=== PATIENT | female | born 1950 | race Caucasian/White ===

== ENCOUNTER → 2021-05-02 | Outpatient (CLI) | payer MEDICARE, OTHER, SELFPAY ==
--- NOTE | 2021-05-02 11:30 | PET_ITS ---
EXAMINATION: FDG PET/CT INDICATIONS: A 71-year-old female with history of cholangiocarcinoma presenting for restaging examination. COMPARISON EXAMINATION: CT of the abdomen and pelvis report dated 04/20/21, CT of the chest report dated 04/19/21 INDEX LESION SIZE SUV INTERPRETATION Abdominal retroperitoneum, pericaval, retrocrural soft tissue adenopathy 28.3 x 24.6-mm (largest) (frame 113) 8.9 (max) Fulfills quantitative criteria for viable neoplasm Right hemithorax pleural interface 7.1-mm (frame 185) 2.4 Fulfills quantitative criteria for viable neoplasm Left lobe hepatic parenchyma, segment IVb 27.2-mm (frame 134) 5.3 ratio > 2.0 Fulfills quantitative criteria for viable neoplasm, correlation with magnetic resonance imaging may be of benefit NON-INDEX LESION SIZE SUV INTERPRETATION Bilateral thoracic perihilum 2.1 (max) Quantitative criteria for viable neoplasm are not fulfilled TECHNIQUE: Following the intravenous administration of F-18 deoxyglucose, multiplanar image acquisitions of the neck, chest, abdomen and pelvis to level of mid thigh, obtained at one hour post radiopharmaceutical administration contemporaneously interpreted with the current CT of the neck, chest, abdomen and pelvis to level of mid thigh, dated 05/02/[address] of the abdomen and pelvis report dated 04/20/21, CT of the chest report dated 04/19/21 reveal: FINDINGS: 1. Multifocal increased glucose metabolism is defined in the upper-lower abdominal retroperitoneum, retrocrural and pericaval lymph node distributions generating a calculated maximal standard uptake value of 8.9. The maximal axial diameter of the largest individual metabolic, morphologic abnormality on review of CT of the abdomen and pelvis dated 05/02/21 is 28.3-mm (transverse) x 24.6-mm (AP). 2. Focal increased glucose concentration is observed in the right upper abdomen which appears associated with the left lobe of the hepatic (2.7) parenchyma involving segment IVb. The calculated maximal standard uptake value is 5.3, with a lesion to liver background ratio greater than 2.0. The maximal axial diameter of the metabolic abnormality is 27.2-mm (AP). 3. Enhanced FDG is observed in the right mid anteromedial hemithorax corresponding to peristernal soft tissue density generating a calculated maximal standard uptake value of 2.4. Borderline quantitative criteria for viable neoplasm are not fulfilled. The maximal axial diameter of the corresponding soft t issue density on review of CT of the chest dated 05/02/21 is 7.1-mm (transverse). 4. Normal physiologic distribution of the radiopharmaceutical is apparent in the splenic parenchyma, both renal units, bladder and visualized intestinal tract. The visualized portion of the cerebral cortical-subcortical structures demonstrate symmetric and preserved glucose metabolism. Prominent collecting system activity is noted in the left renal unit extending from the renal pelvis to the ureterovesical junction. Mild increased tracer concentration appears evident in the bilateral thoracic perihilum generating a calculated maximal standard uptake value of 2.1. Quantitative criteria for viable neoplasm are not fulfilled. Pertinent CT findings are as follows: CHEST: There are no parenchymal densities-nodules defined in the right and left hemithorax with discernible increased tracer concentration. There is atherosclerotic calcification defined in the thoracic aorta without evidence of dilatation-aneurysm formation. Bilateral axillary soft tissue with fatty hilus is ametabolic. There are no parenchymal densities-nodules defined in the right and left hemithorax with discernible increased tracer concentration. ABDOMEN AND PELVIS: There is atherosclerotic calcification defined in the abdominal aorta without evidence of dilatation-aneurysm formation. Pelvic arterial calcification is defined. Right and left inguinal subcentimeter soft tissue densities with fatty hilus are ametabolic. There is retained oral contrast material noted within the visualized intestinal tract. Calcifications are manifest in the lower pelvis associated with the uterus in proximity to the adnexal regions, without evidence of increased tracer concentration. SKELETAL: Degenerative changes are noted in the cervical, thoracic and lumbar spine without evidence of increased radiopharmaceutical concentration. PET/PET/CT Tumor Base -Thigh Init IMPRESSION: 1. ABNORMAL EXAMINATION INDICATIVE OF MALIGNANT VIABLE NEOPLASM. 2. Increased glucose concentration multifocal apparent in the abdominal retroperitoneum, pericaval and retrocrural lymph node distributions fulfill quantitative criteria for viable neoplasm. 3. Enhanced tracer uptake noted in the right mid anteromedial hemithorax corresponding to peristernal soft tissue nodule fulfills borderline quantitative criteria for viable neoplasm. 4. The increase in labeled glucose noted in the right upper abdomen which appears associated with the left lobe of the hepatic parenchyma fulfills quantitative criteria for viable hepatic metastatic disease. Correlation with magnetic resonance imaging may be of benefit for further evaluation. (Davion et al, Archives of Surgery, 133:510 1998). 5. Facilitated radiopharmaceutical activity noted in the bilateral thoracic perihilum does not fulfill quantitative criteria for viable neoplasia. Electronic Signature Arnold Sanon D.O. Accurate Quantification of SUVs for this report are calculated using the exclusive [employer], (U.S. Patent No. 10, 674, 983). Standardization and correction of the FDG SUV metric exclusively available with [employer] intellectual property, allow for vendor non-specific objective quantitative sequential FDG PET-CT comparison and otherwise unobtainable optimization of the sensitivity and specificity of the examination. Electronically Signed: Arnold Sanon DO at 19:20 EST ,
== END | disposition home or self-care (01) ==
LOC: ONC 11:20
PROVIDERS: PCP Family Medicine; Referring Provider Surgery; Visit Provider Surgery
DX: C22.1 Intrahepatic bile duct carcinoma (principal)
CPT/HCPCS: 78815; A9552

== ENCOUNTER 2021-05-21 09:00 | Outpatient (CLI) | payer MEDICARE, OTHER, SELFPAY ==
[2021-05-21] VITALS (12 sets, daily range): BP systolic 103–134; BP diastolic 32–96; PULSE 64–725; RESP 8–72; TEMP 36.6; O2SAT 10–100
--- NOTE | 2021-05-21 | ASPIGT_PTH ---
PATIENT: JENNY RAZA LOC: [place] U#:[id number] AGE/SX: 71/F ROOM: RE05/21/[address]: Dr. Braxton Soto MD : 1950 BED: DIS: 05/21/2021 SPEC #: [id number] RECD: 05/21/21 13:25 STATUS: IGNACIO DALIA #: [id number] MYA: 05/21/21 00:[address]: Braxton Soto DEPT: SURGICAL PATHOLOGY RECD BY: Luz Greene ENTERED: 05/21/21 13:26 SP TYPE: ASP RAD OTHR DR: Dr. Inderjit Felder MD Tissues: LYMPH NODE BIOPSY Procedures: FNA Specimen Adequacy Special Stain Group II Surgery Specimen Level IV Imprint (control) HEADER OPERATION: Periaortic lymph node, CT-guided biopsy PRE-OP DIAGNOSIS: Gallbladder carcinoma TISSUE SUBMITTED: Periaortic lymph node 18-gauge core x7 MICROSCOPIC DIAGNOSIS Periaortic lymph node, CT-guided needle core biopsy: Metastatic adenocarcinoma. See comment. AM:amanda 05/22/2021 COMMENT The specimen is evaluated at the time of biopsy by Dr. Hickey. Immediate Evaluation = Malignant cells present derived from non-small cell carcinoma. Immunohistochemistry ([id number]) supports the above diagnosis and favors an upper GI primary including the pnacreato-biliary system. Clinical correlation issuggested. Case has been reviewed in consultation with Dr. Hickey who concurs with the above diagnosis. IDC:SJ MICROSCOPIC DESCRIPTION Slides are reviewed. GROSS DESCRIPTION Received in fixative is one container labeled with the patient's name and designated periaortic lymph node. The specimen consists of multiple irregular fragments of light bateman soft tissue that in aggregate measure 1 x 0.1 x <0.1 cm. The specimen is totally submitted in one cassette. One touch imprint is prepared at the time of core biopsy. / AM:amanda 05/21/2021 TC:0 CPT: 59366, 59626
--- NOTE | 2021-05-21 | IMM_PTH ---
PATIENT: JENNY RAZA LOC: CT U#:[id number] AGE/SX: 71/F ROOM: RE05/21/[address]: Dr. Braxton Soto MD : 1950 BED: DIS: 05/21/2021 SPEC #: [id number] RECD: 05/22/21 14:17 STATUS: IGNACIO RECassia #: [id number] MYA: 05/21/21 00:[address]: Braxton Soto DEPT: IMMUNOHISTOCHEMISTRY RECD BY: Annie Dupree ENTERED: 05/22/21 14:20 SP TYPE: IMMUNO OTHR DR: Dr. Inderjit Felder MD Tissues: Periaortic tissue Procedures: RCC (add) Thyroglobulin (add) NAPSIN A (add) CK20 (add) CK7 (add) CK8 (add) HEP PAR (add) KI-67 (add) MAMM (add) P53 (add) OK (add) TTF1 (add) Pankeratin (add) GATA3 (add) P40 (add) CD44 (add) ER (initial) PHYSICIAN & [address] [address] SPECIMEN INFORMATION: Tissue Source: Periaortic lymph node Clinical Info: Gallbladder carcinoma Specimen Number: [id number] CPT code: 29498, 87425 x16 METHODOLOGY: Deparaffinized sections of prefer/formalin-fixed tissue or PAP/DQ stained slides are incubated with monoclonal/polyclonal antibodies/oligonucleotide probes. Localization is made via biotin free immunoperoxidase method. Appropriate controls are performed and reacted as expected. Results on target cell population are indicated in the following table: RESULTS: ANTIBODY / CLONE RESULT ER (6F11) negative OK (1E2) negative Mammaglobin (31A5) negative GATA3 (L50-823) negative AE1-3 (AE1/AE3/PCK26) positive CK7 (OV-TL12/30) positive, focal CK8 (94tthtC73) positive CK20 (KS20.8) positive, rare TTF-1 (8G7G3/1) negative Napsin A (Rabbit Polyclonal) positive, rare HepPar (OCh1E5) negative RCC (PN-15) negative Thyro (2H11+6E1) negative anti-CD44 (SP37) negative P53 (DO-7) negative Ki-67 (30-9) positive, 25% P40 (BC28) negative These tests were developed and their performance characteristics determined by [facility]. They may not have been cleared or approved by the U.S. Food and Drug Administration. The FDA has determined that such clearance or approval is not necessary. The above immunohistochemical/dualISH markers are ordered and reviewed by the Pathologist. INTERPRETATION: Periaortic lymph node, CT-guided biopsy: Metastatic adenocarcinoma. See comment. AM:amanda 05/23/2021 Comment: An upper GI tract primary including pancreatobiliary tract is favored.
--- NOTE | 2021-05-21 09:23 | CT_ITS ---
PROCEDURE: CT-guided percutaneous needle biopsy of retroperitoneal lymphadenopathy. DATE OF EXAMINATION: 05/21/2021 INDICATION: Female, 71 years old with history of cholangiocarcinoma PHYSICIAN: Dr. Jordy Rodarte RADIATION DOSAGE (If Supplied By Facility): DLP = ( 818.76 ) mGycm CONSENT: The risks, benefits and alternatives to the procedure were explained to the patient, and the patient agreed to the procedure and signed the consent. SEDATION: 1 mg of VERSED and 100 mcg of FENTANYL LIDOCAINE: 15 mL. STERILE BARRIER TECHNIQUE: The following sterile barrier precautions were used during the procedure: hand hygiene; use of 2% chlorhexidine aseptic; use of a mask, sterile gown, sterile gloves, and a large sterile sheet. PROCEDURE/TECHNIQUE: The risks, benefits, and alternatives to the procedure were explained to patient, and the patient agreed to the procedure and signed a consent form for the procedure. A timeout was performed to confirm the patient''s identity, the type of procedure, to be performed and the site of entry. As no previous CT examinations with contrast were available at this facility, a initial CT abdomen with IV contrast was performed to better delineate the anatomy and to identify suitable nodes. That CT abdomen report is dictated separately. A director of scout work image was obtained and a suitable left retroperitoneal para-aortic node was selected for percutaneous biopsy. The left flank skin surface was marked and then prepared with sterile technique for biopsy. The skin surface was anesthetized with local LIDOCAINE using a 25-gauge needle. A 22-gauge spinal needle was then placed with sequential administration of LIDOCAINE deeper into the skin and paraspinal muscles. After proper numbing, a 17-gauge trocar was advanced into the selected left retroperitoneal para-aortic node. Appropriate positioning was confirmed and then approximately 5 samples were obtained utilizing a 18-gauge Corvacet needle. Onsite pathology confirmed that only one sample yielded adequate tissue while the remainder were fragmented. The introducer trocar was then repositioned to a adjacent lymph node. 2 18-gauge core samples were obtained and deemed to be adequate by on-site pathology. The needle was then removed and dressing was applied. COMPLICATIONS: Immediate postoperative CT without contrast was obtained. There was demonstration of trace foci of air along the needle tract. There is also trace left psoas intramuscular hematoma as well as trace hemorrhage in the left retroperitoneal fat. Although these were expected postoperative findings, the patient was laid on her left side during her 2 hour observation period. A follow-up CT without contrast was obtained 2 hours post procedure which demonstrated stable findings with no enlarging hemorrhage. Patient was discharged home in stable condition. CT/Biopsy/Inj or Needle Placement IMPRESSION: CT-guided left retroperitoneal para-aortic lymph node biopsy as detailed above. Electronically Signed: Jordy Rodarte, at 15:40 EDT ,
--- NOTE | 2021-05-21 10:13 | CT_ITS ---
INDICATION: To localize lymph node for CT guided biopsy EXAMINATION: CT ABDOMEN WITH IV CONTRAST CT Abdomen W/ Contrast Injection TECHNIQUE: Helically acquired images were obtained of the abdomen following IV contrast. A radiation dose optimization technique was used for this scan. IV Contrast dosage and agent: 100 ISOVUE-300 Oral contrast: None. COMPARISON: PET/CT from 05/02/2021 FINDINGS: Limited views of the abdomen were obtained prior to the patient scheduled for lymph node biopsy to better delineate the patient''s anatomy and localize suitable lymph nodes utilizing IV contrast study. Visualized lung bases: Unremarkable. Visualized liver: 2.5 cm heterogeneous lesion in segment IVb which appears to correspond to the area concerning for metastatic lesion on the recent PET scan. Gallbladder: Not visualized and may be surgically absent. Common bile duct is dilated measuring up to 1.4 cm in width with abrupt cut off at the level of the pancreatic head and is similar to recent PET scan. Mild intrahepatic duct dilation. No obvious mass or site of obstruction. Visualized spleen: Unremarkable. Pancreas: No focal parenchymal lesions. No duct dilation. Adrenal glands: Unremarkable. Kidneys: No cystic or solid masses. No hydronephrosis. Visualized GI tract: No significant wall thickening or bowel dilation. Anastomotic sutures in the mid abdomen. Visualized peritoneum/mesentery/retroperitoneum: Demonstration of extensive mesenteric and retroperitoneal lymphadenopathy. For example, 2 left para-aortic nodes amenable to percutaneous biopsy measure up to 3.4 cm and 3.3 cm in greatest dimension. Vasculature: Scattered arterial atherosclerotic disease. No acute findings. Bones/soft tissues: No acute fracture or subluxation. No destructive osseous lesions. Soft tissues are unremarkable. CT/Abdomen WITH IV Contrast IMPRESSION: 1. Pre lymph node biopsy of the abdomen was obtained with IV contrast the better delineate patient''s anatomy and localize suitable lymph nodes. Remonstration of extensive lymphadenopathy with a few nodes amenable to percutaneous biopsy. 2. 2.5 cm right hepatic lobe lesion corresponding to the area concerning for metastatic lesion on the recent PET scan. 3. Intra and extra hepatic bile duct dilation with common bile duct measuring up to 1.4 cm in width similar to recent PET scan. Electronically Signed: Jordy Rodarte, at 14:11 EDT ,
[2021-05-21 10:26] LABS: CREATININE FINGERSTICK 0.8 mg/dL (0.55-1.02); EGFR FINGERSTICK > 60.0000 mL/min (>60)
[2021-05-21] MEDS: Midazolam 2 MG/2 ML Syringe IV ×2 (10:32→11:07)
[2021-05-21] MEDS: fentaNYL 100 MCG/2 ML Ampul IV ×2 (10:32→11:07)
[2021-05-21] MEDS: Lidocaine 2% (20 ml mdv) 20 ML Vial INFILT (11:07)
--- NOTE | 2021-05-21 13:58 | CT_ITS ---
INDICATION: post biopsy eval of hematoma EXAMINATION: CT ABDOMEN WITHOUT CONTRAST - CT Abdomen W/O Contrast Injection TECHNIQUE: Multiple axial images were obtained of the abdomen without oral or IV contrast. A radiation dose optimization technique was used for this scan. IV Contrast dosage and agent: None. Oral contrast: None. COMPARISON: Same day CT abdomen with contrast prior to the procedure. Same day Intraoperative noncontrast CT. FINDINGS: CT abdomen without contrast was obtained to assess for retroperitoneal hematoma status post lymph node biopsy. There is redemonstration of slight asymmetrical thickening of the left psoas muscle with some intramuscular foci of air. There is also trace foci of air along the lymph node that was biopsied. There is minimal trace hemorrhagic fluid in the left retroperitoneal fat at the level of the biopsy site. Expected foci of air along the needle tract in the left paraspinal musculature. Overall, these findings are unchanged from immediate post procedure CT from same day and represents unchanged small left psoas and minimal trace left retroperitoneal hematoma. The remainder of the findings are unchanged. CT/Abdomen without IV Contrast IMPRESSION: Expected postoperative changes with small left psoas intramuscular hematoma and minimal trace left retroperitoneal hematoma, both stable from immediate postoperative CT [address] findings and procedure were discussed with patient before, during, after the biopsy, and after this CT scan. Patient is in stable condition and is cleared for discharge home. Electronically Signed: Jordy Rodarte, at 15:14 EDT ,
== END 2021-05-21 23:59 | disposition home or self-care (01) ==
LOC: CT 09:01
PROVIDERS: PCP Family Medicine; Visit Provider Surgery
DX: C77.2 Secondary and unspecified malignant neoplasm of intra-abdominal lymph nodes (principal)
CPT/HCPCS: 74150; 74160; 74183; 77012; 88172; 88305; 88313; 88341; 88342; 99156; 99157; J7040; Q9967; A4216

== ENCOUNTER 2021-08-25 13:56 | Inpatient (IN) | payer MEDICARE, OTHER, SELFPAY ==
[2021-08-25 13:58] VITALS: BP 94/61; PULSE 86; RESP 16; TEMP 36.2; O2SAT 100; BMI 17.6
--- NOTE | 2021-08-25 14:29 | EDS_ITS ---
HPI HPI - GI History of Present Illness Chief Complaint: Diarrhea Narrative Narrative: 71-year-old female presenting with diarrhea. She states she is able to keep down fluids, water, Pedialyte but is having lots of episodes of diarrhea. She states that this morning she had about 3 hours of diarrhea. Yesterday she was sent to the infusion center at [facility] because she could not get a place at [facility] to be rehydrated. Patient has a history of gallbladder cancer and had her last chemotherapy a few weeks ago. She states that she has been having extreme bouts of diarrhea and her potassium and magnesium have been off. States that when she comes into the infusion to have her fluids and electrolytes repleted she feels much better but in between she gets lightheaded, dizzy because she gets so dehydrated. She is not having any abdominal pain. No fever. No black or bloody stools. [facility] Medical History Rupture of small intestine Seasonal allergies Vaginal atrophy Home Medications calcium carbonate 600 mg-vitamin D3 12.5 mcg (500 unit) capsule (Calcium 600 with Vitamin D3) 1 cap PO DAILY 11/10/19 [History Last Taken Unknown] clobetasol 0.05 % topical ointment 1 applic topical QODAY 11/10/19 [History Last Taken Unknown] estradiol 1 g vaginal QODAY 09/19/20 [History Last Taken Unknown] acetaminophen 325 mg tablet 650 mg PO Q6H PRN Pain 05/18/21 [History Last Taken Unknown] magnesium chloride 71.5 mg (magnesium chloride) tablet,delayed release 71.5 mg PO BID 05/18/21 [History Last Taken Unknown] potassium chloride 20 mEq tablet,extended release(part/cryst) 20 meq PO BID 05/18/21 [History Last Taken Unknown] prochlorperazine maleate 10 mg tablet (Compazine) 10 mg PO Q6H PRN Pain 05/18/21 [History Last Taken Unknown] Allergy/AdvReac Type Severity Reaction Status Date / Time erythromycin base Allergy Mild upset Verified 08/25/21 13:58 stomach Sulfa (Sulfonamide Allergy Mild dizziness, Verified 08/25/21 13:58 Antibiotics) nausea, sweaty diphenhydramine AdvReac Other Verified 08/25/21 13:58 [From Benadryl] Family History Brother Prostate cancer Drug abuse Alcohol abuse Surgical History Bartholin cyst S/P ectopic Social History Smoking Status: Former smoker alcohol intake: never substance use type: does not use caffeine: No what type of physical activity do you participate in: walking, yoga and other details: ti kaye for balance frequency: daily seatbelt use: always do you feel safe at home: Yes additional social history: -Lebron Patient works at [employer] ROS ED Constitutional Constitutional ED: Denies chills or fever(s) ENT ENT ED: Denies rhinorrhea or sore throat Cardiovascular Cardiovascular: Denies chest pain or palpitations Respiratory/Chest Respiratory/Chest: Denies cough or dyspnea Gastrointestinal Gastrointestinal: Reports diarrhea; Denies abdominal pain, constipation, nausea or vomiting Genitourinary Genitourinary ED: Denies dysuria or hematuria Musculoskeletal Musculoskeletal: Denies arthralgias Integumentary Denies abscess Neurologic Neurologic: Denies headache(s) or paresthesias Psychiatric Psychiatric: Denies anxiety or depression Endocrine Endocrinology: Denies polydipsia or polyphagia EXAM Physical Exam Const Vital Signs: 08/25/21 13:58 08/25/21 16:00 Temperature 97.2 F L Temperature Source Temporal Pulse Rate 86 65 Respiratory Rate 16 14 Blood Pressure 94/61 101/78 Blood Pressure Mean 72 85 Pulse Ox 100 99 Oxygen Delivery Method Room Air Room Air Positive well nourished General Appearance ED: NAD; Negative for pallor HEENT Reports moist mucous membranes normocephalic and atraumatic Eyes PERRL and EOMs intact bilaterally Resp normal respiratory effort and clear to auscultation bilaterally Cardio regular rate and regular rhythm GI Inspection: Negative for abdominal distention Extremity General Extremety ED: Negative for edema or tenderness General Extremity: Negative for edema Neuro CN's II-XII intact bilaterally, moves all extremities and no sensory deficits noted Sensorium / Orientation: alert, oriented to person, oriented to place and oriented to time Motor Exam: strength 5/5 throughout Psych mental status grossly normal and thought process normal Skin General Skin Exam: Negative for jaundice or pallor MDM MDM MDM Narrative Medical decision making narrative: Patient was given 2 L of IV fluids. I obtained blood work and her white blood cell count is 1.2 which is down from 1.8. Her hemoglobin is 9 which is down from 10 and this is just this week. Her platelets are also low at 145 and previously 176 in comparison to her blood work on 08/24/2021. Her renal function and electrolytes are pretty unremarkable. Her sodium is 132, potassium 3.4, magnesium is normal. Her LFTs are slightly bumped but not significantly and she does have liver metastasis. I spoke with Dr. Stephens and although she does not need any significant admission criteria currently he expressed the concern to me that he has been dealing with this all week and been able to get her hydrated as an outpatient but was running into difficulty because his outpatient infusion center had been full. She had to go to [place] yesterday and he does not have the ability to do anything for her over the weekend and she would be coming to the ER multiple times because of this. He did recommend that I give her some Sandostatin which I did. I expressed this concern to the hospitalist and he was amenable to admission for hydration and to replace her electrolytes. He will continue the simvastatin in the hospital. Stool studies are pending. Impression: 1 diarrhea 2. Pancytopenia 3. Hypokalemia 4. Hyponatremia 5. Transaminitis Lab Data Labs: Laboratory Results - last 24 hr 08/25/21 08/25/21 15:00 15:00 WBC 1.2 L* RBC 2.91 L Hgb 9.0 L Hct 26.4 L MCV 90.7 MCH 30.9 MCHC 34.1 RDW Std Deviation 63.5 H RDW Coeff of Roldan 19.3 H Plt Count 145 L MPV 9.6 Immature Gran % (Auto) 1.600 H Neut % (Auto) 53.7 Lymph % (Auto) 20.3 [place] % (Auto) 22.0 H Eos % (Auto) 1.6 Baso % (Auto) 0.8 Absolute Neuts (auto) 0.7 L Absolute Lymphs (auto) 0.25 L Nucleated RBC % 0 Differential Comment SCANNED Diff Path Review May foll Reactive Lymphocytes 1+ Sodium 132 L Potassium 3.4 L Chloride 98 Carbon Dioxide 28.0 Anion Gap 6 BUN 10 Creatinine 0.60 Estim Creat Clear Calc 40.40 Est GFR (MDRD) Af Amer 128 Est GFR (MDRD) Non-Af 105 BUN/Creatinine Ratio 16.7 Glucose 115 H Calcium 8.3 L Magnesium 1.7 Total Bilirubin 0.30 AST 106 H ALT 163 H Alkaline Phosphatase 346 H Total Protein 5.8 L Albumin 2.5 L Globulin 3.3 Albumin/Globulin Ratio 0.8 L Lipase 13 L Discharge Plan Triage Chief Complaint: Diarrhea ED Provider: Adán Higginbotham Dx/Rx/DC Orders Prescriptions: No Action calcium carbonate-vitamin D3 [Calcium 600 with Vitamin D3] 600 mg(1,500mg) - 500 unit capsule 1 cap PO DAILY clobetasol 0.05 % ointment 1 applic TOPICAL QODAY estradiol 0.01 % (0.1 mg/gram) cream 1 g vaginal QODAY acetaminophen 325 mg Tablet 650 mg PO Q6H PRN (Reason: Pain) prochlorperazine maleate [Compazine] 10 mg Tablet 10 mg PO Q6H PRN (Reason: Pain) potassium chloride [K-Dur] 20 mEq Tablet,Er Particles/Crystals 20 meq PO BID magnesium chloride 71.5 mg Tablet,Delayed Release (Dr/Ec) 71.5 mg PO BID Primary Care Provider: Unique Mijares Referrals: Unique Mijares MD [Primary Care Provider] -
[2021-08-25] MEDS: 0.9% Normal Saline 1,000 ML 999 ML IV ×2 (15:03→16:43)
[2021-08-25 15:13] LABS: Absolute Lymphocyte Count 0.25 X10^3/uL (0.83-4.51); Absolute Neutrophil Count 0.7 X10^3/uL (2.0-7.7); Basophil# 0.01 X10^3/uL; Basophil% 0.8 % (0-1); Eosinophil# 0.02 X10^3/uL; Eosinophils% 1.6 % (0-5); Hematocrit 26.4 % (37-47); Lymphocyte # 0.25 X10^3/ul (0.83-4.51); Lymphocyte % 20.3 % (19-41); Mean Corp Hgb Conc 34.1 g/dL (32-36); Mean Corpuscular Hgb 30.9 pg (27.0-32.0); Mean Corpuscular Volume 90.7 fL (81-99); Mean Platelet Vol. 9.6 fl (6.2-12.0); Monocyte# 0.27 X10^3/uL; NRBC Flagged by Analyzer 0 % (0-5); Neutrophil # 0.66 X10^3/uL (2.7-7.7); Neutrophil % 53.7 % (47-70); POSITIVE COUNT YES; POSITIVE DIFFERENTIAL YES; POSITIVE MORPHOLOGY YES; Platelet Count 145 K/mm3 (150-450); RBC Distribution Width CV 19.3 % (11.6-14.6); RBC Distribution Width SD 63.5 fl (35.1-43.9); Red Blood Count 2.91 M/mm3 (4.2-5.4)
[2021-08-25 15:16] LABS: Differential Indicated SCAN CRITERIA MET; White Blood Count 1.2 K/mm3 (4.4-11.0)
[2021-08-25 15:29] LABS: ALB/GLOB Ratio 0.8 RATIO (0.9-2.4); AST(SGOT) 106 U/L (15-37); Alanine Aminotransfer ALT/SGPT 163 U/L (13-56); Albumin, Serum 2.5 g/dL (3.2-5.0); Alkaline Phosphatase 346 U/L (45-117); Anion Gap 6 (5-15); BUN 10 mg/dL (7-18); BUN/Creat Ratio 16.7 RATIO (10-20); Calcium,Total 8.3 mg/dL (8.5-10.1); Chloride 98 mmol/L (98-107); EST Glomerular Filtration Rate 105 mL/min (>60); Est Glom Filt Rate - Afr Amer 128 mL/min (>60); Globulin 3.3 g/dL (2.2-4.2); Glucose 115 mg/dL (74-106); Lipase 13 U/L (73-393); Magnesium 1.7 mg/dL (1.6-2.6); Potassium 3.4 mmol/L (3.5-5.1); Protein, Total 5.8 g/dL (6.4-8.2); Sodium Level 132 mmol/L (136-145)
[2021-08-25 15:43] LABS: Differential Comment SCANNED
[2021-08-25 15:44] LABS: Reactive Lymphocyte 1+
[2021-08-25 16:00] VITALS: BP 101/78; PULSE 65; RESP 14; O2SAT 99
--- NOTE | 2021-08-25 16:59 | PCM.HP.STD ---
[facility] - General General Date of Admission: 08/25/21 Date of Service: 08/25/21 Chief Complaint: Diarrhea ongoing for about 2 weeks. 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 She is trying to self hydrate, having Pedialyte still having diarrhea. On average she is having 4-5 bouts of diarrhea, 15-20 times. She states sometimes she has large volume sometimes a small, watery in consistency, nonbloody. She denies abdominal pain/discomfort or cramps. Her oncologist Dr. Stephens Center yesterday to [facility] where she had fluids and electrolyte repleted but is still she is dehydrated. She frequently complains of dizziness lightheadedness and she knows that she has to get up and walk slowly. Denies abdominal pain, GI bleed including hematemesis melena or hematochezia. ER physician talked to Dr. Stephens and he advised octreotide 100 mcg IV every 8 hourly. Patient already on loperamide. She did not had infectious GI work-up yet. Stool test for C. difficile, lactoferrin and enteric bacterial panel has ordered. Patient also said she has intermittent dry cough and she attributes to putting the mask. Denies sputum production, tachypnea, labored breathing. She has chronic shortness of breath on exertion due to weakness. ED vitals BP 101/78. Heart rate 65. No hypoxia. Labs reviewed and discussed in assessment and plan. [facility] Medical History Rupture of small intestine Seasonal allergies Vaginal atrophy Home Medications calcium carbonate 600 mg-vitamin D3 12.5 mcg (500 unit) capsule (Calcium 600 with Vitamin D3) 1 cap PO DAILY 11/10/19 [History Last Taken Unknown] clobetasol 0.05 % topical ointment 1 applic topical QODAY 11/10/19 [History Last Taken Unknown] estradiol 1 g vaginal QODAY 09/19/20 [History Last Taken Unknown] acetaminophen 325 mg tablet 650 mg PO Q6H PRN Pain 05/18/21 [History Last Taken Unknown] magnesium chloride 71.5 mg (magnesium chloride) tablet,delayed release 71.5 mg PO BID 05/18/21 [History Last Taken Unknown] potassium chloride 20 mEq tablet,extended release(part/cryst) 20 meq PO BID 05/18/21 [History Last Taken Unknown] prochlorperazine maleate 10 mg tablet (Compazine) 10 mg PO Q6H PRN Pain 05/18/21 [History Last Taken Unknown] Allergy/AdvReac Type Severity Reaction Status Date / Time erythromycin base Allergy Mild upset Verified 08/25/21 13:58 stomach Sulfa (Sulfonamide Allergy Mild dizziness, Verified 08/25/21 13:58 Antibiotics) nausea, sweaty diphenhydramine AdvReac Other Verified 08/25/21 13:58 [From Benadryl] Family History Brother Prostate cancer Drug abuse Alcohol abuse Surgical History Bartholin cyst S/P ectopic Social History Smoking Status: Former smoker alcohol intake: never substance use type: does not use caffeine: No what type of physical activity do you participate in: walking, yoga and other details: ti kaye for balance frequency: daily seatbelt use: always do you feel safe at home: Yes additional social history: -Lebron Patient works at [employer] ROS ROS Narrative Constitutional: Reports fatigue and weakness. Severely dehydrated. HEENT: Reports systems reviewed and no addt'l complaints, except as documented Respiratory/Chest: Denies chest pain, shortness of breath at rest. Chronic shortness of breath on exertion. Mild cough Gastrointestinal: As described in HPI. Denies coffee ground emesis, hematemesis or vomiting Genitourinary: Denies burning urination or new urinary tract symptoms Musculoskeletal: Chronic mild joint pain. Neurologic: Denies seizure-like activity. No focal weakness skin: No ulcer. No rash Endocrinology: Reports systems reviewed and no addt'l complaints, except as documented Hematologic/Lymphatic: Reports systems reviewed and no addt'l complaints, except as documented Oncology: GB cancer. Rest 14 ROS are negative except as mentioned in HPI Vital Signs Vital Signs Vital Signs: 08/25/21 13:58 08/25/21 16:00 Temperature 97.2 F L Temperature Source Temporal Pulse Rate 86 65 Respiratory Rate 16 14 Blood Pressure 94/61 101/78 Blood Pressure Mean 72 85 Pulse Ox 100 99 Oxygen Delivery Method Room Air Room Air Weight Weight: 106 lb 4.205 oz Body Mass Index (BMI) 17.6 Physical Exam Narrative Physical exam General: Alert, Oriented x3, Cooperative. Severe protein calorie malnutrition. BMI 17.7 kg per metered square HEENT: Atraumatic, PERRLA, EOMI, Normocephalic Oral: Oral mucosa dry. No Gingival or Mucosal Lesions/ Ulcerations Neck: Supple, No JVD, Negative Carotid Bruits Lungs: Air entry diminished in bilateral lung bases. No crepitation/rhonchi. No labored breathing. No hypoxia/tachypnea Cardiovascular: Regular rate, Regular Rhythm, Normal S1, Normal S2, No murmurs Abdomen: Bowel Sounds Present, Soft, Non Tender, Non-Distended : No renal angle tenderness. No suprapubic tenderness. Extremities: No edema, Capillary Refill Less than 3 Seconds Skin: No rashes, No breakdown Musculoskeletal: Moderate muscle atrophy of extremities. No Tenderness to Palpation of Joints or Extremities Neurological: Cranial nerves II-XII grossly intact, DTR 2+/4. No focal neurologic signs. Psych/Mental Status: Flat affect. Results Lab / Micro Data Result Diagrams: 08/25/21 15:00 08/25/21 15:00 Labs: Laboratory Results - last 24 hr 08/25/21 15:00: WBC 1.2 L*, RBC 2.91 L, Hgb 9.0 L, Hct 26.4 L, MCV 90.7, MCH 30.9, MCHC 34.1, RDW Std Deviation 63.5 H, RDW Coeff of Roldan 19.3 H, Plt Count 145 L, MPV 9.6, Immature Gran % (Auto) 1.600 H, Neut % (Auto) 53.7, Lymph % (Auto) 20.3, Bibb % (Auto) 22.0 H, Eos % (Auto) 1.6, Baso % (Auto) 0.8, Absolute Neuts (auto) 0.7 L, Absolute Lymphs (auto) 0.25 L, Nucleated RBC % 0, Differential Comment SCANNED, Diff Path Review May foll, Reactive Lymphocytes 1+ 08/25/21 15:00: Sodium 132 L, Potassium 3.4 L, Chloride 98, Carbon Dioxide 28.0, Anion Gap 6, BUN 10, Creatinine 0.60, Estim Creat Clear Calc 40.40, Est GFR (MDRD) Af Amer 128, Est GFR (MDRD) Non-Af 105, BUN/Creatinine Ratio 16.7, Glucose 115 H, Calcium 8.3 L, Magnesium 1.7, Total Bilirubin 0.30, AST 106 H, ALT 163 H, Alkaline Phosphatase 346 H, Total Protein 5.8 L, Albumin 2.5 L, Globulin 3.3, Albumin/Globulin Ratio 0.8 L, Lipase 13 L Assessment & Plan Assessment/Plan (1) Chemotherapy induced diarrhea: PLAN: Plan 71-year-old female with history of stage IV GB cancer chemotherapy about 2 and half weeks ago admitted with severe dehydration due to prolonged diarrhea 1. Subacute diarrhea most likely due to mucositis, chemotherapeutic adverse effect associated with severe dehydration/intravascular volume depletion: Patient is clinically dehydrated. BUN/creatinine 10/0.6 but may be falsely normal because of low muscle mass. IV fluid normal saline 100 mill per hour. Monitor intake and output. Enteric bacterial panel, stool C. difficile, stool lactoferrin and ova parasites ordered. Octreotide 100 mcg IV every 8 hourly first dose now started. If infectious work-up is negative, patient can have Imodium 2 mg every 4 hourly as needed. Serum magnesium and phosphorus normal. 2. Pancytopenia: Patient has leukopenia, neutropenia, ANC 0.7 thousand, H&H 9/26.4 and platelet count 1 45,000. Patient had normocytic normochromic anemia. Pancytopenia most likely due to chemotherapy. Neupogen ordered. Monitor CBC with differential daily. 3. Electrolyte abnormality: Patient has hypotonic hypovolemic hyponatremia. Hypokalemia. Electrolytes are getting replaced. Aggressive rehydration. For stage IV GB cancer primary metastasis to liver: DR. Stephens is consulted. 5. Severe protein calorie malnutrition: Timber Deadener consult ordered. 6. Other chronic comorbidities include vaginal atrophy, lichen sclerosis and seasonal allergies: DVT prophylaxis: High risk due to cancer. Lovenox 40 mg subcu daily. Discontinue if platelet count drops less than 50,000 or hemoglobin less than 8 g% Advanced directive/living will: Living will/advanced directive/end of life care: Patient does have living will or advanced directive. They do not have living will and present. Her daughter will let us know who is the power of deputy attorney general for health. After discussion of benefits/risks procedures involved with full code, DNR CC arrest and DNR CC, the patient said she does not want extreme measures but she is okay with intubation on ventilator. This was confusing and nurse tried to convince her that intubation ventilator/CPR are extreme measures constant cardiopulmonary resuscitation. For now, daughter and patient agreed for full code and will let us know about the details and living will. I also educated she can change the CODE STATUS at any time. Patient does want artificial life support including intubation, tube feed, ventilator and/chest compression, central venous catheter, vasopressor and DC shock if needed Total time spent in [id number] encounter in discussion of advanced directive 16 minutes. Charges/Coding Visit Charges Inpatient E&M: 85704 Init Hosp L3 Procedures Hospitalists Procedures: 78579 Advncd Care Plan 30 Min
[2021-08-25 17:06] LABS: Magnesium 1.8 mg/dL (1.6-2.6)
[2021-08-25 17:29] VITALS: BP 95/68; PULSE 78; RESP 16; TEMP 37.2; O2SAT 98
[2021-08-25 18:45] VITALS: BMI 18.1
--- NOTE | 2021-08-25 19:42 | RAD_ITS ---
STUDY: X-RAY CHEST REASON FOR EXAM: Female, 71 years old. cough, had chemotherapy 2 wks TECHNIQUE: PA and lateral views of the chest. COMPARISON: None. FINDINGS: Left chest port with tip of catheter terminating in the lower SVC. Ill-defined airspace disease in the left lung base correlating to lingular infiltrate on lateral view. There is no demonstrated pleural abnormality. Normal size heart. Normal mediastinum and greg. Normal visualized pulmonary arteries. Normal visualized aortic arch and descending thoracic aorta. There are diffuse degenerative changes of the visualized thoracic spine. Normal visualized ribs, clavicles, and shoulders. There is no demonstrated abnormality of the visualized soft tissue structures of the upper abdomen. RAD/Chest PA and Lateral IMPRESSION: Lingular infiltrate. Electronically Signed: Matty Yung MD ([place]) at 20:26 EDT ,
[2021-08-25] MEDS: Potassium Chloride 10mEq/100mL 10 MEQ/100 ML IV.SOLN. 100 MEQ IV BOLUS ×4 (19:53→22:53)
[2021-08-25] MEDS: 0.9% Saline Lock 10 ML Syringe IV (19:53)
[2021-08-25] MEDS: TBO-FILGRASTIM 300 MCG/0.5 ML ML SC (20:51)
[2021-08-25] MEDS: Enoxaparin 40 MG/0.4 ML Syringe SC (20:52)
[2021-08-25] MEDS: Acetaminophen 325 MG Tablet 650 MG PO (21:36)
[2021-08-25 21:43] LABS: M R Staph aureus DNA By PCR Negative (Negative); Probe Check PASS; Specimen Processing Control PASS
[2021-08-25] MEDS: 0.9% Normal Saline 1,000 ML 100 ML IV (23:01)
[2021-08-25 23:07] VITALS: BP 103/57; PULSE 67; RESP 16; TEMP 37.3; O2SAT 95
[2021-08-26 04:50] VITALS: BP 126/59; PULSE 75; RESP 16; TEMP 37; O2SAT 95
[2021-08-26 06:31] LABS: ALB/GLOB Ratio 0.7 RATIO (0.9-2.4); AST(SGOT) 56 U/L (15-37); Alanine Aminotransfer ALT/SGPT 121 U/L (13-56); Albumin, Serum 2.4 g/dL (3.2-5.0); Alkaline Phosphatase 292 U/L (45-117); Anion Gap 6 (5-15); BUN 6 mg/dL (7-18); BUN/Creat Ratio 12.6 RATIO (10-20); Calcium,Total 8.5 mg/dL (8.5-10.1); Chloride 103 mmol/L (98-107); Creatinine, Serum 0.48 mg/dL (0.55-1.02); EST Glomerular Filtration Rate 138 mL/min (>60); Est Glom Filt Rate - Afr Amer 167 mL/min (>60); Estimated Creatinine Clearance 37.22 ml/min; Globulin 3.3 g/dL (2.2-4.2); Glucose 125 mg/dL (74-106); Potassium 3.4 mmol/L (3.5-5.1); Protein, Total 5.7 g/dL (6.4-8.2); Sodium Level 135 mmol/L (136-145)
--- NOTE | 2021-08-26 07:30 | CON.PCM_ITS ---
Assessment & Plan Assessment/Plan (1) Neutropenia associated with mucositis due to antineoplastic therapy: PLAN: -Granix was given yesterday for neutropenia -Call notify me if she has a temperature > 100.4 at home -Continue to monitor at home (2) Gallbladder cancer: PLAN: -Progression of disease and intolerance to chemotherapy: Liposomal irinotecan and 5-FU infusion -Change chemotherapy regimen once she is recovered. -Follow-up in the office in 2 weeks for FOLFOX (3) Chemotherapy induced diarrhea: PLAN: -Improved, C. difficile toxin is pending -Continue BRAT diet at home for next 24 hours -Resume Lomotil 4 times daily possible before meals & as needed -Kaopectate twice daily as needed for diarrhea -Possibly starting Levaquin if she is continue to have neutropenia associated with mucositis and diarrhea. PLAN: Plan - She may go home this afternoon if her C. difficile toxin and stool culture are negative. - Follow-up in my office in 2 weeks or sooner if she continues to have diarrhea or fever. 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 She is trying to self hydrate, having Ped ialyte still having diarrhea especially after eating.? On average she is having 4-5 bouts of diarrhea daily.? She states sometimes she has large volume of watery in consistency, nonbloody.? She denies abdominal pain/discomfort or cramps.? She has been on a BRAT diet for the last week. She has received IV fluid, and electrolyte replacement in the office for the last 3 days. She is currently on Lomotil and Kaopectate as needed for diarrhea. She woke up Friday morning with large volume of watery stool. She took Lomotil 2 tablets at 9AM and had diarrhea again after eating breakfast. She then took Lomotil and Kaopectate at noon. In the emergency room, she was neutropenic with moderate anemia. Although her electrolytes were not severely abnormal except for the hyponatremia & hypokalemia. She was admitted yesterday for observation and IV hydration. She started octreotide, and stool culture and C. difficile toxin pending. She had 1 bowel movement since admission. She has no abdominal cramping, bloody stool, nausea or vomiting. She has no jaundice, no fever, or chills. Her blood pressure and heart rate are normal this morning. [facility] Medical History (Updated 08/26/21 @ 07:[address] Flakita Stephens MD) Anemia Gallbladder cancer Migraines Rupture of small intestine Seasonal allergies Vaginal atrophy Home Medications calcium carbonate 600 mg-vitamin D3 12.5 mcg (500 unit) capsule (Calcium 600 with Vitamin D3) 1 cap PO DAILY supplement 11/10/19 [History Last Taken Unknown] clobetasol 0.05 % topical ointment 1 applic topical QODAY 11/10/19 [History Last Taken Unknown] estradiol 1 g vaginal QODAY supplement 09/19/20 [History Last Taken Unknown] acetaminophen 325 mg tablet 650 mg PO Q6H PRN Pain 05/18/21 [History Last Taken Unknown] magnesium chloride 71.5 mg (magnesium chloride) tablet,delayed release 71.5 mg PO BID supplement 05/18/21 [History Last Taken Unknown] potassium chloride 20 mEq tablet,extended release(part/cryst) 20 meq PO BID supplement 05/18/21 [History Last Taken Unknown] prochlorperazine maleate 10 mg tablet (Compazine) 10 mg PO Q6H PRN Pain 05/18/21 [History Last Taken Unknown] diphenoxylate-atropine 2.5 mg-0.025 mg tablet (Lomotil) 1 tab PO Q4H PRN Diarrhea 08/25/21 [History Last Taken Unknown] Allergy/AdvReac Type Severity Reaction Status Date / Time erythromycin base Allergy Mild upset Verified 08/25/21 13:58 stomach Sulfa (Sulfonamide Allergy Mild dizziness, Verified 08/25/21 13:58 Antibiotics) nausea, sweaty diphenhydramine AdvReac Other Verified 08/25/21 13:58 [From Bentroyryl] Family History Brother Prostate cancer Drug abuse Alcohol abuse Surgical History Bartholin cyst S/P ectopic Social History Smoking Status: Former smoker alcohol intake: never substance use type: does not use caffeine: No what type of physical activity do you participate in: walking, yoga and other details: ti kaye for balance frequency: daily seatbelt use: always do you feel safe at home: Yes additional social history: -[place] Patient works at [employer] Physical Exam Const alert, oriented x3 and no apparent distress General Appearance: comfortable Cardio regular rate, regular rhythm, S1 normal heart sound, S2 normal heart sound, no murmurs, no rub and no gallops GI normal to inspection, nondistended, normoactive bowel sounds, non-tender, non- distended and no masses Extremity normal capillary refill, no clubbing, cyanosis or edema and no pedal edema Lab / Micro Data Result Diagrams: 08/25/21 15:00 08/26/21 04:47 Labs: Laboratory Results - last 24 hr 08/25/21 15:00: WBC 1.2 L*, RBC 2.91 L, Hgb 9.0 L, Hct 26.4 L, MCV 90.7, MCH 30.9, MCHC 34.1, RDW Std Deviation 63.5 H, RDW Coeff of [place]old[place] 19.3 H, Plt Count 145 L, MPV 9.6, Immature Gran % (Auto) 1.600 H, Neut % (Auto) 53.7, Lymph % (Auto) 20.3, [place] % (Auto) 22.0 H, Eos % (Auto) 1.6, Baso % (Auto) 0.8, Absolute Neuts (auto) 0.7 L, Absolute Lymphs (auto) 0.25 L, Nucleated RBC % 0, Differential Comment SCANNED, Diff Path Review May foll, Reactive Lymphocytes 1+ 08/25/21 15:00: Sodium 132 L, Potassium 3.4 L, Chloride 98, Carbon Dioxide 28.0, Anion Gap 6, BUN 10, Creatinine 0.60, Estim Creat Clear Calc 40.40, Est GFR (MDRD) Af Amer 128, Est GFR (MDRD) Non-Af 105, BUN/Creatinine Ratio 16.7, Glucose 115 H, Calcium 8.3 L, Magnesium 1.7, Total Bilirubin 0.30, AST 106 H, ALT 163 H, Alkaline Phosphatase 346 H, Total Protein 5.8 L, Albumin 2.5 L, Globulin 3.3, Albumin/Globulin Ratio 0.8 L, Lipase 13 L 08/25/21 15:00: Phosphorus 3.0, Magnesium 1.8 08/25/21 20:04: MRSA (PCR) Negative 08/26/21 04:47: Sodium 135 L, Potassium 3.4 L, Chloride 103, Carbon Dioxide 26.0, Anion Gap 6, BUN 6 L, Creatinine 0.48 L, Estim Creat Clear Calc 37.22, Est GFR (MDRD) Af Amer 167, Est GFR (MDRD) Non-Af 138, BUN/Creatinine Ratio 12.6, Glucose 125 H, Calcium 8.5, Total Bilirubin 0.40, AST 56 H, ALT 121 H, Alkaline Phosphatase 292 H, Total Protein 5.7 L, Albumin 2.4 L, Globulin 3.3, Albumin/Globulin Ratio 0.7 L Micro: Microbiology 08/25/21 04:28 Stool Stool Lactoferrin - Final 08/25/21 20:04 Nasal Secretion SARS-CoV-2 & FLU Antigen (Rapid) - Final 08/25/21 19:50 Urine, Clean Catch Streptococcus pneumoniae Antigen (M - Final 08/25/21 19:50 Urine, Clean Catch Legionella Antigen - Final Radiology Impression Chest X-Ray 08/25/21 19:42 IMPRESSION: Lingular infiltrate. Electronically Signed: Matty Yung MD ([place]) at 20:26 EDT Reading Location ID and State: [facility] / [place] , Service support ,
[2021-08-26 08:15] LABS: Magnesium 1.9 mg/dL (1.6-2.6)
[2021-08-26] MEDS: Calcium Carb/Vitamin D 1 TABLET Tablet PO (08:37)
[2021-08-26] MEDS: Potassium Chloride Oral Tablet 20 MEQ 40 MEQ PO (08:38)
[2021-08-26] MEDS: Enoxaparin 40 MG/0.4 ML Syringe SC (08:38)
[2021-08-26] MEDS: TBO-FILGRASTIM 300 MCG/0.5 ML ML SC (08:39)
[2021-08-26 08:44] VITALS: BP 106/69; PULSE 73; RESP 18; TEMP 37; O2SAT 97
--- NOTE | 2021-08-26 09:43 | PN.HOSP_ITS ---
Subjective Subjective Follow-up on chemotherapy-induced diarrhea/neutropenia: Patient was seen and examined. She stated that she still having frequent bowel movements but a little firmer. It is no more watery. He denies any fever or c hills. Her appetite is slowly coming up. She denied any abdominal discomfort. Stool studies are pending. Objective Data Objective Data Vital Signs: Vital Signs Temp Pulse Resp BP Pulse Ox 98.6 F 73 18 106/69 97 08/26/21 08:44 08/26/21 08:44 08/26/21 08:44 08/26/21 08:44 08/26/21 08:44 Oxygen Delivery Method Room Air Weight: 44.4 kg Body Mass Index (BMI) 18.1 Intake & Output: Intake and Output for Last 24 Hours 08/24/21 08/25/21 08/26/21 23:59 23:59 23:59 Intake Total 2498.66 / 2498.66 51 / 51 Balance 2498.66 / 2498.66 51 / 51 Lab / Micro Data Result Diagrams: 08/25/21 15:00 08/26/21 04:47 Labs: Laboratory Results - last 24 hr 08/25/21 15:00: WBC 1.2 L*, RBC 2.91 L, Hgb 9.0 L, Hct 26.4 L, MCV 90.7, MCH 30.9, MCHC 34.1, RDW Std Deviation 63.5 H, RDW Coeff of Roldan 19.3 H, Plt Count 145 L, MPV 9.6, Immature Gran % (Auto) 1.600 H, Neut % (Auto) 53.7, Lymph % (Auto) 20.3, [place] % (Auto) 22.0 H, Eos % (Auto) 1.6, Baso % (Auto) 0.8, Absolute Neuts (auto) 0.7 L, Absolute Lymphs (auto) 0.25 L, Nucleated RBC % 0, Differential Comment SCANNED, Diff Path Review July, Reactive Lymphocytes 1+ 08/25/21 15:00: Sodium 132 L, Potassium 3.4 L, Chloride 98, Carbon Dioxide 28.0, Anion Gap 6, BUN 10, Creatinine 0.60, Estim Creat Clear Calc 40.40, Est GFR (MDRD) Af Amer 128, Est GFR (MDRD) Non-Af 105, BUN/Creatinine Ratio 16.7, Glucose 115 H, Calcium 8.3 L, Magnesium 1.7, Total Bilirubin 0.30, AST 106 H, ALT 163 H, Alkaline Phosphatase 346 H, Total Protein 5.8 L, Albumin 2.5 L, Globulin 3.3, Albumin/Globulin Ratio 0.8 L, Lipase 13 L 08/25/21 15:00: Phosphorus 3.0, Magnesium 1.8 08/25/21 20:04: MRSA (PCR) Negative 08/26/21 04:47: Sodium 135 L, Potassium 3.4 L, Chloride 103, Carbon Dioxide 26.0, Anion Gap 6, BUN 6 L, Creatinine 0.48 L, Estim Creat Clear Calc 37.22, Est GFR (MDRD) Af Amer 167, Est GFR (MDRD) Non-Af 138, BUN/Creatinine Ratio 12.6, Glucose 125 H, Calcium 8.5, Total Bilirubin 0.40, AST 56 H, ALT 121 H, Alkaline Phosphatase 292 H, Total Protein 5.7 L, Albumin 2.4 L, Globulin 3.3, Albumin/Globulin Ratio 0.7 L 08/26/21 04:47: Magnesium 1.9 Micro: Microbiology 08/25/21 04:28 Stool Stool Lactoferrin - Final 08/25/21 20:04 Nasal Secretion SARS-CoV-2 & FLU Antigen (Rapid) - Final 08/25/21 19:50 Urine, Clean Catch Streptococcus pneumoniae Antigen (M - Final 08/25/21 19:50 Urine, Clean Catch Legionella Antigen - Final Radiography Diagnostic Testing: Radiology Impression Chest X-Ray 08/25/21 19:42 IMPRESSION: Lingular infiltrate. Electronically Signed: Matty Yung MD ([place]) at 20:26 EDT , Physical Exam Narrative Physical exam: General: Alert, Oriented x3, Cooperative, No apparent distress, cachetic HEENT: Atraumatic Oral: Dry oral mucosa Neck: Supple Lungs: Diminished to auscultation Cardiovascular: HS I+II, regular, no murmurs Abdomen: Bowel Sounds Present, Soft, Non Tender Extremities: No edema Assessment & Plan Assessment/Plan (1) Chemotherapy induced diarrhea: (2) Gallbladder cancer: (3) Neutropenia associated with mucositis due to antineoplastic therapy: (4) Hypokalemia: (5) Hypomagnesemia: PLAN: Plan 1. Diarrhea, acute, likely secondary to chemotherapy-induced mucositis Patient still has frequent stools although not as watery Continue on octreotide Stool studies are pending 2. Hypokalemia/hypomagnesemia secondary to #1, replace, recheck in a.m. 3. Pancytopenia, chemotherapy-induced, improving, Continue on Granix, repeat blood work in a.m. 4. 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 Severe protein calorie malnutrition, BMI 16.3, supervisor carbon electrodes consulted, continue on supplements 6. DVT prophylaxis with Lovenox subcu
[2021-08-26 13:00] VITALS: O2SAT 93
[2021-08-26 14:55] VITALS: BP 103/59; PULSE 85; RESP 16; TEMP 36.8; O2SAT 98
[2021-08-26] MEDS: Diphenoxylate/Atrop 1 Tablet PO (16:40)
[2021-08-26] MEDS: 0.9% Normal Saline 1,000 ML 100 ML IV (16:40)
[2021-08-26] MEDS: Acetaminophen 325 MG Tablet 650 MG PO (18:32)
[2021-08-26 21:54] VITALS: BP 114/61; PULSE 65; RESP 16; TEMP 36.7; O2SAT 96
[2021-08-27] MEDS: 0.9% Saline Lock 10 ML Syringe IV (02:41)
[2021-08-27 04:35] LABS: Hematocrit 29.2 % (37-47); Hemoglobin 9.7 g/dL (12.0-15.0); Mean Corp Hgb Conc 33.2 g/dL (32-36); Mean Corpuscular Hgb 30.5 pg (27.0-32.0); Mean Corpuscular Volume 91.8 fL (81-99); Mean Platelet Vol. 9.4 fl (6.2-12.0); POSITIVE COUNT YES; POSITIVE DIFFERENTIAL YES; POSITIVE MORPHOLOGY YES; Platelet Count 145 K/mm3 (150-450); RBC Distribution Width CV 19.4 % (11.6-14.6); RBC Distribution Width SD 64.9 fl (35.1-43.9); Red Blood Count 3.18 M/mm3 (4.2-5.4)
[2021-08-27 04:45] VITALS: BP 115/71; PULSE 81; RESP 16; TEMP 36.8; O2SAT 95
[2021-08-27 04:49] LABS: Differential Indicated MANUAL DIFF
[2021-08-27 05:02] LABS: ALB/GLOB Ratio 0.8 RATIO (0.9-2.4); AST(SGOT) 29 U/L (15-37); Alanine Aminotransfer ALT/SGPT 84 U/L (13-56); Albumin, Serum 2.4 g/dL (3.2-5.0); Alkaline Phosphatase 247 U/L (45-117); Anion Gap 8 (5-15); BUN 5 mg/dL (7-18); BUN/Creat Ratio 10.4 RATIO (10-20); Calcium,Total 8.4 mg/dL (8.5-10.1); Chloride 103 mmol/L (98-107); Creatinine, Serum 0.48 mg/dL (0.55-1.02); EST Glomerular Filtration Rate 136 mL/min (>60); Est Glom Filt Rate - Afr Amer 165 mL/min (>60); Estimated Creatinine Clearance 41.49 ml/min; Globulin 3.2 g/dL (2.2-4.2); Glucose 84 mg/dL (74-106); Magnesium 1.8 mg/dL (1.6-2.6); Potassium 2.8 mmol/L (3.5-5.1); Protein, Total 5.6 g/dL (6.4-8.2); Sodium Level 137 mmol/L (136-145)
[2021-08-27 05:16] LABS: Eosinophil 2 % (0-5); Lymphocyte 14 % (19-41); Metamyelocyte 2 % (0-1); Monocyte 12 % (0-10); Neutrophil-Band 18 % (0-5); Neutrophil-Segmented 52 % (47-70); Total Cells Counted 100 (MANUAL DIFF)
[2021-08-27 05:17] LABS: Absolute Neutrophil Count 2.9 X10^3/uL (2.0-7.7); Neutrophil # 2.85 X10^3/uL (2.7-7.7)
[2021-08-27 05:18] LABS: Absolute Lymphocyte Count 0.55 X10^3/uL (0.83-4.51); Lymphocyte # 0.55 X10^3/ul (0.83-4.51)
[2021-08-27 05:19] LABS: Platelet Estimate ADEQUATE (ADEQ)
[2021-08-27 05:20] LABS: Ovalocyte 1+
[2021-08-27 05:21] LABS: Anisocytosis 2+; Macrocytosis 1+; Microcytosis 1+
[2021-08-27] MEDS: Diphenoxylate/Atrop 1 Tablet PO ×2 (06:24→16:37)
[2021-08-27 07:05] VITALS: O2SAT 95
--- NOTE | 2021-08-27 07:38 | PCM.CONS.B ---
Consult Date of Consult: 08/27/21 Reason for Consult She is doing much better today. Last bowel movement was 3 AM soft but not watery. She has no fever, chills, nausea, vomiting. No abdominal pain, distention, or jaundice. Lomotil seems to be working before meals. Neutropenia resolved, but hypokalemia this morning Assessment & Plan Assessment/Plan (1) Chemotherapy induced diarrhea: PLAN: - Overall improved - Also check for DPD polymorphism. (2) Gallbladder cancer: PLAN: - Follow-up in 2 weeks to start FOLFOX (3) Neutropenia associated with mucositis due to antineoplastic therapy: PLAN: - Resolved (4) Hypokalemia: PLAN: - Replace potassium IV this morning and continue oral potassium & magnesium replacement. (5) Hypomagnesemia: PLAN: Plan - Come to my office on Friday to repeat BMP & check for DPD polymorphism.
[2021-08-27] MEDS: Enoxaparin 40 MG/0.4 ML Syringe SC (09:30)
[2021-08-27] MEDS: Calcium Carb/Vitamin D 1 TABLET Tablet PO (09:30)
[2021-08-27] MEDS: TBO-FILGRASTIM 300 MCG/0.5 ML ML SC (09:33)
--- NOTE | 2021-08-27 09:50 | CASEMGMT ---
CARLOS ALBERTO CABEZAS Assessment: Face to Face with pt for initial transition planning/care coordination assessment. RN RAULITO introduced self and role at [facility], pt voices understanding and consents to assessment. Pt is A/O x4 and answers all questions appropriately at this time. Pt sitting up in bed with daughter Karissa at bedside. Care providers, pharmacy, and demographics verified/updated. Admitting Dx: neutropenia, chemo induced toxicity PCP:Maryana Specialists: maulik Stephens Pharmacy: [facility] [facility] [place]: yes LW/HPOA: Pt states she has a LW/DPOA. She is aware it is not on file at [facility] and she may bring in to be scanned into her chart. She states her DPOA is her Rick Ramon. LNOK: Rick Ramon, ; Thom and Velma, dtrs Living Arrangements: Pt lives in a two story house with 1 step to enter. Pt reports she is I in ADL's and denies concerns at home. Transportation: Pt drives self and denies concerns with transportation. DME/HHC/SNF: Pt has a cane and walker at home but does not use. Pt denies hx of HHC or SNF stays. Pt states no concerns with going home at time of dc. Pt dtr is requesting information on [employer]. Karissa is staying with patient for the next 3 weeks. She is home from [place] currently. Discussed the requirements for eligibility for HHC with patient and dtr. Pt states she does not qualify as she is not homebound but would like information on it. Provided pt and dtr with a list of HHC providers including quality and resource use data and consistent with the patient?s preferred geographic region, medical needs, and insurance network. Pt states no further concerns/needs. CM to follow. Advised pt to ask CM if any further question/concerns/needs arise, voices understanding. Pt Goal: Home Plan: Home
--- NOTE | 2021-08-27 10:10 | DCINST_ITS ---
Discharge Instructions Diet Discharge Diet: No restrictions Activity Discharge Activity: Return to Normal Activity Follow Up Care Test Results: Test results from this visit will be discussed in further detail at your follow- up appointment, if applicable. Discharge Plan Admission Admit Date/Time: 08/25/21 16:27 Primary Reason for Your Visit: Neutropenia/diarrhea Attending Provider: Jossy Tolbert Primary Care Provider: Unique Mijares Consulting Providers: Yuri Waite ; Geeta Wills ; Flakita Stephens ; Rashid Looney ; Tejinder Mckenzie ; John Maxwell Instructions Additional Instructions / Restrictions: Continue to keep yourself hydrated. Continue to take your magnesium and potassium. Follow-up with Dr. Stephens in the outpatient within 2 weeks. Follow-up with primary care doctor for repeat blood work to check on your potassium and magnesium within 1 week. Discharge Orders/Prescriptions Prescriptions: Continued calcium carbonate-vitamin D3 [Calcium 600 with Vitamin D3] 600 mg(1,500mg) - 500 unit capsule 1 cap PO DAILY clobetasol 0.05 % ointment 1 applic TOPICAL QODAY estradiol 0.01 % (0.1 mg/gram) cream 1 g vaginal QODAY acetaminophen 325 mg Tablet 650 mg PO Q6H PRN (Reason: Pain) prochlorperazine maleate [Compazine] 10 mg Tablet 10 mg PO Q6H PRN (Reason: Pain) potassium chloride 20 mEq Tablet,Er Particles/Crystals 20 meq PO BID magnesium chloride 71.5 mg Tablet,Delayed Release (Dr/Ec) 71.5 mg PO BID diphenoxylate-atropine [Lomotil] 2.5-0.025 mg Tablet 1 tab PO Q4H PRN (Reason: Diarrhea) Referrals / Follow Up: Unique Mijares MD [Primary Care Provider] - In 1 Week Flakita Stephens MD [STAFF PHYSICIAN] - Within 2 Weeks Disposition Disposition (needs filled in before D/C Order can be placed): Home, Self Care
[2021-08-27] MEDS: Potassium Chloride Oral Tablet 20 MEQ 40 MEQ PO (10:22)
[2021-08-27 10:45] VITALS: BP 98/70; PULSE 76; RESP 14; TEMP 36.3; O2SAT 96
[2021-08-27] MEDS: Alteplase 2 MG/2 ML Vial IV (11:59)
--- NOTE | 2021-08-27 12:08 | NURSING ---
Chest port with resistance while flushing. No blood return noted. MD made aware and cath flow ordered. food and nutrition supervisor here now to attempt to use cath flow.
[2021-08-27 13:32] LABS: Pathologist Review Reviewed
[2021-08-27 13:35] LABS: Pathologist Review Reviewed
--- NOTE | 2021-08-27 13:54 | DS.PCM_ITS ---
Providers Date of Admission: 08/25/21 Date of Discharge: 08/28/21 Primary Care Physician: Dr. Unique Mijares MD Consultations 08/25/21 17:16 Consult: Oncology/Hematology Routine Consulting Provider: [facility] Hem/Onc Jennifer Reason for Consult: Chemo induced toxicity, mucositis EMERGENT Consult: No MD Notified: Yes Date Notified: 08/25/21 Time Notified: 16:30 Method of Notification: ED Physician Initiated Reason For Visit: NEUTROPENIA, CHEMO INDUCED TOXICITY Diagnosis Discharge Diagnosis (1) Chemotherapy induced diarrhea: Status: Acute Code(s): K52.1 - Toxic gastroenteritis and colitis; T45.1X5A - Adverse effect of antineoplastic and immunosuppressive drugs, initial encounter (2) Gallbladder cancer: Status: Acute Code(s): C23 - Malignant neoplasm of gallbladder (3) Neutropenia associated with mucositis due to antineoplastic therapy: Status: Acute Code(s): D70.1 - Agranulocytosis secondary to cancer chemotherapy; K12.31 - Oral mucositis (ulcerative) due to antineoplastic therapy; T45.1X5S - Adverse effect of antineoplastic and immunosuppressive drugs, sequela (4) Hypokalemia: Status: Acute Code(s): E87.6 - Hypokalemia (5) Hypomagnesemia: Status: Acute Code(s): E83.42 - Hypomagnesemia Medications at Discharge Home Medications calcium carbonate 600 mg-vitamin D3 12.5 mcg (500 unit) capsule (Calcium 600 with Vitamin D3) 1 cap PO DAILY supplement 11/10/19 clobetasol 0.05 % topical ointment 1 applic topical QODAY 11/10/19 estradiol 1 g vaginal QODAY supplement 09/19/20 acetaminophen 325 mg tablet 650 mg PO Q6H PRN Pain 05/18/21 magnesium chloride 71.5 mg (magnesium chloride) tablet,delayed release 71.5 mg PO BID supplement 05/18/21 potassium chloride 20 mEq tablet,extended release(part/cryst) 20 meq PO BID supplement 05/18/21 prochlorperazine maleate 10 mg tablet (Compazine) 10 mg PO Q6H PRN Pain 05/18/21 diphenoxylate-atropine 2.5 mg-0.025 mg tablet (Lomotil) 1 tab PO Q4H PRN Diarrhea 08/25/21 Hospital Course Operations None Procedures None Summary of Care Provided Minutes Spent on Discharge: 35 Hospital Course: 71-year-old female with past medical history of stage IV gallbladder CA with mets to the liver, on chemotherapy who comes in with severe diarrhea ongoing for 2 weeks. Patient started having diarrhea after her chemotherapy. She has been hydrating herself and taking Pedialyte. She admits to multiple watery large- volume diarrhea. This is nonbloody. Denied any abdominal discomfort or cramps. She received IV fluids a day prior to admission. She however was symptomatic and felt dizzy whenever she had to walk. She was admitted to the hospital, started on IV octreotide and loperamide. Stool for C. difficile and enteric panel was negative. Patient had electrolyte imbalances that were replaced. Patient continued to feel improved. Diarrhea was resolved at discharge. She will follow-up with oncology in the outpatient as well as with her primary care doctor. She knows that she needs repeat blood work within a week to check on her electrolytes. Physical Exam Narrative Physical exam: General: Alert, oriented x3, cooperative, no apparent distress, cachetic HEENT: Atraumatic Oral: Dry oral mucosa Neck: Supple Lungs: Diminished to auscultation Cardiovascular: HS I+II, regular, no murmurs Abdomen: Bowel Sounds Present, Soft, Non Tender Extremities: No edema Medical Records Data Medical Nutrition Assessment Dietitian: Malnutrition Criteria Met Start: 08/26/21 16:07 Freq: Status: Active Protocol: Document 08/26/21 16:43 RMA (Rec: 08/26/21 16:43 RMA [id number]) Nutrition Malnutrition Evidence of Malnutrition Exists Yes Malnutrition (severe): Chronic Evidenced By Suboptimal Energy Intake ( Severe),Weight Loss (Severe), Physical Changes (Severe) Clinical Problem Chronic Disease or Condition Related Malnutrition Etiology Severe protein-calorie malnutrition in the context of chronic disease related to altered GI function, catabolic disease, increased energy expenditure and inadequate oral/energy intake Signs/Symptoms as evidenced by 9% wt loss x 2 -3 months, BMI 18.1, PO meeting less than 50% estimated nutrition needs x past 2-3 months, severe muscle /fat wasting evident throughout including face, clavicle, neck, arms and legs, N/V/D Status Active Problem Recommendation Dietitian Recommendations/Changes Regular diet as tolerated. Will d/c ensure enlive with medpass--pt dislikes and refusing. Pt will take home ONS as tolerated. Encouraged to contact RD as needed regarding diet/ nutrition. May need to consider nutrition support if weight and oral intake continue to decline. Weight / BMI Weight Weight: 45.4 kg Body Mass Index (BMI) 18.1 ABG / Lab / Microbiology Data Result Diagrams: 08/28/21 04:42 08/28/21 04:42 Laboratory: Laboratory Results - last 24 hr 08/25/21 15:00: Diff Path Review Reviewed 08/27/21 03:14: WBC 4.0 L, RBC 3.18 L, Hgb 9.7 L, Hct 29.2 L, MCV 91.8, MCH 30.5, MCHC 33.2, RDW Std Deviation 64.9 H, RDW Coeff of [place]old[place] 19.4 H, Plt Count 145 L, MPV 9.4, Neut % (Auto) Not Reportable, Absolute Neuts (auto) 2.9, Absolute Lymphs (auto) 0.55 L, Total Counted 100, Neutrophils % (Manual) 52, Band Neutrophils % 18 H, Lymphocytes % (Manual) 14 L, Monocytes % (Manual) 12 H, Eosinophils % (Manual) 2, Metamyelocytes % 2 H, Diff Path Review Reviewed, Platelet Estimate ADEQUATE, Anisocytosis 2+, Microcytosis 1+, Macrocytosis 1+, Ovalocytes 1+ 08/27/21 03:14: Sodium 137, Potassium 2.8 L, Chloride 103, Carbon Dioxide 26.0, Anion Gap 8, BUN 5 L, Creatinine 0.48 L, Estim Creat Clear Calc 41.49, Est GFR (MDRD) Af Amer 165, Est GFR (MDRD) Non-Af 136, BUN/Creatinine Ratio 10.4, Glucose 84, Calcium 8.4 L, Magnesium 1.8, Total Bilirubin 0.50, AST 29, ALT 84 H , Alkaline Phosphatase 247 H, Total Protein 5.6 L, Albumin 2.4 L, Globulin 3.2, Albumin/Globulin Ratio 0.8 L Microbiology: Microbiology 08/25/21 04:28 Stool Stool Lactoferrin - Final 08/25/21 04:28 Stool Enteric Bacteriology - Final 08/25/21 04:28 Stool C. difficile DNA Amplification - Final 08/25/21 20:04 Nasal Secretion SARS-CoV-2 & FLU Antigen (Rapid) - Final 08/25/21 19:50 Urine, Clean Catch Streptococcus pneumoniae Antigen (M - Final 08/25/21 19:50 Urine, Clean Catch Legionella Antigen - Final D/C Instructions Discharge Diet: No restrictions Meaningful Use Info Meaningful Use Diagnoses (Choose all that apply): None applicable Discharge Plan Admission Admit Date/Time: 08/25/21 16:27 Primary Reason for Your Visit: Neutropenia/diarrhea Attending Provider: Jossy Tolbert Primary Care Provider: Unique Mijares Consulting Providers: Yuri Waite ; Geeta Wills ; Flakita Stephens ; Rashid Looney ; Tejinder Mckenzie ; John Maxwell Instructions Additional Instructions / Restrictions: Continue to keep yourself hydrated. Continue to take your magnesium and po tassium. Follow-up with Dr. Stephens in the outpatient within 2 weeks. Follow-up with primary care doctor for repeat blood work to check on your potassium and magnesium within 1 week. Discharge Orders/Prescriptions Prescriptions: Continued calcium carbonate-vitamin D3 [Calcium 600 with Vitamin D3] 600 mg(1,500mg) - 500 unit capsule 1 cap PO DAILY clobetasol 0.05 % ointment 1 applic TOPICAL QODAY estradiol 0.01 % (0.1 mg/gram) cream 1 g vaginal QODAY acetaminophen 325 mg Tablet 650 mg PO Q6H PRN (Reason: Pain) prochlorperazine maleate [Compazine] 10 mg Tablet 10 mg PO Q6H PRN (Reason: Pain) potassium chloride 20 mEq Tablet,Er Particles/Crystals 20 meq PO BID magnesium chloride 71.5 mg Tablet,Delayed Release (Dr/Ec) 71.5 mg PO BID diphenoxylate-atropine [Lomotil] 2.5-0.025 mg Tablet 1 tab PO Q4H PRN (Reason: Diarrhea) Referrals / Follow Up: Unique Mijares MD [Primary Care Provider] - 09/14/21 1:20 pm Flakita Stephens MD [STAFF PHYSICIAN] - 09/07/21 11:00 am (10:30 labs) Disposition Disposition (needs filled in before D/C Order can be placed): Home, Self Care Charges/Coding Visit Charges Inpatient E&M: 24572 Disch Hosp
[2021-08-27] MEDS: Potassium Chloride 10mEq/100mL 10 MEQ/100 ML IV.SOLN. 100 MEQ IV BOLUS ×4 (14:08→18:22)
[2021-08-27 16:39] VITALS: BP 109/56; PULSE 72; RESP 16; TEMP 36.6; O2SAT 97
[2021-08-27 21:28] VITALS: BP 108/63; PULSE 70; RESP 16; TEMP 37.4; O2SAT 96
[2021-08-27 22:40] LABS: ALB/GLOB Ratio 0.8 RATIO (0.9-2.4); AST(SGOT) 16 U/L (15-37); Alanine Aminotransfer ALT/SGPT 64 U/L (13-56); Albumin, Serum 2.4 g/dL (3.2-5.0); Alkaline Phosphatase 223 U/L (45-117); Anion Gap 5 (5-15); BUN 7 mg/dL (7-18); BUN/Creat Ratio 9.8 RATIO (10-20); Calcium,Total 8.5 mg/dL (8.5-10.1); Chloride 100 mmol/L (98-107); Creatinine, Serum 0.72 mg/dL (0.55-1.02); EST Glomerular Filtration Rate 86 mL/min (>60); Est Glom Filt Rate - Afr Amer 104 mL/min (>60); Estimated Creatinine Clearance 38.05 ml/min; Globulin 3.2 g/dL (2.2-4.2); Glucose 106 mg/dL (74-106); Potassium 3.7 mmol/L (3.5-5.1); Protein, Total 5.6 g/dL (6.4-8.2); Sodium Level 135 mmol/L (136-145)
[2021-08-28 06:12] LABS: Absolute Lymphocyte Count 0.41 X10^3/uL (0.83-4.51); Basophil# 0.02 X10^3/uL; Basophil% 0.2 % (0-1); Eosinophils% 1.2 % (0-5); Hematocrit 28.3 % (37-47); Hemoglobin 9.5 g/dL (12.0-15.0); Lymphocyte # 0.41 X10^3/ul (0.83-4.51); Mean Corp Hgb Conc 33.6 g/dL (32-36); Mean Corpuscular Volume 92.5 fL (81-99); Mean Platelet Vol. 9.7 fl (6.2-12.0); Monocyte# 1.28 X10^3/uL; Monocyte% 15.5 % (0-10); NRBC Flagged by Analyzer 0.2 % (0-5); Neutrophil # 6.04 X10^3/uL (2.7-7.7); Neutrophil % 73.3 % (47-70); POSITIVE DIFFERENTIAL YES; POSITIVE MORPHOLOGY YES; Platelet Count 154 K/mm3 (150-450); RBC Distribution Width CV 20.1 % (11.6-14.6); RBC Distribution Width SD 67.6 fl (35.1-43.9); Red Blood Count 3.06 M/mm3 (4.2-5.4); White Blood Count 8.3 K/mm3 (4.4-11.0)
[2021-08-28 06:21] LABS: Differential Indicated SCAN CRITERIA MET
[2021-08-28 06:30] LABS: Anisocytosis 1+; Hypochromasia RARE
[2021-08-28 06:39] LABS: ALB/GLOB Ratio 0.8 RATIO (0.9-2.4); AST(SGOT) 17 U/L (15-37); Alanine Aminotransfer ALT/SGPT 58 U/L (13-56); Albumin, Serum 2.4 g/dL (3.2-5.0); Alkaline Phosphatase 225 U/L (45-117); Anion Gap 6 (5-15); BUN 5 mg/dL (7-18); BUN/Creat Ratio 10.1 RATIO (10-20); Calcium,Total 8.7 mg/dL (8.5-10.1); Chloride 101 mmol/L (98-107); EST Glomerular Filtration Rate 131 mL/min (>60); Est Glom Filt Rate - Afr Amer 158 mL/min (>60); Estimated Creatinine Clearance 38.05 ml/min; Glucose 88 mg/dL (74-106); Magnesium 1.8 mg/dL (1.6-2.6); Potassium 3.5 mmol/L (3.5-5.1); Protein, Total 5.4 g/dL (6.4-8.2); Sodium Level 135 mmol/L (136-145)
[2021-08-28 06:40] LABS: Differential Comment SCANNED
[2021-08-28] MEDS: Diphenoxylate/Atrop 1 Tablet PO (06:58)
--- NOTE | 2021-08-28 07:40 | PCM.PN.HOSP ---
Subjective Subjective Late entry note: Patient was actually seen on 08/27/21 at 9am and was supposed to be discharged on 08/27/21 but was yet to finish her IV electrolytes. Patient was seen and examined. She complained of feeling slightly weak. Her diarrhea was resolving, stools appear taken. Her potassium was 2.8, magnesium was 1.8. Objective Data Objective Data Vital Signs: Vital Signs Temp Pulse Resp BP Pulse Ox 99.3 F H 70 16 108/63 96 08/27/21 21:28 08/27/21 21:28 08/27/21 21:28 08/27/21 21:28 08/27/21 21:28 Oxygen Delivery Method Room Air Weight: 45.4 kg Body Mass Index (BMI) 18.1 Intake & Output: Intake and Output for Last 24 Hours 08/26/21 08/27/21 08/28/21 23:59 23:59 23:59 Intake Total 1875 / 1875 2964 / 2964 Balance 1875 / 1875 2964 / 2964 Medical Nutrition Assessment Dietitian: Malnutrition Criteria Met Start: 08/26/21 16:07 Freq: Status: Active Protocol: Document 08/26/21 16:43 RMA (Rec: 08/26/21 16:43 RMA [id number]) Nutrition Malnutrition Evidence of Malnutrition Exists Yes Malnutrition (severe): Chronic Evidenced By Suboptimal Energy Intake ( Severe),Weight Loss (Severe), Physical Changes (Severe) Clinical Problem Chronic Disease or Condition Related Malnutrition Etiology Severe protein-calorie malnutrition in the context of chronic disease related to altered GI function, catabolic disease, increased energy expenditure and inadequate oral/energy intake Signs/Symptoms as evidenced by 9% wt loss x 2 -3 months, BMI 18.1, PO meeting less than 50% estimated nutrition needs x past 2-3 months, severe muscle /fat wasting evident throughout including face, clavicle, neck, arms and legs, N/V/D Status Active Problem Recommendation Dietitian Recommendations/Changes Regular diet as tolerated. Will d/c ensure enlive with medpass--pt dislikes and refusing. Pt will take home ONS as tolerated. Encouraged to contact RD as needed regarding diet/ nutrition. May need to consider nutrition support if weight and oral intake continue to decline. Lab / Micro Data Result Diagrams: 08/28/21 04:42 08/28/21 04:42 Labs: Laboratory Results - last 24 hr 08/25/21 15:00: Diff Path Review Reviewed 08/27/21 03:14: Diff Path Review Reviewed 08/27/21 22:05: Sodium 135 L, Potassium 3.7, Chloride 100, Carbon Dioxide 30.0, Anion Gap 5, BUN 7, Creatinine 0.72, Estim Creat Clear Calc 38.05, Est GFR (MDRD) Af Amer 104, Est GFR (MDRD) Non-Af 86, BUN/Creatinine Ratio 9.8 L, Glucose 106, Calcium 8.5, Total Bilirubin 0.30, AST 16, ALT 64 H, Alkaline Phosphatase 223 H, Total Protein 5.6 L, Albumin 2.4 L, Globulin 3.2, Albumin/Globulin Ratio 0.8 L 08/28/21 04:42: WBC 8.3, RBC 3.06 L, Hgb 9.5 L, Hct 28.3 L, MCV 92.5, MCH 31.0, MCHC 33.6, RDW Std Deviation 67.6 H, RDW Coeff of [place] 20.1 H, Plt Count 154, MPV 9.7, Immature Gran % (Auto) 4.800 H, Neut % (Auto) 73.3 H, Lymph % (Auto) 5.0 L, [place] % (Auto) 15.5 H, Eos % (Auto) 1.2, Baso % (Auto) 0.2, Absolute Neuts (auto) 6.0, Absolute Lymphs (auto) 0.41 L, Nucleated RBC % 0.2, Differential Comment SCANNED, Hypochromasia RARE, Anisocytosis 1+ 08/28/21 04:42: Sodium 135 L, Potassium 3.5, Chloride 101, Carbon Dioxide 28.0, Anion Gap 6, BUN 5 L, Creatinine 0.50 L, Estim Creat Clear Calc 38.05, Est GFR (MDRD) Af Amer 158, Est GFR (MDRD) Non-Af 131, BUN/Creatinine Ratio 10.1, Glucose 88, Calcium 8.7, Magnesium 1.8, Total Bilirubin 0.40, AST 17, ALT 58 H, Alkaline Phosphatase 225 H, Total Protein 5.4 L, Albumin 2.4 L, Globulin 3.0, Albumin/Globulin Ratio 0.8 L Micro: Microbiology 08/25/21 17:20 Blood Culture (Wb) - Right Wrist Blood Culture - Preliminary No growth in 48 hours. 08/25/21 17:10 Blood Culture (Wb) - Other Blood Culture - Preliminary No growth in 48 hours. 08/25/21 04:28 Stool Stool Lactoferrin - Final 08/25/21 04:28 Stool Enteric Bacteriology - Final 08/25/21 04:28 Stool C. difficile DNA Amplification - Final 08/25/21 20:04 Nasal Secretion SARS-CoV-2 & FLU Antigen (Rapid) - Final 08/25/21 19:50 Urine, Clean Catch Streptococcus pneumoniae Antigen (M - Final 08/25/21 19:50 Urine, Clean Catch Legionella Antigen - Final Physical Exam Narrative Physical exam: General: Alert, Oriented x3, Cooperative, No apparent distress, cachetic HEENT: Atraumatic Oral: Dry oral mucosa Neck: Supple Lungs: Diminished to auscultation Cardiovascular: HS I+II, regular, no murmurs Abdomen: Bowel Sounds Present, Soft, Non Tender Extremities: No edema Assessment & Plan Assessment/Plan (1) Chemotherapy induced diarrhea: (2) Gallbladder cancer: (3) Neutropenia associated with mucositis due to antineoplastic therapy: (4) Hypokalemia: (5) Hypomagnesemia: PLAN: Plan 1. Diarrhea, acute, likely secondary to chemotherapy-induced mucositis, improving Off octreotide, stool studies are negative. Continue with conservative, supportive treatment 2. Hypokalemia/hypomagnesemia secondary to #1, replaced, recheck in a.m. 3. Pancytopenia, chemotherapy-induced, improving, Off Granix, WBC 4.0 4. 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 Severe protein calorie malnutrition, BMI 16.3, biscuit factory worker consulted, continue on supplements 6. DVT prophylaxis with Lovenox subcu Charges/Coding Visit Charges Inpatient E&M: 14910 Subs Hosp L2
[2021-08-28 08:24] VITALS: BP 104/61; PULSE 75; RESP 18; TEMP 37.1; O2SAT 95
[2021-08-28] MEDS: Enoxaparin 40 MG/0.4 ML Syringe SC (08:34)
[2021-08-28] MEDS: Calcium Carb/Vitamin D 1 TABLET Tablet PO (08:34)
[2021-08-28] MEDS: Magnesium Chloride 64 MG Delay Rel.Tablet 128 MG PO (09:50)
[2021-08-28] MEDS: Potassium Chloride Oral Tablet 20 MEQ 40 MEQ PO (09:50)
[2021-08-28] MEDS: 0.9% Saline Lock 10 ML Syringe IV (10:34)
== END 2021-08-28 10:46 | disposition home or self-care (01) | DRG 393 ==
LOC: ED 16:36 → MS3 17:34
PROVIDERS: Internal Medicine Hematology & Oncology; Admitting Provider Internal Medicine; Emergency Provider Student in an Organized Health Care Education/Training Program; PCP Internal Medicine; Visit Provider Internal Medicine
DX: K52.1 Toxic gastroenteritis and colitis (principal); E43 Unspecified severe protein-calorie malnutrition; D61.810 Antineoplastic chemotherapy induced pancytopenia; E87.1 Hypo-osmolality and hyponatremia; C23 Malignant neoplasm of gallbladder; C78.7 Secondary malignant neoplasm of liver and intrahepatic bile duct; Z68.1 Body mass index [BMI] 19.9 or less, adult; D70.1 Agranulocytosis secondary to cancer chemotherapy; E86.0 Dehydration; E83.42 Hypomagnesemia; E87.6 Hypokalemia; K12.31 Oral mucositis (ulcerative) due to antineoplastic therapy; E86.1 Hypovolemia; L90.0 Lichen sclerosus et atrophicus; J30.2 Other seasonal allergic rhinitis; N95.2 Postmenopausal atrophic vaginitis; T45.1X5A Adverse effect of antineoplastic and immunosuppressive drugs, initial encounter; Z79.899 Other long term (current) drug therapy; Z87.891 Personal history of nicotine dependence
CPT/HCPCS: 36415; 36591; 71046; 80053; 83630; 83690; 83735; 84100; 85025; 87040; 87177; 87209; 87428; 87449; 87493; 87506; 87641; 97802; 99251; 99285; J2997; J7030; J7040; A4216; G0463; J1447; J2354; J3490

== ENCOUNTER → 2021-10-29 | Outpatient (CLI) | payer MEDICARE, OTHER, SELFPAY | END | disposition home or self-care (01) | LOC: LABSPEC 12:31 | PROVIDERS: PCP Internal Medicine; Referring Provider Internal Medicine Hematology & Oncology; Visit Provider Internal Medicine Hematology & Oncology | DX: C23 Malignant neoplasm of gallbladder (principal); D64.81 Anemia due to antineoplastic chemotherapy; Z92.21 Personal history of antineoplastic chemotherapy | CPT/HCPCS: 86850; 86900; 86901; 86920; 86922 ==

== ENCOUNTER → 2021-10-31 | Outpatient (CLI) | payer MEDICARE, OTHER, SELFPAY ==
[2021-10-31] MEDS: 0.9 % NaCl (Sterile) Posiflush 10 mL IV (11:01)
[2021-10-31 11:09] VITALS: BP 142/59; PULSE 77; RESP 16; TEMP 36.7; O2SAT 97; BMI 18.6
[2021-10-31 11:49] VITALS: BP 131/70; PULSE 107; RESP 16; TEMP 36.9; O2SAT 98
[2021-10-31 12:49] VITALS: BP 128/59; PULSE 78; RESP 16; TEMP 36.7
[2021-10-31 13:51] VITALS: BP 145/71; PULSE 75; TEMP 36.3; O2SAT 97
[2021-10-31] MEDS: 0.9% NaCl VAD Flush IV (13:52)
== END | disposition home or self-care (01) ==
LOC: MEDOUTP 10:44
PROVIDERS: PCP Internal Medicine; Referring Provider Internal Medicine Hematology & Oncology; Visit Provider Internal Medicine Hematology & Oncology
DX: C23 Malignant neoplasm of gallbladder (principal); D64.81 Anemia due to antineoplastic chemotherapy
CPT/HCPCS: 36430; 86850; 86900; 86901; 86920; 86922; J7040; P9040; A4216

== ENCOUNTER → 2021-11-20 | Outpatient (CLI) | payer MEDICARE, OTHER, SELFPAY ==
[2021-11-20 11:51] VITALS: BP 134/73; PULSE 83; RESP 16; TEMP 35.7; O2SAT 99; BMI 18.4
[2021-11-20 12:18] VITALS: BP 134/74; PULSE 87; RESP 16; TEMP 36.2; O2SAT 99
[2021-11-20 13:18] VITALS: BP 124/83; PULSE 83; RESP 16; TEMP 35.8; O2SAT 99
[2021-11-20 14:05] VITALS: BP 127/82; PULSE 81; RESP 14; O2SAT 97
== END | disposition home or self-care (01) ==
LOC: MEDOUTP 11:22
PROVIDERS: PCP Internal Medicine; Referring Provider Internal Medicine Hematology & Oncology; Visit Provider Internal Medicine Hematology & Oncology
DX: D64.81 Anemia due to antineoplastic chemotherapy (principal)
CPT/HCPCS: 36430; 86850; 86900; 86901; 86920; 86922; J7040; P9016; A4216

== ENCOUNTER 2021-11-30 10:19 | Emergency (ER) | payer MEDICARE, OTHER, SELFPAY ==
[2021-11-30 10:20] VITALS: BP 149/91; PULSE 90; RESP 16; TEMP 36.2; O2SAT 99; BMI 18.1
[2021-11-30] MEDS: Potassium Chloride Oral Soln 20 MEQ/15 ML UDC 40 MEQ PO (11:40)
--- NOTE | 2021-11-30 12:05 | EX.ED.DYSGE1 ---
HPI History of Present Illness Chief Complaint: Weakness Detail of Chief Complaint: Symptomatic anemia Informant: patient and other (Oncologist) Onset/Context/Timing Onset: Today Context: Sudden Onset Timing: Intermittent and Waxes and wanes Quality: Dyspnea on exertion and fatigue Location: Generalized Current Severity: Gone Maximum Severity: Moderate Worsened by: Activity Relieved by: Rest Associated Symptoms Associated Symptoms: Not feeling well Narrative Narrative: Patient is a 71-year-old woman who had intra-abdominal surgery beginning of 2020 due to ruptured viscus. She subsequently was diagnosed with carcinoma of the gallbladder and has undergone chemotherapy directed by Dr. Tejinder Mckenzie. She was sent in because of a hemoglobin 7.1 and patient is symptomatic. Patient's had problems with hypokalemia. Labs from the clinic that were obtained today were faxed to our facility. Glucose is elevated 300. Sodium is 129 which is baseline for patient. Potassium is 3.3 was 3.6. Chloride is 94. Hemoglobin is 7.1. Patient denies fever, chills night sweats. Denies headache, visual, ocular auditory symptoms her. She denies trouble with speech or swallowing. She denies chest pressure or tightness. She does report dyspnea on exertion. Denies orthopnea or PND. She denies bleeding of her gums. She denies hematuria. She denies black or maroon-colored stool. She denies bruising easily. Prior similar symptoms: Yes (Patient has required transfusing to prior times.) Recent Illness/Hospitalization: No [facility] Medical History Anemia Gallbladder cancer Migraines Rupture of small intestine Seasonal allergies Vaginal atrophy Home Medications calcium carbonate 600 mg-vitamin D3 12.5 mcg (500 unit) capsule (Calcium 600 with Vitamin D3) 1 cap PO DAILY supplement 11/10/19 [History Last Taken Unknown] clobetasol 0.05 % topical ointment 1 applic topical QODAY 11/10/19 [History Last Taken Unknown] estradiol 0.01% (0.1 mg/gram) vaginal cream 1 g vaginal QODAY supplement 09/19/20 [History Last Taken Unknown] acetaminophen 325 mg tablet 650 mg PO Q6H PRN Pain 05/18/21 [History Last Taken Unknown] magnesium chloride 71.5 mg (magnesium chloride) tablet,delayed release 71.5 mg PO BID supplement 05/18/21 [History Last Taken Unknown] potassium chloride 20 mEq tablet,extended release(part/cryst) 20 meq PO BID supplement 05/18/21 [History Last Taken Unknown] prochlorperazine maleate 10 mg tablet (Compazine) 10 mg PO Q6H PRN Nausea 05/18/21 [History Last Taken Unknown] diphenoxylate-atropine 2.5 mg-0.025 mg tablet (Lomotil) 1 tab PO Q4H PRN Diarrhea 08/25/21 [History Last Taken Unknown] metformin 500 mg tablet,extended release 24 hr 500 mg PO DAILY #30 tabs 11/30/21 [Rx Last Taken Unknown] potassium chloride 20 mEq/15 mL oral liquid 20 meq (15 mL) PO TID #450 mL 11/30/21 [Rx Last Taken Unknown] Allergy/AdvReac Type Severity Reaction Status Date / Time erythromycin base Allergy Mild upset Verified 11/30/21 10:23 stomach Sulfa (Sulfonamide Allergy Mild dizziness, Verified 11/30/21 10:23 Antibiotics) nausea, sweaty diphenhydramine AdvReac Other Verified 11/30/21 10:23 [From Benadryl] Family History Brother Prostate cancer Drug abuse Alcohol abuse Surgical History Bartholin cyst S/P ectopic Social History (Updated 11/30/21 @ 12:[address] Michi Torres MD) household members: spouse Smoking Status: Former smoker alcohol intake: never substance use type: does not use caffeine: No what type of physical activity do you participate in: walking, yoga and other details: ti kaye for balance frequency: daily seatbelt use: always do you feel safe at home: Yes additional social history: -[place] Patient works at [employer] ROS ED Constitutional Constitutional ED: Reports weight loss; Denies chills, fever(s), subjective or sweats Eyes Eyes: Denies blurry vision, change in vision or diplopia ENT ENT ED: Denies ear pain, rhinorrhea or sore throat Cardiovascular Cardiovascular: Denies chest pain, orthopnea, palpitations or paroxysmal nocturnal dyspnea Respiratory/Chest Respiratory/Chest: Reports dyspnea on exertion; Denies cough, dyspnea, orthopnea or paroxysmal nocturnal dyspnea Gastrointestinal Gastrointestinal: Denies abdominal pain, constipation, melena or vomiting Genitourinary Genitourinary ED: Denies dysuria, hematuria or urinary frequency Musculoskeletal Musculoskeletal: Denies arthralgias, back pain, myalgias or neck pain Neurologic Neurologic: Reports weakness; Denies headache(s) or paresthesias Endocrine Endocrinology: Denies cold intolerance or heat intolerance Hematologic/Lymphatic Hematologic/Lymphatic: Reports systems reviewed and no addt'l complaints, except as documented and anemia; Denies easy bleeding or easy bruising EXAM Physical Exam Const Vital Signs: 11/30/21 10:20 11/30/21 10:32 11/30/21 12:51 Temperature 97.1 F L 98.5 F Temperature Source Temporal Temporal Pulse Rate 90 94 Respiratory Rate 16 18 Respiratory Effort Normal Non-Labored Respiratory Pattern Normal Blood Pressure 149/91 H 141/77 H Blood Pressure Mean 110 98 Blood Pressure Source Monitor Blood Pressure Position Semi-Fowlers Blood Pressure Location Right Arm Pulse Ox 99 99 Oxygen Delivery Method Room Air Room Air 11/30/21 12:54 11/30/21 13:06 Temperature 98.4 F Temperature Source Temporal Pulse Rate 94 94 Respiratory Rate 16 Respiratory Effort Respiratory Pattern Blood Pressure 141/77 H 141/85 H Blood Pressure Mean 98 103 Blood Pressure Source Monitor Blood Pressure Position Semi-Fowlers Blood Pressure Location Right Arm Pulse Ox 99 Oxygen Delivery Method Room Air Positive well nourished and well developed General Appearance ED: well developed, NAD and pallor; Negative for cyanotic or diaphoretic HEENT Reports moist mucous membranes HEENT Narrative: Atraumatic normocephalic. Ears normal. Nares patent. Uvula midline. No deviation tongue or protrusion. Eyes PERRL and EOMs intact bilaterally General Eye ED: Yes pale conjunctiva; Negative for scleral icterus Neck no lymphadenopathy, supple and no JVD Chest Wall inspection of chest normal and palpation of chest normal Chest Narrative: Patient has med port noted left subclavian region. Resp normal respiratory effort and clear to auscultation bilaterally Auscultation: Negative for rales, rhonchi, wheezes or diminished lung sounds Cardio regular rate, regular rhythm, S1 normal heart sound, S2 normal heart sound and no murmurs GI normal to inspection, nondistended, normoactive bowel sounds, non-tender, non-distended and no masses; Negative for hepatosplenomegaly Back/Spine no CVA tenderness Neuro oriented x3, CN's II-XII intact bilaterally and no sensory deficits noted Sensorium / Orientation: alert Psych mental status grossly normal Skin no rashes or lesions noted, no wounds and No skin turgor normal General Skin Exam: pallor; Negative for jaundice MDM MDM MDM Narrative Medical decision making narrative: Patient with symptomatic anemia. She will receive 1 unit of blood. She did receive p.o. potassium for hypokalemia. Will review her present dose and administer liquid since she probably is not getting good absorption since the tablet she was prescribed is as a wax matrix tablet. Patient is taking 60 mEq of potassium a day. Will convert to liquid and decrease since it is my opinion that patient not absorbing because the potassium is in wax matrix tablet Patient's oncologist Dr. Mckenzie did call him. He was informed of change in potassium formulation. Dr. Mckenzie did call in. He informed that her blood sugar was high. She is had blood sugars greater than 200s today's is 300. We will start on metformin. Furthermore, will refer to primary regarding diabetic education and treatment. Lab Data Labs: Laboratory Results - last 24 hr 11/30/21 11:05 Blood Type O POSITIVE Antibody Screen NEGATIVE Crossmatch See Detail Discharge Plan Triage Chief Complaint: Weakness ED Provider: Michi Torres Dx/Rx/DC Orders Clinical Impression: Symptomatic anemia, Signs and symptoms of anemia, Transfusion of blood during current hospitalization, Acute hypokalemia, New onset type 2 diabetes mellitus Instructions: When You Need a Blood ..., ED Hypokalemia, ED Hyperglycemia New Susp Diabetes Prescriptions: New potassium chloride 20 mEq/15 mL liquid 20 meq PO TID Qty: 450 0RF metformin 500 mg tablet extended release 24 hr 500 mg PO DAILY Qty: 30 0RF No Action calcium carbonate-vitamin D3 [Calcium 600 with Vitamin D3] 600 mg(1,500mg) -500 unit capsule 1 cap PO DAILY clobetasol 0.05 % ointment 1 applic TOPICAL QODAY estradiol 0.01 % (0.1 mg/gram) cream 1 g vaginal QODAY acetaminophen 325 mg Tablet 650 mg PO Q6H PRN (Reason: Pain) prochlorperazine maleate [Compazine] 10 mg Tablet 10 mg PO Q6H PRN (Reason: Nausea) potassium chloride 20 mEq Tablet,Er Particles/Crystals 20 meq PO BID magnesium chloride 71.5 mg Tablet,Delayed Release (Dr/Ec) 71.5 mg PO BID diphenoxylate-atropine [Lomotil] 2.5-0.025 mg Tablet 1 tab PO Q4H PRN (Reason: Diarrhea) Primary Care Provider: Unique Mijares Referrals: Unique Mijares MD [Primary Care Provider] - 5-7 Days Tejinder Mckenzie DO [Med Staff - Active Staff] - Keep Kerri appointment Activity Restrictions/Additional Instructions: Discontinue taking the potassium chloride tablets. Your blood sugar is high and you have new onset diabetes. He was started on metformin. You will need to follow-up with Dr. Mijares to regarding diabetic education and follow-up care. Disposition Disposition: Home, Self Care
[2021-11-30 12:51] VITALS: BP 141/77; PULSE 94; RESP 18; TEMP 36.9; O2SAT 99
[2021-11-30 12:54] VITALS: BP 141/77; PULSE 94
[2021-11-30 13:06] VITALS: BP 141/85; PULSE 94; RESP 16; TEMP 36.9; O2SAT 99
[2021-11-30 14:06] VITALS: BP 153/74; PULSE 87; RESP 16; TEMP 37.3; O2SAT 100
== END 2021-11-30 14:39 | disposition home or self-care (01) ==
PROVIDERS: Emergency Provider Emergency Medicine; PCP Internal Medicine; Visit Provider Emergency Medicine
DX: E11.65 Type 2 diabetes mellitus with hyperglycemia (principal); C23 Malignant neoplasm of gallbladder; D64.9 Anemia, unspecified; R53.1 Weakness; E87.6 Hypokalemia; R06.09 Other forms of dyspnea; Z87.891 Personal history of nicotine dependence; Z92.21 Personal history of antineoplastic chemotherapy
CPT/HCPCS: 36430; 36591; 86850; 86900; 86901; 86920; 86922; 99284; J7040; P9016; A4216

== ENCOUNTER 2021-12-06 04:19 | Emergency (ER) | payer MEDICARE, OTHER, SELFPAY ==
[2021-12-06 04:20] VITALS: BP 178/72; PULSE 92; RESP 16; TEMP 36.2; O2SAT 99; BMI 18.1
--- NOTE | 2021-12-06 04:37 | CT_ITS ---
EXAM: CT HEAD WITHOUT INTRAVENOUS CONTRAST CLINICAL INDICATION: headache headache TECHNIQUE: Multiple axial images were obtained of the head without intravenous contrast. This CT exam was performed using one or more of the following dose reduction techniques: automated exposure control, adjustment of the mA and/or kV according to patient size, and/or use of iterative reconstruction technique. This report was created using [employer] report generation technology. RADIATION DOSE: CTDIvol = 44.99 mGy, DLP = 779.24 mGy-cm COMPARISON: None. FINDINGS: BRAIN AND EXTRA-AXIAL SPACES: There is cerebral atrophy, greatest in the frontal regions. There is mild cerebellar atrophy. No intra- or extra-axial hemorrhage. No evidence of acute infarct. No intracranial mass or mass effect. There is preservation of the mullins/white matter interface. No hydrocephalus. Basal cisterns are patent. BONES/JOINTS: Unremarkable. No discrete lytic or blastic abnormalities. VASCULATURE: There is atherosclerotic calcification of the cavernous carotid arteries. SINUSES: Unremarkable as visualized. Clear. MASTOID AIR CELLS: Unremarkable. Clear. ORBITS: Visualized globes, extraocular muscles, optic nerves and retrobulbar fat appear unremarkable. CT/Brain/Head without Contrast IMPRESSION: 1. Chronic involutional changes of the brain. 2. No demonstrated acute intracranial process. Electronically Signed: Leroy Page MD at 5:06 EDT Reading Location ID and State: [facility] / [place] , Service support ,
--- NOTE | 2021-12-06 04:38 | EX.ED.VIS.HA ---
HPI History of Present Illness Chief Complaint: Headache Informant: patient and spouse/S.O. Onset/Context/Timing Onset: Hours (2) Context: Sudden, Onset and Activity (Sleeping. Headache woke her up.) Timing: Continuous Quality -Headache: Positive for Similar Prior Headaches (But much worse severity and no aura), Sharp and Throbbing Location: Upper mid occiput, radiating to bilateral retro-orbital Current Severity: Severe Maximum Severity: Severe Worsened by: Light Relieved by: Nothing, took ibuprofen and Compazine prior to arrival Associated Symptoms/Injury Associated Symptoms: Positive for Nausea and Photophobia; Negative for Vomiting, Numbness, Tingling, Preceding Aura, Visual Changes, Blurred Vision or Visual Loss Injury - MALCOLM: Negative for Direct Trauma or Fall Narrative Narrative: Patient woke up with a severe headache at 2 AM. This is not happened before. She does have a history of migraines, states that the quality of the headache and the location is similar to prior migraines however much more severe, which is why she started by taking ibuprofen and later Compazine for her nausea while at home. They did not help so she came to the emergency department. Her blood pressure is elevated here, usually is in the 120-130 range systolic. She has been compliant with her medications. She is currently being treated with chemotherapy at the [facility] infusion center for gallbladder cancer. states she has been having increased frequency of migraines since she has been on the chemotherapy. She usually gets an aura before the migraines, even when she is sleeping she states she typically gets an aura that will wake her up but that did not occur this time. She denies any focal neurologic symptoms. She states her neck feels a little stiff, but that is typically the case after sitting for IV chemotherapy infusions which she did yesterday, and her neck was bothering her prior to going to bed last night as a result. [facility] Medical History Anemia Gallbladder cancer Migraines Rupture of small intestine Seasonal allergies Vaginal atrophy Home Medications calcium carbonate 600 mg-vitamin D3 12.5 mcg (500 unit) capsule (Calcium 600 with Vitamin D3) 1 cap PO DAILY supplement 11/10/19 [History Last Taken Unknown] clobetasol 0.05 % topical ointment 1 applic topical QODAY 11/10/19 [History Last Taken Unknown] estradiol 0.01% (0.1 mg/gram) vaginal cream 1 g vaginal QODAY supplement 09/19/20 [History Last Taken Unknown] magnesium chloride 71.5 mg (magnesium chloride) tablet,delayed release 71.5 mg PO BID supplement 05/18/21 [History Last Taken Unknown] potassium chloride 20 mEq tablet,extended release(part/cryst) 40 meq PO TID supplement 05/18/21 [History Last Taken Unknown] prochlorperazine maleate 10 mg tablet (Compazine) 10 mg PO Q6H PRN Nausea 05/18/21 [History Last Taken Unknown] diphenoxylate-atropine 2.5 mg-0.025 mg tablet (Lomotil) 1 tab PO Q4H PRN Diarrhea 08/25/21 [History Last Taken Unknown] Allergy/AdvReac Type Severity Reaction Status Date / Time erythromycin base Allergy Mild upset Verified 12/06/21 04:27 stomach Sulfa (Sulfonamide Allergy Mild dizziness, Verified 12/06/21 04:27 Antibiotics) nausea, sweaty diphenhydramine AdvReac Other Verified 12/06/21 04:27 [From Benadryl] Family History Brother Prostate cancer Drug abuse Alcohol abuse Surgical History Bartholin cyst S/P ectopic Social History household members: spouse Smoking Status: Former smoker alcohol intake: never substance use type: does not use caffeine: No what type of physical activity do you participate in: walking, yoga and other details: ti kaye for balance frequency: daily seatbelt use: always do you feel safe at home: Yes additional social history: -Lebron Patient works at [employer] ROS ED Constitutional Constitutional ED: Denies chills or fever(s) Eyes Eyes: Reports photophobia; Denies blurry vision, change in vision or diplopia ENT ENT ED: Denies ear pain or sore throat Cardiovascular Cardiovascular: Denies chest pain or palpitations Respiratory/Chest Respiratory/Chest: Denies cough or dyspnea Gastrointestinal Gastrointestinal: Reports nausea; Denies abdominal pain, diarrhea or vomiting Genitourinary Genitourinary ED: Denies dysuria or urinary frequency Musculoskeletal Musculoskeletal: Reports neck pain; Denies back pain or myalgias Integumentary Denies abscess or rash Neurologic Neurologic: Reports headache(s); Denies paresthesias or weakness EXAM Physical Exam Const Vital Signs: 12/06/21 04:20 Temperature 97.1 F L Temperature Source Temporal Pulse Rate 92 Respiratory Rate 16 Blood Pressure 178/72 H Blood Pressure Mean 107 Pulse Ox 99 Oxygen Delivery Method Room Air HEENT Reports normocephalic and moist mucous membranes atraumatic Eyes PERRL, EOMs intact bilaterally and conjunctivae normal Eyes Narrative: mild photophobia Neck no lymphadenopathy, supple and no meningeal signs Resp normal respiratory effort and clear to auscultation bilaterally GI non-tender and non-distended Palpation: soft Extremity normal to inspection and full ROM Neuro oriented x3, CN's II-XII intact bilaterally, deep tendon reflexes 2+ bilaterally and gait normal Sensorium / Orientation: awake and alert Speech: speech normal Gait (Neuro): normal gait Motor Exam: strength 5/5 throughout and clonus absent Psych mental status grossly normal Mood & Affect: anxious Skin Lesions: no lesions Rashes: no rashes MDM MDM MDM Narrative Medical decision making narrative: Patient not anticoagulated blood pressure is elevated, certainly this could be causing her headache, or could be a result of the pain and stress of being here in the emergency department, or combination of the 2. Differential also includes intracerebral hemorrhage. We obtained a CT it is negative for any acute bleeding. I do not think she needs CT angiography or an LP in order to verify she does not have an acute subarachnoid hemorrhage. Furthermore, we gave her clonidine 0.1 mg just to try to help bring her pressure down while she was being observed and while electrolytes were resulting as well, soon after taking this pill she started feeling much better and prior to that felt the aura that she had missed this morning, and on reevaluation she states she feels a lot better and all of her symptoms are almost completely gone without any other treatment; since she had taken NSAID and Compazine prior to arrival, as I discussed with her, I did not want to give her repeat doses of any of those. My suspicion is that the medicine she took prior to coming here are what made her better, as a migraine is more likely the cause given the fact she ended up having similar aura that she has had in the past. Her potassium is low at 3.1 and given that she is on chemotherapy and right now has healthy kidneys, I thought it would be reasonable to replace with some IV potassium while we have her port accessed. I explained this to her, so as to try to optimize her electrolytes the best possible to avoid her getting too weak because of the chemotherapy, however she refuses the potassium and prefers to follow-up with her oncologist which she is scheduled to do today. Her repeat blood pressure is 130/85. Lab Data Attestation: I reviewed the patient's lab results. Labs: Laboratory Results - last 24 hr 12/06/21 04:45 Sodium 134 L Potassium 3.1 L Chloride 98 Carbon Dioxide 29.0 Anion Gap 7 BUN 15 Creatinine 0.59 Estim Creat Clear Calc 41.49 Est GFR (MDRD) Af Amer 129 Est GFR (MDRD) Non-Af 107 BUN/Creatinine Ratio 25.3 H Glucose 116 H Calcium 8.7 Radiography Diagnostic Testing: Clinical Impression(s) from Imaging Studies Brain CT 12/06/21 04:37 IMPRESSION: 1. Chronic involutional changes of the brain. 2. No demonstrated acute intracranial process. Electronically Signed: Leroy Page MD at 5:06 EDT Reading Location ID and State: [facility] / [place] , Service support , Discharge Plan Triage Chief Complaint: Headache ED Provider: Kal Carr Dx/Rx/DC Orders Clinical Impression: Headache, migraine, Accelerated hypertension, Hypokalemia Instructions: ED, Migraine (Classical) Prescriptions: No Action calcium carbonate-vitamin D3 [Calcium 600 with Vitamin D3] 600 mg(1,500mg) -500 unit capsule 1 cap PO DAILY clobetasol 0.05 % ointment 1 applic TOPICAL QODAY estradiol 0.01 % (0.1 mg/gram) cream 1 g vaginal QODAY prochlorperazine maleate [Compazine] 10 mg Tablet 10 mg PO Q6H PRN (Reason: Nausea) potassium chloride 20 mEq Tablet,Er Particles/Crystals 40 meq PO TID magnesium chloride 71.5 mg Tablet,Delayed Release (Dr/Ec) 71.5 mg PO BID diphenoxylate-atropine [Lomotil] 2.5-0.025 mg Tablet 1 tab PO Q4H PRN (Reason: Diarrhea) Primary Care Provider: Unique Mijares Referrals: Unique Mijares MD [Primary Care Provider] - [facility] appointment Disposition Disposition: Home, Self Care
[2021-12-06] MEDS: cloNIDine HCl 0.1 MG Tablet PO (04:40)
[2021-12-06 05:06] LABS: Anion Gap 7 (5-15); BUN 15 mg/dL (7-18); BUN/Creat Ratio 25.3 RATIO (10-20); Calcium,Total 8.7 mg/dL (8.5-10.1); Chloride 98 mmol/L (98-107); Creatinine, Serum 0.59 mg/dL (0.55-1.02); EST Glomerular Filtration Rate 107 mL/min (>60); Est Glom Filt Rate - Afr Amer 129 mL/min (>60); Estimated Creatinine Clearance 41.49 ml/min; Glucose 116 mg/dL (74-106); Potassium 3.1 mmol/L (3.5-5.1); Sodium Level 134 mmol/L (136-145)
[2021-12-06 05:19] VITALS: BP 130/85
[2021-12-06 05:28] VITALS: BP 130/85; PULSE 82; RESP 16; O2SAT 96
== END 2021-12-06 05:29 | disposition home or self-care (01) ==
PROVIDERS: Emergency Provider Emergency Medicine; PCP Internal Medicine; Visit Provider Emergency Medicine
DX: I10 Essential (primary) hypertension (principal); C23 Malignant neoplasm of gallbladder; D64.81 Anemia due to antineoplastic chemotherapy; E87.6 Hypokalemia; Z87.891 Personal history of nicotine dependence; G43.909 Migraine, unspecified, not intractable, without status migrainosus; Z92.21 Personal history of antineoplastic chemotherapy
CPT/HCPCS: 36591; 70450; 80048; 86850; 86900; 86901; 86920; 86922; 99283; A4216

== ENCOUNTER → 2021-12-07 | Outpatient (CLI) | payer MEDICARE, OTHER, SELFPAY ==
[2021-12-07 09:13] VITALS: BP 112/58; PULSE 78; RESP 16; TEMP 36.3; O2SAT 100; BMI 18.1
[2021-12-07] MEDS: 0.9% NaCl VAD Flush IV ×2 (09:13→13:03)
[2021-12-07 09:18] VITALS: BP 117/50; PULSE 79; RESP 16; TEMP 36.6; O2SAT 100
[2021-12-07 10:33] VITALS: BP 111/51; PULSE 78; RESP 16; TEMP 37.2; O2SAT 100
[2021-12-07 11:22] VITALS: BP 120/64; PULSE 76; RESP 16; TEMP 36.7; O2SAT 99
[2021-12-07 12:19] VITALS: BP 133/67; PULSE 75; RESP 16; TEMP 36.9; O2SAT 99
[2021-12-07 12:33] VITALS: BP 142/80; PULSE 84; RESP 16; TEMP 37.2; O2SAT 99
== END | disposition home or self-care (01) ==
LOC: MEDOUTP 09:00
PROVIDERS: PCP Internal Medicine; Referring Provider Internal Medicine Hematology & Oncology; Visit Provider Internal Medicine Hematology & Oncology
DX: D64.81 Anemia due to antineoplastic chemotherapy (principal)
CPT/HCPCS: 36430; 86850; 86900; 86901; 86920; 86922; J7040; P9016; A4216

== ENCOUNTER 2021-12-13 13:13 | Inpatient (IN) | payer MEDICARE, OTHER, SELFPAY ==
[2021-12-13] VITALS (17 sets, daily range): BP systolic 114–137; BP diastolic 60–86; PULSE 85–105; RESP 13–21; TEMP 36.6–37.3; O2SAT 95–100; BMI 18.1; BMI 18.8
--- NOTE | 2021-12-13 15:16 | EX.ED.DYSGE1 ---
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 She has had transfusions in the past. They state that on Friday, approximately 4 days ago, her hemoglobin was 9.2. She had received a blood transfusion on Friday as she has had multiple blood transfusion in the past. Previously before her transfusion on Friday it was just above 7. She saw her oncologist, Dr. Stephens, today who did laboratory work and her hemoglobin is low at 6.5. She denies any black tarry stool. No hematemesis. She does not take blood thinners and denies any bleeding diathesis. She states that she was sent here for blood transfusion, and basically to be admitted and have endoscopy performed because she could have a bleeding ulcer versus the tumor itself in the gallbladder bleeding. She denies any exacerbating or alleviating factors. [facility] Medical History (Updated 12/13/21 @ 17:29 by Elmer Pham MD) Anemia Chemotherapy induced diarrhea Former tobacco use Gallbladder cancer HTN (hypertension) Migraines Rupture of small intestine Seasonal allergies Vaginal atrophy Home Medications calcium carbonate 600 mg-vitamin D3 12.5 mcg (500 unit) capsule (Calcium 600 with Vitamin D3) 1 cap PO DAILY supplement 11/10/19 [History Last Taken Unknown] magnesium chloride 71.5 mg (magnesium chloride) tablet,delayed release 71.5 mg PO BID supplement 05/18/21 [History Last Taken Unknown] potassium chloride 20 mEq tablet,extended release(part/cryst) 40 meq PO TID supplement 05/18/21 [History Last Taken Unknown] losartan 25 mg tablet 25 mg PO BID 12/13/21 [History Last Taken Unknown] ondansetron HCl 8 mg tablet 8 mg PO PRN PRN Nausea 12/13/21 [History Last Taken Unknown] Allergy/AdvReac Type Severity Reaction Status Date / Time erythromycin base Allergy Mild upset Verified 12/13/21 13:16 stomach Sulfa (Sulfonamide Allergy Mild dizziness, Verified 12/13/21 13:16 Antibiotics) nausea, sweaty diphenhydramine AdvReac Other Verified 12/13/21 13:16 [From Kathleen] Family History Brother Prostate cancer Drug abuse Alcohol abuse Surgical History Bartholin cyst S/P ectopic Social History household members: spouse Smoking Status: Former smoker alcohol intake: never substance use type: does not use caffeine: No what type of physical activity do you participate in: walking, yoga and other details: ti kaye for balance frequency: daily seatbelt use: always do you feel safe at home: Yes additional social history: -Lebron Patient works at [employer] ED ROS Narrative Constitutional: No fever, no chills. Generalized weakness. HEENT: No sore throat. No neck pain. No loss of vision. No rhinorrhea. Cardiovascular: No chest pain. No palpitations. No pedal edema. Respiratory: No cough, positive shortness of breath. Abdominal: No abdominal pain. No nausea. No vomiting. Genitourinary: No dysuria. No hematuria. Musculoskeletal: No myalgias. No arthralgias. Neurologic: No headaches. No dizziness. No lightheadedness. Skin: No rash. No change in color. Psychiatric: No depression. No anxiety. EXAM Physical Exam Narrative Exam Narrative: Afebrile. Vital signs noted. HEENT: Normocephalic. Atraumatic. PERRL, EOMI. Neck soft and supple. No point tenderness or step off. Cardiovascular: Regular rate and rhythm. No murmurs, rubs, or gallops appreciated. Respiratory: No tachypnea. Lungs clear to auscultation bilaterally. Gastrointestinal: Abdomen soft, nontender, with normoactive bowel sounds. No rebound or guarding. Neurological: Awake. Alert. Nonfocal, nonlateralizing. Skin: No rash. Normal color. Positive pallor. Musculoskeletal: No pedal edema. Full range of motion extremities. Const Vital Signs: 12/13/21 13:14 12/13/21 14:24 12/13/21 14:26 Temperature 98 F Temperature Source Temporal Pulse Rate 92 90 Respiratory Rate 16 14 Respiratory Effort Normal Non-Labored Respiratory Pattern Normal Blood Pressure 125/80 H Blood Pressure Mean 95 Blood Pressure Source Blood Pressure Position Blood Pressure Location Pulse Ox 100 99 Oxygen Delivery Method Room Air Room Air 12/13/21 17:08 12/13/21 17:13 12/13/21 17:20 Temperature 98.9 F 98.2 F Temperature Source Oral Oral Pulse Rate 103 H 105 H 97 Respiratory Rate 21 H 21 H 13 Respiratory Effort Respiratory Pattern Blood Pressure 126/62 H 126/62 H 121/63 H Blood Pressure Mean 83 83 82 Blood Pressure Source Monitor Monitor Blood Pressure Position Semi-Fowlers Semi-Fowlers Blood Pressure Location Right Arm Right Arm Pulse Ox 98 98 98 Oxygen Delivery Method Room Air Room Air Room Air MDM MDM MDM Narrative Medical decision making narrative: I reviewed her laboratory work from today. Her hemoglobin is low at 6.5. I will perform rectal examination, obtain another CBC to ensure that this is not lab error, and type and crossmatch her for 2 units. Patient and family state that the oncologist has already spoken with gastroenterology, Dr. Walsh, and they recommend inpatient admission. Repeat CBC shows hemoglobin 6.1. Hemoccult is pending from chaperoned rectal examination. She was typed and crossed for the 2 units and transfusion will be started. I discussed patient with Dr. Ene Willingham for admission to the medical surgical floor. Patient is in stable condition. Lab Data Attestation: I reviewed the patient's lab results. Labs: Laboratory Results - last 24 hr 12/13/21 12/13/21 12/13/21 15:20 15:20 15:20 WBC 6.4 Cancelled Corrected WBC Cancelled RBC 1.97 L Cancelled Hgb 6.1 L Cancelled Hct 19.1 L Cancelled MCV 97.0 Cancelled MCH 31.0 Cancelled MCHC 31.9 L Cancelled RDW Std Deviation 73.8 H Cancelled RDW Coeff of [place] 20.9 H Cancelled Plt Count 114 L Cancelled MPV 9.7 Cancelled Immature Gran % (Auto) 0.500 Cancelled Neut % (Auto) 89.1 H Cancelled Lymph % (Auto) 7.6 L Cancelled [place] % (Auto) 1.9 Cancelled Eos % (Auto) 0.6 Cancelled Baso % (Auto) 0.3 Cancelled Absolute Neuts (auto) 5.7 Cancelled Absolute Lymphs (auto) 0.49 L Cancelled Total Counted Cancelled Neutrophils % (Manual) Cancelled Band Neutrophils % Cancelled Lymphocytes % (Manual) Cancelled Monocytes % (Manual) Cancelled Eosinophils % (Manual) Cancelled Basophils % (Manual) Cancelled Metamyelocytes % Cancelled Myelocytes % Cancelled Promyelocytes % Cancelled Blast Cells % Cancelled Plasma Cell % (Manual) Cancelled Other Cells % Cancelled Nucleated RBC % 0 Cancelled Nucleated RBCs/100 WBC Cancelled Differential Comment SCANNED Cancelled Diff Path Review Cancelled Hypersegmented Neuts Cancelled Atypical Lymphocytes Cancelled Reactive Lymphocytes Cancelled Smudge Cells Cancelled Toxic Granulation Cancelled Toxic Vacuolation Cancelled Dohle Bodies Cancelled Mj Rods Cancelled Platelet Estimate Cancelled Plt Morphology Comment Cancelled RBC Morphology Cancelled Polychromasia Cancelled Hypochromasia 1+ Cancelled Poikilocytosis Cancelled Basophilic Stippling Cancelled Anisocytosis 2+ Cancelled Microcytosis Cancelled Macrocytosis Cancelled Spherocytes Cancelled Sickle Cells Cancelled Target Cells Cancelled Tear Drop Cells Cancelled Ovalocytes Cancelled Stomatocytes Cancelled [place] Bodies Cancelled Curtice Cells Cancelled Bite Cells Cancelled Crenated Cell Cancelled Acanthocytes (Spur) Cancelled Rouleaux Cancelled Schistocytes RARE Cancelled Sodium 135 L Potassium 4.3 Chloride 103 Carbon Dioxide 25.0 Anion Gap 7 BUN 21 H Creatinine 0.49 L Estim Creat Clear Calc 41.44 Est GFR (MDRD) Af Amer 161 Est GFR (MDRD) Non-Af 133 BUN/Creatinine Ratio 43.0 H Glucose 94 Calcium 8.8 Blood Type Antibody Screen Crossmatch 12/13/21 15:20 WBC Corrected WBC RBC Hgb Hct MCV MCH MCHC RDW Std Deviation RDW Coeff of [place] Plt Count MPV Immature Gran % (Auto) Neut % (Auto) Lymph % (Auto) [place] % (Auto) Eos % (Auto) Baso % (Auto) Absolute Neuts (auto) Absolute Lymphs (auto) Total Counted Neutrophils % (Manual) Band Neutrophils % Lymphocytes % (Manual) Monocytes % (Manual) Eosinophils % (Manual) Basophils % (Manual) Metamyelocytes % Myelocytes % Promyelocytes % Blast Cells % Plasma Cell % (Manual) Other Cells % Nucleated RBC % Nucleated RBCs/100 WBC Differential Comment Diff Path Review Hypersegmented Neuts Atypical Lymphocytes Reactive Lymphocytes Smudge Cells Toxic Granulation Toxic Vacuolation Dohle Bodies Mj Rods Platelet Estimate Plt Morphology Comment RBC Morphology Polychromasia Hypochromasia Poikilocytosis Basophilic Stippling Anisocytosis Microcytosis Macrocytosis Spherocytes Sickle Cells Target Cells Tear Drop Cells Ovalocytes Stomatocytes [place] Bodies Curtice Cells Bite Cells Crenated Cell Acanthocytes (Spur) Rouleaux Schistocytes Sodium Potassium Chloride Carbon Dioxide Anion Gap BUN Creatinine Estim Creat Clear Calc Est GFR (MDRD) Af Amer Est GFR (MDRD) Non-Af BUN/Creatinine Ratio Glucose Calcium Blood Type O POSITIVE Antibody Screen NEGATIVE Crossmatch See Detail Discharge Plan Dx/Rx/DC Orders Clinical Impression: Anemia requiring transfusions, Gallbladder cancer, Hyponatremia Disposition Disposition: Acute Care Hospital [facility]
[2021-12-13 15:46] LABS: Absolute Lymphocyte Count 0.49 X10^3/uL (0.83-4.51); Absolute Neutrophil Count 5.7 X10^3/uL (2.0-7.7); Basophil# 0.02 X10^3/uL; Basophil% 0.3 % (0-1); Eosinophil# 0.04 X10^3/uL; Eosinophils% 0.6 % (0-5); Hematocrit 19.1 % (37-47); Hemoglobin 6.1 g/dL (12.0-15.0); Lymphocyte # 0.49 X10^3/ul (0.83-4.51); Lymphocyte % 7.6 % (19-41); Mean Corp Hgb Conc 31.9 g/dL (32-36); Mean Platelet Vol. 9.7 fl (6.2-12.0); Monocyte# 0.12 X10^3/uL; Monocyte% 1.9 % (0-10); NRBC Flagged by Analyzer 0 % (0-5); Neutrophil # 5.74 X10^3/uL (2.7-7.7); Neutrophil % 89.1 % (47-70); POSITIVE DIFFERENTIAL YES; POSITIVE MORPHOLOGY YES; Platelet Count 114 K/mm3 (150-450); RBC Distribution Width CV 20.9 % (11.6-14.6); RBC Distribution Width SD 73.8 fl (35.1-43.9); Red Blood Count 1.97 M/mm3 (4.2-5.4); White Blood Count 6.4 K/mm3 (4.4-11.0)
[2021-12-13 16:13] LABS: Anion Gap 7 (5-15); BUN 21 mg/dL (7-18); Calcium,Total 8.8 mg/dL (8.5-10.1); Chloride 103 mmol/L (98-107); Creatinine, Serum 0.49 mg/dL (0.55-1.02); EST Glomerular Filtration Rate 133 mL/min (>60); Est Glom Filt Rate - Afr Amer 161 mL/min (>60); Estimated Creatinine Clearance 41.44 ml/min; Glucose 94 mg/dL (74-106); Potassium 4.3 mmol/L (3.5-5.1); Sodium Level 135 mmol/L (136-145)
[2021-12-13 16:23] LABS: Differential Indicated SCAN CRITERIA MET
[2021-12-13 16:25] LABS: Anisocytosis 2+; Differential Comment SCANNED; Hypochromasia 1+; Schistocytes RARE
--- NOTE | 2021-12-13 17:20 | HP.PCM.HOS_ITS ---
HPI - General General Date of Admission: 12/13/21 Date of Service: 12/13/21 Chief Complaint: Weakness, malaise, lightheadedness, dyspnea. 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 Stephens with ongoing chemotherapy, previously admitted 08/2021 secondary to chemotherapy induced severe diarrhea who now re-presents to the [facility] ED on 12/13/21 with history of worsening debility, fatigue, dyspnea, worse with exertion as well as lightheadedness/dizziness especially with positional changes with recent [facility] Hgb the Friday of the current week reportedly 9.2 with transfusion the prior Friday with evaluation per Dr. Stephens on day of presentation with outpatient Hgb recheck given symptoms, noted to be 6.5 prompting referral to the ED for PRBC administration. Patient denies any dark black tarry stools or hematemesis and is not on any blood thinners. Oncology recommended patient be admitted for transfusion but also for endoscopy given concerns for possible bleeding ulcer versus bleeding from the tumor itself. Work-up in the ED included T98.2, heart rate 97, BP 121/63, respiratory rate 13, 98% on room air, CBC with WBC 6.4, hemoglobin 6.1, MCV 97, platelet 114 with lymphopenia, BMP with sodium 135, BUN/creatinine 21/0.49, type and cross 2 u PRBC performed per ED physician. Hemoccult testing pending upon requested evaluation of patient. [facility] Medical History Anemia Chemotherapy induced diarrhea Former tobacco use Gallbladder cancer HTN (hypertension) Migraines Rupture of small intestine Seasonal allergies Vaginal atrophy Home Medications calcium carbonate 600 mg-vitamin D3 12.5 mcg (500 unit) capsule (Calcium 600 with Vitamin D3) 1 cap PO DAILY supplement 11/10/19 [History Last Taken 12/12/21] potassium chloride 20 mEq tablet,extended release(part/cryst) 40 meq PO TID supplement 05/18/21 [History Last Taken 12/13/21] acetaminophen 325 mg tablet 650 mg PO BID PRN Pain 12/13/21 [History Last Taken 12/12/21] losartan 25 mg tablet 25 mg PO BID@0800,2000 BP 12/13/21 [History Last Taken 12/13/21] magnesium chloride 71.5 mg (magnesium chloride) tablet,delayed release (Slow- Mag) 71.5 mg PO TID SUPPLEMENT 12/13/21 [History Last Taken 12/13/21] prochlorperazine maleate 10 mg tablet 10 mg PO Q6H PRN PRN Nausea 12/13/21 [His tory Last Taken 12/12/21] promethazine 25 mg tablet 25 mg PO Q4H PRN Nausea 12/13/21 [History Last Taken Unknown] Allergy/AdvReac Type Severity Reaction Status Date / Time erythromycin base Allergy Mild upset Verified 12/13/21 13:16 stomach Sulfa (Sulfonamide Allergy Mild dizziness, Verified 12/13/21 13:16 Antibiotics) nausea, sweaty diphenhydramine AdvReac Other Verified 12/13/21 13:16 [From Benadryl] Family History (Updated 12/13/21 @ 18:[address] Ene Willingham MD) Brother Prostate cancer Drug abuse Alcohol abuse Mother Hypertension HLD (hyperlipidemia) Pulmonary embolism Father Glaucoma Surgical History (Updated 12/13/21 @ 18:[address] Ene Willingham MD) Bartholin cyst History of unilateral salpingectomy S/P ectopic S/P small bowel resection Social History household members: spouse Smoking Status: Former smoker alcohol intake: never substance use type: does not use caffeine: No what type of physical activity do you participate in: walking, yoga and other details: ti kaye for balance frequency: daily seatbelt use: always do you feel safe at home: Yes additional social history: -[place] Patient works at [employer] Narrative Admission Review of Systems: CONSTITUTIONAL: No weight loss, fever, chills, + weakness or fatigue. HEENT: Eyes: No visual loss, blurred vision, double vision or yellow sclerae. Ears, Nose, Throat: No hearing loss, sneezing, congestion, runny nose or sore throat. SKIN: No rash or itching, lesions, wounds. CARDIOVASCULAR: No chest pain, chest pressure or chest discomfort, palpitations, edema, orthopnea, syncopal events. RESPIRATORY: + shortness of breath, No cough or sputum, wheezing, hemoptysis. GASTROINTESTINAL: No anorexia, nausea, vomiting or diarrhea, abdominal pain, melena, BRBPR. GENITOURINARY: No dysuria, frequency, urgency or retention. NEUROLOGICAL: No headache, dizziness, syncope, paralysis, ataxia, numbness or tingling in the extremities, focal weakness, change in bowel or bladder control, seizure. MUSCULOSKELETAL: + muscle, back pain, joint pain or stiffness. HEMATOLOGIC: + anemia, bleeding or bruising. LYMPHATICS: + enlarged nodes. No history of splenectomy. PSYCHIATRIC: No history of depression or anxiety. ENDOCRINOLOGIC: No reports of sweating, cold or heat intolerance. No polyuria or polydipsia. ALLERGIES: No history of asthma, hives, eczema or rhinitis. Vital Signs Vital Signs Vital Signs: 12/13/21 13:14 12/13/21 14:24 12/13/21 14:26 Temperature 98 F Temperature Source Temporal Pulse Rate 92 90 Respiratory Rate 16 14 Respiratory Effort Normal Non-Labored Respiratory Pattern Normal Blood Pressure 125/80 H Blood Pressure Mean 95 Blood Pressure Source Blood Pressure Position Blood Pressure Location Pulse Ox 100 99 Oxygen Delivery Method Room Air Room Air 12/13/21 17:08 12/13/21 17:13 Temperature 98.9 F Temperature Source Oral Pulse Rate 103 H 105 H Respiratory Rate 21 H 21 H Respiratory Effort Respiratory Pattern Blood Pressure 126/62 H 126/62 H Blood Pressure Mean 83 83 Blood Pressure Source Monitor Blood Pressure Position Semi-Fowlers Blood Pressure Location Right Arm Pulse Ox 98 98 Oxygen Delivery Method Room Air Room Air Weight Weight: 109 lb Body Mass Index (BMI) 18.1 Physical Exam Narrative Physical Examination: General: Awake, alert, oriented x 3 and cooperative, seated upright in bed in no apparent distress. Skin: Pale color, normal turgor, no icterus, no cyanosis. HEENT: AT/NC, EOMI, PERRLA, mildly dry MM, no carotid bruits or JVD noted. Lungs: Mildly diminished, greater bases, appropriate effort, no rales, ronchi or wheezing. Heart: Tachycardic with regular rhythm; no gallop, rub audible. Abdomen: Soft, thin habitus, NTTP, ND, mildly hyperactive BS, no obvious evidence of HSM. Extremities: No cyanosis, clubbing, or edema. Neurological: Patient awake, alert, oriented as noted cognitive function intact; pupils equally reactive to light and accommodation, cranial nerves II-XII grossly normal, moving all 4 extremities, no focal deficits, strength mildly to moderately global decrease secondary to acute presentation Psychiatric: Affect appears fatigued otherwise normal, no acute evidence of depressive or anxiety feelings. Results Lab / Micro Data Result Diagrams: 12/13/21 15:20 12/13/21 15:20 Labs: Laboratory Results - last 24 hr 12/13/21 15:20: WBC 6.4, RBC 1.97 L, Hgb 6.1 L, Hct 19.1 L, MCV 97.0, MCH 31.0, MCHC 31.9 L, RDW Std Deviation 73.8 H, RDW Coeff of Roldan 20.9 H, Plt Count 114 L, MPV 9.7, Immature Gran % (Auto) 0.500, Neut % (Auto) 89.1 H, Lymph % (Auto) 7.6 L, Brown % (Auto) 1.9, Eos % (Auto) 0.6, Baso % (Auto) 0.3, Absolute Neuts (auto) 5.7, Absolute Lymphs (auto) 0.49 L, Nucleated RBC % 0, Differential Comment SCANNED, Hypochromasia 1+, Anisocytosis 2+, Schistocytes RARE 12/13/21 15:20: Sodium 135 L, Potassium 4.3, Chloride 103, Carbon Dioxide 25.0, Anion Gap 7, BUN 21 H, Creatinine 0.49 L, Estim Creat Clear Calc 41.44, Est GFR (MDRD) Af Amer 161, Est GFR (MDRD) Non-Af 133, BUN/Creatinine Ratio 43.0 H, Glucose 94, Calcium 8.8 12/13/21 15:20: WBC Cancelled, Corrected WBC Cancelled, RBC Cancelled, Hgb Cancelled, Hct Cancelled, MCV Cancelled, MCH Cancelled, MCHC Cancelled, RDW Std Deviation Cancelled, RDW Coeff of Roldan Cancelled, Plt Count Cancelled, MPV Cancelled, Immature Gran % (Auto) Cancelled, Neut % (Auto) Cancelled, Lymph % (Auto) Cancelled, Brown % (Auto) Cancelled, Eos % (Auto) Cancelled, Baso % (Auto) Cancelled, Absolute Neuts (auto) Cancelled, Absolute Lymphs (auto) Cancelled, Total Counted Cancelled, Neutrophils % (Manual) Cancelled, Band Neutrophils % Cancelled, Lymphocytes % (Manual) Cancelled, Monocytes % (Manual) Cancelled, Eosinophils % (Manual) Cancelled, Basophils % (Manual) Cancelled, Metamyelocytes % Cancelled, Myelocytes % Cancelled, Promyelocytes % Cancelled, Blast Cells % Cancelled, Plasma Cell % (Manual) Cancelled, Other Cells % Cancelled, Nucleated RBC % Cancelled, Nucleated RBCs/100 WBC Cancelled, Differential Comment Cancelled, Diff Path Review Cancelled, Hypersegmented Neuts Cancelled, Atypical Lymphocytes Cancelled, Reactive Lymphocytes Cancelled, Smudge Cells Cancelled, Toxic Granulation Cancelled, Toxic Vacuolation Cancelled, Dohle Bodies Cancelled, Mj Rods Cancelled, Platelet Estimate Cancelled, Plt Morphology Comment Cancelled, RBC Morphology Cancelled, Polychromasia Cancelled, Hypochromasia Cancelled, Poikilocytosis Cancelled, Basophilic Stippling Cancelled, Anisocytosis Cancelled, Microcytosis Cancelled, Macrocytosis Cancelled, Spherocytes Cancelled, Sickle Cells Cancelled, Target Cells Cancelled, Tear Drop Cells Cancelled, Ovalocytes Cancelled, Stomatocytes Cance lled, [place] Bodies Cancelled, [place] Cells Cancelled, Bite Cells Cancelled, Crenated Cell Cancelled, Acanthocytes (Spur) Cancelled, Rouleaux Cancelled, Schistocytes Cancelled 12/13/21 15:20: Blood Type O POSITIVE, Antibody Screen NEGATIVE, Crossmatch See Detail Assessment & Plan Assessment/Plan (1) Anemia requiring transfusions: PLAN: Plan The patient is a 71 y/o F w/ PMHx: Allergic Rhinitis, HTN, Hx Migraines, Hx Lichen sclerosus, 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 Stephens with ongoing chemotherapy, previously admitted 08/2021 secondary to chemotherapy induced severe diarrhea who now re-presents to the [facility] ED on 12/13/21 with history of worsening debility, fatigue, dyspnea, worse with exertion as well as lightheadedness/dizziness especially with positional changes with recent [facility] Hgb the Friday of the current week reportedly 9.2 with transfusion the prior Friday with evaluation per Dr. Stephens on day of presentation with outpatient Hgb recheck given symptoms, noted to be 6.5. #1. Acute on Chronic Blood Loss Anemia, Possibly GI bleed component versus unfortunately bleeding from the Gallbladder CA: Admission Hgb 6.1, will admit to [facility] telemetry, maintain on IVFs, obtain serial H+H, pending PRBC 2 u administration initiated per ED with further as needed pending trending, in case GI bleed will maintain on IV PPI, maintain on clears with NPO at midnight with continued GI consultation initiated per Dr. Stephens outpatient. #2. Stage IV Gallbladder adenocarcinoma, metastatic: Patient with metastatic to the liver following w/ Dr. Stephens with ongoing chemotherapy, previously admitted 08/2021 secondary to chemotherapy induced severe diarrhea. Mag and phos levels requested. Hepatic profile requested given history. Dr. Stephens consulted to follow. #3. Thrombocytopenia, chronic: Patient with admission platelet 114, prior 140s, likely secondary to underlying cancer with chemotherapy ongoing as noted, trend CBC. #4. Hypertension: Continue home regimen including losartan with hold parameters as needed, PRN hydralazine. #5. DVT prophylaxis: SCDs, defer chemoprophylaxis given acute presentation #1. #6. CODE status: Patient SARAH is her and her eldest daughter and living will is currently in place. Discussed CODE status at length including difference between FULL code, DNR-CCA and DNR-CC status. Following discussions about the differences in these status, requested Full Code status. Advanced Care Planning Face to Face Time: 16 minutes. Charges/Coding Visit Charges Inpatient E&M: 79066 Init Hosp L3 Procedures Hospitalists Procedures: 13391 Advncd Care Plan 30 Min
[2021-12-13 17:59] LABS: AST(SGOT) 103 U/L (15-37); Alanine Aminotransfer ALT/SGPT 70 U/L (13-56); Albumin, Serum 2.3 g/dL (3.2-5.0); Alkaline Phosphatase 207 U/L (45-117); Bilirubin, Direct 0.21 mg/dL (0.00-0.30); Magnesium 1.9 mg/dL (1.6-2.6); Protein, Total 6.3 g/dL (6.4-8.2)
[2021-12-13] MEDS: Potassium Chloride Oral Tablet 20 MEQ 40 MEQ PO (20:15)
[2021-12-13] MEDS: Losartan Potassium 25 MG Tablet PO (20:15)
[2021-12-13] MEDS: 0.9% Normal Saline 1,000 ML 100 ML IV (22:12)
--- NOTE | 2021-12-13 23:00 | CON.PCM_ITS ---
Assessment & Plan Assessment/Plan (1) Anemia requiring transfusions: PLAN: She did have black tarry stools which makes me highly suspicious for an upper GI bleed above the ligament of Treitz. The differential diagnosis for that would be local metastasis more likely in the duodenum because of the location of the tumor more than the stomach. Also different diagnosis would be peptic ulcer disease involving the stomach or duodenum. I do not think this is medication induced. She should undergo an upper endoscopy for evaluation of her GI tract and if negative she will need a colonoscopy and possibly capsule endoscopy. She was explained alternatives, risk, benefits including outstanding bleeding, infection, sepsis, perforation, need for emergency or . She will have an ASA of 3. HPI Consult Data Date of Consult: 12/13/21 HPI Narrative Reason for Consultation: GI bleeding HPI Narrative: JENNY RAZA, is a 71 F who presents to the ED with worsening anemia. She has a past medical history of adenocarcinoma of the gallbladder with metastasis to the liver, stage IV, presents with feelings of shortness of breath and generalized weakness.? She has had transfusions in the past.? They state that on Friday, approximately 4 days ago, her hemoglobin was 9.2.? She had received a blood transfusion on Friday as she has had multiple blood transfusion in the past.? Previously before her transfusion on Friday it was just above 7.? She saw her oncologist, Dr. Stephens, today who did laboratory work and her hemoglobin is low at 6.5.? She denies any black tarry stool.? No hematemesis.? She does not take blood thinners and denies any bleeding diathesis.? She states that she was sent here for blood transfusion, and basically to be admitted and have endoscopy performed because she could have a bleeding ulcer versus the tumor itself in the gallbladder bleeding.? She denies any exacerbating or alleviating factors. [facility] Medical History (Updated 12/14/21 @ 07:[address] Flakita Stephens MD) Anemia Chemotherapy induced diarrhea Former tobacco use Gallbladder cancer HTN (hypertension) Migraines Rupture of small intestine Seasonal allergies Vaginal atrophy Home Medications calcium carbonate 600 mg-vitamin D3 12.5 mcg (500 unit) capsule (Calcium 600 wit h Vitamin D3) 1 cap PO DAILY supplement 11/10/19 [History Last Taken 12/12/21] potassium chloride 20 mEq tablet,extended release(part/cryst) 40 meq PO TID supplement 05/18/21 [History Last Taken 12/13/21] acetaminophen 325 mg tablet 650 mg PO BID PRN Pain 12/13/21 [History Last Taken 12/12/21] losartan 25 mg tablet 25 mg PO BID@0800,2000 BP 12/13/21 [History Last Taken 12/13/21] magnesium chloride 71.5 mg (magnesium chloride) tablet,delayed release (Slow- Mag) 71.5 mg PO TID SUPPLEMENT 12/13/21 [History Last Taken 12/13/21] prochlorperazine maleate 10 mg tablet 10 mg PO Q6H PRN PRN Nausea 12/13/21 [History Last Taken 12/12/21] promethazine 25 mg tablet 25 mg PO Q4H PRN Nausea 12/13/21 [History Last Taken Unknown] Allergy/AdvReac Type Severity Reaction Status Date / Time erythromycin base Allergy Mild upset Verified 12/13/21 13:16 stomach Sulfa (Sulfonamide Allergy Mild dizziness, Verified 12/13/21 13:16 Antibiotics) nausea, sweaty diphenhydramine AdvReac Other Verified 12/13/21 13:16 [From Benadryl] Family History (Updated 12/13/21 @ 18:[address] Ene Willingham MD) Brother Prostate cancer Drug abuse Alcohol abuse Mother Hypertension HLD (hyperlipidemia) Pulmonary embolism Father Glaucoma Surgical History (Updated 12/13/21 @ 18:[address] Ene Willingham MD) Bartholin cyst History of unilateral salpingectomy S/P ectopic S/P small bowel resection Social History household members: spouse Smoking Status: Former smoker alcohol intake: never substance use type: does not use caffeine: No what type of physical activity do you participate in: walking, yoga and other details: ti kaye for balance frequency: daily seatbelt use: always do you feel safe at home: Yes additional social history: -Le[place] Patient works at [employer] Narrative Admission Review of Systems: CONSTITUTIONAL: No weight loss, fever, chills, + weakness or fatigue. HEENT: Eyes: No visual loss, blurred vision, double vision or yellow sclerae. Ears, Nose, Throat: No hearing loss, sneezing, congestion, runny nose or sore throat. SKIN: No rash or itching, lesions, wounds. CARDIOVASCULAR: No chest pain, chest pressure or chest discomfort, palpitations, edema, orthopnea, syncopal events. RESPIRATORY: + shortness of breath, No cough or sputum, wheezing, hemoptysis. GASTROINTESTINAL: No anorexia, nausea, vomiting or diarrhea, abdominal pain, melena, BRBPR. GENITOURINARY: No dysuria, frequency, urgency or retention. NEUROLOGICAL: No headache, dizziness, syncope, paralysis, ataxia, numbness or tingling in the extremities, focal weakness, change in bowel or bladder control, seizure. MUSCULOSKELETAL: + muscle, back pain, joint pain or stiffness. HEMATOLOGIC: + anemia, bleeding or bruising. LYMPHATICS: + enlarged nodes. No history of splenectomy. PSYCHIATRIC: No history of depression or anxiety. ENDOCRINOLOGIC: No reports of sweating, cold or heat intolerance. No polyuria or polydipsia. ALLERGIES: No history of asthma, hives, eczema or rhinitis. Physical Exam Const alert, oriented x3 and no apparent distress HEENT head/scalp atraumatic, moist oral mucous membranes and oropharynx normal Head and Scalp: normocephalic Mouth: oral and palatal mucosa normal Eyes PERRL, EOMs intact bilaterally and conjunctivae normal Neck no lymphadenopathy, supple and no JVD Resp normal respiratory effort, no retractions, no use of accessory muscles and clear to auscultation bilaterally Cardio regular rate, regular rhythm, S1 normal heart sound, S2 normal heart sound and no murmurs GI normal to inspection, nondistended, normoactive bowel sounds, soft to palpation, non-tender and non-distended Extremity normal to inspection, full ROM and no clubbing, cyanosis or edema General Extremity: edema Neuro oriented x3, CN's II-XII intact bilaterally, moves all extremities and no focal motor deficits Sensorium / Orientation: awake and alert Motor Exam: strength 5/5 throughout Psych Mood & Affect: anxious Lab / Micro Data Result Diagrams: 12/14/21 04:31 12/14/21 04:31 Labs: Laboratory Results - last 24 hr 12/13/21 15:20: Blood Type O POSITIVE, Antibody Screen NEGATIVE, Crossmatch See Detail 12/13/21 15:20: Phosphorus 3.0, Magnesium 1.9, Total Bilirubin 0.70, Direct Bilirubin 0.21, AST 103 H, ALT 70 H, Alkaline Phosphatase 207 H, Total Protein 6 .3 L, Albumin 2.3 L, Globulin 4.0 12/13/21 23:20: Hgb 9.1 L, Hct 27.5 L 12/14/21 04:31: WBC 6.2, RBC 2.93 L, Hgb 8.8 L, Hct 26.3 L, MCV 89.8 D, MCH 30.0, MCHC 33.5 D, RDW Std Deviation 63.9 H, RDW Coeff of Roldan 20.0 H, Plt Count 99 L, MPV 10.0, Immature Gran % (Auto) 0.500, Neut % (Auto) 87.7 H, Lymph % (Auto) 8.1 L, [place]olls % (Auto) 1.8, Eos % (Auto) 1.6, Baso % (Auto) 0.3, Absolute Neuts (auto) 5.4, Absolute Lymphs (auto) 0.50 L, Nucleated RBC % 0, Differential Comment , Platelet Estimate MOD DEC, RBC Morphology N CYTIC, Anisocytosis 1+ 12/14/21 04:31: Sodium 137, Potassium 3.9, Chloride 105, Carbon Dioxide 24.0, Anion Gap 8, BUN 14, Creatinine 0.47 L, Estim Creat Clear Calc 42.08, Est GFR (MDRD) Af Amer 169, Est GFR (MDRD) Non-Af 139, BUN/Creatinine Ratio 29.8 H, Glucose 93, Calcium 8.6, Total Bilirubin 2.10 H, AST 88 H, ALT 63 H, Alkaline Phosphatase 225 H, Total Protein 6.1 L, Albumin 2.2 L, Globulin 3.9, Albumin/Globulin Ratio 0.6 L Micro: Microbiology 12/13/21 17:30 Stool Stool Occult Blood (LUIS) - Final Charges/Coding Visit Charges Inpatient E&M: 81060 Init Hosp L2
[2021-12-13 23:43] LABS: Hematocrit 27.5 % (37-47); Hemoglobin 9.1 g/dL (12.0-15.0); POSITIVE COUNT YES
[2021-12-14] VITALS (21 sets, daily range): BP systolic 96–152; BP diastolic 44–86; PULSE 67–92; RESP 12–18; TEMP 36.6–37.1; O2SAT 94–100; BMI 18.1
--- NOTE | 2021-12-14 | IMM_PTH ---
PATIENT: JENNY RAZA LOC: MS3 U#:[id number] AGE/SX: 71/F ROOM: MS305 RE12/13/[address]: Dr. Jossy Tolbert MD : 1950 BED: 1 DIS: 12/18/2021 SPEC #: [id number] RECD: 12/18/21 13:50 STATUS: SOULb REQ #: [id number] MYA: 12/14/21 00:[address]: Michael Walsh DEPT: IMMUNOHISTOCHEMISTRY RECD BY: Annie Dupree ENTERED: 12/18/21 13:52 SP TYPE: IMMUNO OTHR DR: Deborah Walsh, SENIOR MEDIA PLANNER-C MD Dr. Ene Brunson MD Dr. Chitra Ganta, MD Dr. Drew Abramovich, MD Dr. David R Lance, DO Dr. Elnora Spradling, MD Dr. Jodi Hannan, MD Dr. Lapman Lun, MD Dr. Mir Ali, MD Dr. Nana Yaa Koram, MD Dr. Paul Masci, DO Melinda Salyers, SENIOR MEDIA PLANNER-C Yanelis Rodriguez NP-C Tissues: Duodenum, NOS Procedures: MSH2 (add) MLH-1 (add) MSH6 (add) Anti-PMS2 (add) CK20 (add) BUTTS-2 (add) KI-67 (add) P53 (add) CDX2 (add) CK7 (initial) PHYSICIAN & INSTITUTION [facility] [address] [place] [id number] SPECIMEN INFORMATION: Tissue Source: Duodenal ulcer Clinical Info: Anemia, GI bleed Specimen Number: [id number] CPT code: 14094, 13823 x9 METHODOLOGY: Deparaffinized sections of prefer/formalin-fixed tissue or PAP/DQ stained slides are incubated with monoclonal/polyclonal antibodies/oligonucleotide probes. Localization is made via biotin free immunoperoxidase method. Appropriate controls are performed and reacted as expected. Results on target cell population are indicated in the following table: RESULTS: ANTIBODY / CLONE RESULT CK7 (OV-TL12/30) positive CK20 (KS20.8) negative BUTTS-2 (SP21) positive CDX2 ([id number]) positive MLH-1 (M1) positive MSH2 (25D12) positive MSH6 (44) positive PMS2 ([id number]) positive Ki-67 (30-9) positive, 70% P53 (DO-7) negative These tests were developed and their performance characteristics determined by [facility]. They may not have been cleared or approved by the U.S. Food and Drug Administration. The FDA has determined that such clearance or approval is not necessary. The above immunohistochemical/dualISH markers are ordered and reviewed by the Pathologist. INTERPRETATION: Duodenal ulcer, biopsy: Invasive adenocarcinoma. Result of Microsatellite Instability Study: Negative (no loss of mismatch protein; no microsatellite instability detected). AM:amanda 12/19/2021 Case has been reviewed in consultation with Dr. Hickey who concurs with the above diagnosis. IDC:SJ
[2021-12-14 05:45] LABS: Absolute Neutrophil Count 5.4 X10^3/uL (2.0-7.7); Basophil# 0.02 X10^3/uL; Basophil% 0.3 % (0-1); Eosinophils% 1.6 % (0-5); Hematocrit 26.3 % (37-47); Hemoglobin 8.8 g/dL (12.0-15.0); Lymphocyte % 8.1 % (19-41); Mean Corp Hgb Conc 33.5 g/dL (32-36); Mean Corpuscular Volume 89.8 fL (81-99); Monocyte# 0.11 X10^3/uL; Monocyte% 1.8 % (0-10); NRBC Flagged by Analyzer 0 % (0-5); Neutrophil # 5.41 X10^3/uL (2.7-7.7); Neutrophil % 87.7 % (47-70); POSITIVE COUNT YES; POSITIVE DIFFERENTIAL YES; Platelet Count 99 K/mm3 (150-450); RBC Distribution Width SD 63.9 fl (35.1-43.9); Red Blood Count 2.93 M/mm3 (4.2-5.4); White Blood Count 6.2 K/mm3 (4.4-11.0)
[2021-12-14 06:44] LABS: ALB/GLOB Ratio 0.6 RATIO (0.9-2.4); AST(SGOT) 88 U/L (15-37); Alanine Aminotransfer ALT/SGPT 63 U/L (13-56); Albumin, Serum 2.2 g/dL (3.2-5.0); Alkaline Phosphatase 225 U/L (45-117); Anion Gap 8 (5-15); BUN 14 mg/dL (7-18); BUN/Creat Ratio 29.8 RATIO (10-20); Calcium,Total 8.6 mg/dL (8.5-10.1); Chloride 105 mmol/L (98-107); Creatinine, Serum 0.47 mg/dL (0.55-1.02); EST Glomerular Filtration Rate 139 mL/min (>60); Est Glom Filt Rate - Afr Amer 169 mL/min (>60); Estimated Creatinine Clearance 42.08 ml/min; Globulin 3.9 g/dL (2.2-4.2); Glucose 93 mg/dL (74-106); Potassium 3.9 mmol/L (3.5-5.1); Protein, Total 6.1 g/dL (6.4-8.2); Sodium Level 137 mmol/L (136-145)
[2021-12-14 07:16] LABS: Differential Indicated SCAN CRITERIA MET
--- NOTE | 2021-12-14 07:35 | PCM.CONS.B ---
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 Her previous treatment including: Cisplatin gemcitabine and achieved partial response. She also had palliative radiation therapy to retroperitoneal lymph node metastasis for management of pain. She had additional courses of chemotherapy including FOLFIRI and FOLFOX with progression of disease. She was admitted in August after chemotherapy with intractable diarrhea and anorexia. She was seen at the [facility] for clinical trial however she was not eligible. She was referred back to us for additional palliative chemotherapy with gemcitabine and Abraxane which was started on Friday. She presented to [facility] ED on 12/13/21 with history of worsening debility, fatigue, dyspnea, worse with exertion as well as? lightheadedness/dizziness especially with positional changes with recent [facility] Hgb on Friday was 9.2 with transfusion the prior Friday. Repeat Hgb yesterday given symptoms, noted to be 6.5 prompting referral to the ED for PRBC administration. Patient denies any dark black tarry stools or hematemesis and is not on any blood thinners.? Oncology recommended patient be admitted for transfusion but also for endoscopy given concerns for possible bleeding ulcer versus bleeding from the tumor itself.? Work-up in the ED included T98.2, heart rate 97, BP 121/63, respiratory rate 13, 98% on room air, CBC with WBC 6.4, hemoglobin 6.1, MCV 97, platelet 114 with lymphopenia, BMP with sodium 135, BUN/creatinine 21/0.49, type and cross 2 u PRBC performed per ED physician.? Hemoccult testing pending upon requested evaluation of patient. [facility] Medical History? Anemia Chemotherapy induced diarrhea Former tobacco use Gallbladder cancer HTN (hypertension) Migraines Rupture of small intestine Seasonal allergies Vaginal atrophy Home Medications calcium carbonate 600 mg-vitamin D3 12.5 mcg (500 unit) capsule (Calcium 600 with Vitamin D3) 1 cap PO DAILY supplement 11/10/19 [History Last Taken 12/12/21] potassium chloride 20 mEq tablet,extended release(part/cryst) 40 meq PO TID supplement 05/18/21 [History Last Taken 12/13/21] acetaminophen 325 mg tablet 650 mg PO BID PRN Pain 12/13/21 [History Last Taken 12/12/21] losartan 25 mg tablet 25 mg PO BID@0800,2000 BP 12/13/21 [History Last Taken 12/13/21] magnesium chloride 71.5 mg (magnesium chloride) tablet,delayed release (Slow-Mag) 71.5 mg PO TID SUPPLEMENT 12/13/21 [History Last Taken 12/13/21] prochlorperazine maleate 10 mg tablet 10 mg PO Q6H PRN PRN Nausea 12/13/21 [History Last Taken 12/12/21] promethazine 25 mg tablet 25 mg PO Q4H PRN Nausea 12/13/21 [History Last Taken Unknown] Allergy/AdvReac Type Severity Reaction Status Date / Time erythromycin base Allergy Mild upset Verified 12/13/21 13:16 ? ? ? stomach ? ? Sulfa (Sulfonamide Allergy Mild dizziness, Verified 12/13/21 13:16 Antibiotics) ? ? nausea, ? sweaty ? ? diphenhydramine AdvReac ? Other Verified 12/13/21 13:16 [From Benadryl] ? Family History?(Updated 12/13/21 @ 18:[address] Ene Willingham MD) Brother Prostate cancer Drug abuse Alcohol abuseMother Hypertension HLD (hyperlipidemia) Pulmonary embolismFather Glaucoma Surgical History?(Updated 12/13/21 @ 18:[address] Ene Willingham MD) Bartholin cyst History of unilateral salpingectomy S/P ectopic S/P small bowel resection Social History? household members:? spouse Smoking Status:? Former smoker alcohol intake:? never substance use type:? does not use caffeine:? No what type of physical activity do you participate in:? walking, yoga and other details: ti kaye for balance frequency:? daily seatbelt use:? always do you feel safe at home:? Yes additional social history:? -[place] Patient works at [employer] ROS Narrative Admission Review of Systems: CONSTITUTIONAL: No weight loss, fever, chills, + weakness or fatigue. HEENT: Eyes: No visual loss, blurred vision, double vision or yellow sclerae. Ears, Nose, Throat: No hearing loss, sneezing, congestion, runny nose or sore throat. SKIN: No rash or itching, lesions, wounds. CARDIOVASCULAR: No chest pain, chest pressure or chest discomfort, palpitations, edema, orthopnea, syncopal events. RESPIRATORY: + shortness of breath, No cough or sputum, wheezing, hemoptysis. GASTROINTESTINAL: No anorexia, nausea, vomiting or diarrhea, abdominal pain, melena, BRBPR. GENITOURINARY: No dysuria, frequency, urgency or retention. NEUROLOGICAL: No headache, dizziness, syncope, paralysis, ataxia, numbness or tingling in the extremities, focal weakness, change in bowel or bladder control, seizure. MUSCULOSKELETAL: + muscle, back pain, joint pain or stiffness. HEMATOLOGIC: + anemia, bleeding or bruising. LYMPHATICS: + enlarged nodes. No history of splenectomy. PSYCHIATRIC: No history of depression or anxiety. ENDOCRINOLOGIC: No reports of sweating, cold or heat intolerance. No polyuria or polydipsia. ALLERGIES: No history of asthma, hives, eczema or rhinitis. Vital Signs Vital Signs Vital Signs: ? 12/13/21 13:14 12/13/21 14:24 12/13/21 14:26 Temperature 98 F ? ? Temperature Source Temporal ? ? Pulse Rate 92 90 ? Respiratory Rate 16 14 ? Respiratory Effort ? ? Normal Non-Labored Respiratory Pattern ? ? Normal Blood Pressure 125/80 H ? ? Blood Pressure Mean 95 ? ? Blood Pressure Source ? ? ? Blood Pressure Position ? ? ? Blood Pressure Location ? ? ? Pulse Ox 100 99 ? Oxygen Delivery Method Room Air Room Air ? ? 12/13/21 17:08 12/13/21 17:13 Temperature ? 98.9 F Temperature Source ? Oral Pulse Rate 103 H 105 H Respiratory Rate 21 H 21 H Respiratory Effort ? ? Respiratory Pattern ? ? Blood Pressure 126/62 H 126/62 H Blood Pressure Mean 83 83 Blood Pressure Source ? Monitor Blood Pressure Position ? Semi-Fowlers Blood Pressure Location ? Right Arm Pulse Ox 98 98 Oxygen Delivery Method Room Air Room Air Weight Weight: ? 109 lb? Body Mass Index (BMI) ? 18.1? Physical Exam Narrative Physical Examination: General: Awake, alert, oriented x 3 and cooperative, seated upright in bed in no apparent distress. Skin: + Pallor, normal turgor, no icterus, no cyanosis. HEENT: AT/NC, EOMI, PERRLA, mildly dry MM, no carotid bruits or JVD noted. Lungs: Mildly diminished, greater bases, appropriate effort, no rales, ronchi or wheezing. Heart: Tachycardic with regular rhythm; no gallop, rub audible. Abdomen: Soft, thin habitus, NTTP, ND,? mildly hyperactive BS, no obvious evidence of HSM. Extremities: No cyanosis, clubbing, or edema. Neurological: Patient awake, alert, oriented as noted cognitive function intact; pupils equally reactive to light and accommodation, cranial nerves II-XII grossly normal, moving all 4 extremities, no focal deficits, strength mildly to moderately global decrease secondary to acute presentation Psychiatric: Affect appears fatigued otherwise normal, no acute evidence of depressive or anxiety feelings. Assessment & Plan Assessment/Plan (1) Thrombocytopenia: PLAN: -Probably secondary to chemotherapy and liver disease -Repeat coagulation study: PT/PTT fibrinogen -Transfuse platelet < 50,000 -SCD for DVT prophylaxis for now -Continue monitor CBC (2) Anemia requiring transfusions: PLAN: -Check stool for Hemoccult -Continue PPI IV every 12 hours -Awaiting consult from GI, EGD to rule out gastric ulcer versus tumor invasion of small bowel. (3) Gallbladder cancer: PLAN: -Status-post chemotherapy for metastatic carcinoma of the gallbladder; day 4 Abraxane gemcitabine -Proceed with chemotherapy on day 15 if no complications and her counts recover PLAN: Plan - We will follow as outpatient. -CODE STATUS was addressed. Charges/Coding Visit Charges Office Visits / Consults: 53134 IP Consult L4
[2021-12-14] MEDS: 0.9% Normal Saline 1,000 ML 100 ML IV ×2 (08:26→19:00)
[2021-12-14 08:34] LABS: Anisocytosis 1+; Platelet Estimate MOD DEC (ADEQ); Red Cell Morphology N CYTIC NORMAL (NORM C&C)
--- NOTE | 2021-12-14 10:40 | CASEMGMT ---
CARLOS ALBERTO CABEZAS Assessment: Face to Face with pt for initial transition planning/care coordination assessment. RN RAULITO introduced self and role at [facility], pt voices understanding and consents to assessment. Pt is A/O x4 and answers all questions appropriately at this time. Pt sitting up in bed with and dtr at bedside. Pt in no distress. Care providers, pharmacy, and demographics verified/updated. Admitting Dx: acute anemia PCP:Maryana Specialists:maulik Stephens Pharmacy: [facility] Insurance: [facility], [facility] [place] Prescription Benefit: yes LW/HPOA: Pt has a LW/DPOA and her DPOA is her dtr Velma Ramon. She is aware that this is not on file at [facility] and she may bring in to be scanned into her chart. LNOK: Rick Ramon, Living Arrangements: Pt lives with in a two story house with 1 step to enter. Pt reports she is I in ADL's and denies concerns at home. Transportation: Pt drives self and denies concerns with transportation. DME/HHC/SNF: Pt has a cane at home but does not use, pt denies hx of HHC or SNF stays. Pt states no concerns with going home at time of dc. Pt states no further concerns/needs. CM to follow. Advised pt to ask CM if any further question/concerns/needs arise, voices understanding. Pt Goal: Home Plan: Home
--- NOTE | 2021-12-14 11:37 | PN.HOSP_ITS ---
Subjective Subjective Patient seen and examined. SHe was admitted o/a of acute anemia due to GI bleed. She was transfused with 2 units of PRBCs. She complains of dark stools today. She denies any abdominal pain, nausea, vomiting, coffee ground emesis, fever or chills. Review of systems is otherwise negative.. She has remained hemodynami yola stable. Objective Data Objective Data Vital Signs: Vital Signs Temp Pulse Resp BP Pulse Ox O2 Del Method 98 F 92 18 149/64 H 99 Room Air 12/14/21 10:00 12/14/21 10:00 12/14/21 10:00 12/14/21 10:00 12/14/21 10:00 12/14/21 10:00 Oxygen Delivery Method Room Air Weight: 110 lb 10.753 oz Body Mass Index (BMI) 18.8 Intake & Output: Intake and Output for Last 24 Hours 12/12/21 12/13/21 12/14/21 23:59 23:59 23:59 Intake Total 910 / 910 1330 / 1330 Output Total 200 / 200 Balance 910 / 710 1130 / 1130 Lab / Micro Data Result Diagrams: 12/14/21 04:31 12/14/21 04:31 Labs: Laboratory Results - last 24 hr 12/13/21 15:20: WBC 6.4, RBC 1.97 L, Hgb 6.1 L, Hct 19.1 L, MCV 97.0, MCH 31.0, MCHC 31.9 L, RDW Std Deviation 73.8 H, RDW Coeff of Roldan 20.9 H, Plt Count 114 L, MPV 9.7, Immature Gran % (Auto) 0.500, Neut % (Auto) 89.1 H, Lymph % (Auto) 7.6 L, [place] % (Auto) 1.9, Eos % (Auto) 0.6, Baso % (Auto) 0.3, Absolute Neuts (auto) 5.7, Absolute Lymphs (auto) 0.49 L, Nucleated RBC % 0, Differential Comment SCANNED, Hypochromasia 1+, Anisocytosis 2+, Schistocytes RARE 12/13/21 15:20: Sodium 135 L, Potassium 4.3, Chloride 103, Carbon Dioxide 25.0, Anion Gap 7, BUN 21 H, Creatinine 0.49 L, Estim Creat Clear Calc 41.44, Est GFR (MDRD) Af Amer 161, Est GFR (MDRD) Non-Af 133, BUN/Creatinine Ratio 43.0 H, Glucose 94, Calcium 8.8 12/13/21 15:20: WBC Cancelled, Corrected WBC Cancelled, RBC Cancelled, Hgb Cancelled, Hct Cancelled, MCV Cancelled, MCH Cancelled, MCHC Cancelled, RDW Std Deviation Cancelled, RDW Coeff of Roldan Cancelled, Plt Count Cancelled, MPV Cancelled, Immature Gran % (Auto) Cancelled, Neut % (Auto) Cancelled, Lymph % (Auto) Cancelled, [place] % (Auto) Cancelled, Eos % (Auto) Cancelled, Baso % (Auto) Cancelled, Absolute Neuts (auto) Cancelled, Absolute Lymphs (auto) Cancelled, Total Counted Cancelled, Neutrophils % (Manual) Cancelled, Band Neutrophils % Cancelled, Lymphocytes % (Manual) Cancelled, Monocytes % (Manual) Cancelled, Eosinophils % (Manual) Cancelled, Basophils % (Manual) Cancelled, Metamyelocytes % Cancelled, Myelocytes % Cancelled, Promyelocytes % Cancelled, Blast Cells % Cancelled, Plasma Cell % (Manual) Cancelled, Other Cells % Cancelled, Nucleated RBC % Cancelled, Nucleated RBCs/100 WBC Cancelled, Differential Comment Cancelled, Diff Path Review Cancelled, Hypersegmented Neuts Cancelled, Atypical Lymphocytes Cancelled, Reactive Lymphocytes Cancelled, Smudge Cells Cancelled, Toxic Granulation Cancelled, Toxic Vacuolation Cancelled, Dohle Bodies Cancelled, Mj Rods Cancelled, Platelet Estimate Cancelled, Plt Morphology Comment Cancelled, RBC Morphology Cancelled, Polychromasia Cancelled, Hypochromasia Cancelled, Poikilocytosis Cancelled, Basophilic Stippling Cancelled, Anisocytosis Cancelled, Microcytosis Cancelled, Macrocytosis Cancelled, Spherocytes Cancelled, Sickle Cells Cancelled, Target Cells Cancelled, Tear Drop Cells Cancelled, Ovalocytes Cancelled, Stomatocytes Cancelled, Renteria-Conroy Bodies Cancelled, [place] Cells Cancelled, Bite Cells Cancelled, Crenated Cell Cancelled, Acanthocytes (Spur) Cancelled, Rouleaux Cancelled, Schistocytes Cancelled 12/13/21 15:20: Blood Type O POSITIVE, Antibody Screen NEGATIVE, Crossmatch See Detail 12/13/21 15:20: Phosphorus 3.0, Magnesium 1.9, Total Bilirubin 0.70, Direct Bilirubin 0.21, AST 103 H, ALT 70 H, Alkaline Phosphatase 207 H, Total Protein 6.3 L, Albumin 2.3 L, Globulin 4.0 12/13/21 23:20: Hgb 9.1 L, Hct 27.5 L 12/14/21 04:31: WBC 6.2, RBC 2.93 L, Hgb 8.8 L, Hct 26.3 L, MCV 89.8 D, MCH 30.0, MCHC 33.5 D, RDW Std Deviation 63.9 H, RDW Coeff of Rold[place] 20.0 H, Plt Count 99 L, MPV 10.0, Immature Gran % (Auto) 0.500, Neut % (Auto) 87.7 H, Lymph % (Aut o) 8.1 L, [place] % (Auto) 1.8, Eos % (Auto) 1.6, Baso % (Auto) 0.3, Absolute Neuts (auto) 5.4, Absolute Lymphs (auto) 0.50 L, Nucleated RBC % 0, Differential Comment , Platelet Estimate MOD DEC, RBC Morphology N CYTIC, Anisocytosis 1+ 12/14/21 04:31: Sodium 137, Potassium 3.9, Chloride 105, Carbon Dioxide 24.0, Anion Gap 8, BUN 14, Creatinine 0.47 L, Estim Creat Clear Calc 42.08, Est GFR (MDRD) Af Amer 169, Est GFR (MDRD) Non-Af 139, BUN/Creatinine Ratio 29.8 H, Glucose 93, Calcium 8.6, Total Bilirubin 2.10 H, AST 88 H, ALT 63 H, Alkaline Phosphatase 225 H, Total Protein 6.1 L, Albumin 2.2 L, Globulin 3.9, Albumin/Globulin Ratio 0.6 L Micro: Microbiology 12/13/21 17:30 Stool Stool Occult Blood (LUIS) - Final Physical Exam Const alert, oriented x3 and no apparent distress HEENT head/scalp atraumatic, moist oral mucous membranes and oropharynx normal Head and Scalp: normocephalic Mouth: oral and palatal mucosa normal Eyes PERRL, EOMs intact bilaterally and conjunctivae normal Neck no lymphadenopathy, supple and no JVD Resp normal respiratory effort, no retractions, no use of accessory muscles and clear to auscultation bilaterally Cardio regular rate, regular rhythm, S1 normal heart sound, S2 normal heart sound and no murmurs GI normal to inspection, nondistended, normoactive bowel sounds, soft to palpation, non-tender and non-distended Extremity normal to inspection, full ROM and no clubbing, cyanosis or edema General Extremity: edema Neuro oriented x3, CN's II-XII intact bilaterally, moves all extremities and no focal motor deficits Sensorium / Orientation: awake and alert Motor Exam: strength 5/5 throughout Psych Mood & Affect: anxious Assessment & Plan Assessment/Plan (1) Thrombocytopenia: (2) Anemia requiring transfusions: PLAN: Plan #Acute on chronic anemia * due to probable acute GI bleed. * still having dark stools * hb was 6.1 on admission, and was transfused with 2 units of PRBCs * GI consulted. Awaiting evaluation * on IV pantoprazole drip * currently NPO * #Stage IV metastatic gallbladder carcinoma * has mets to the liver * oncology on board. Undergoing chemotherapy * #THrombocytopenia * likely chronic due to chemotherapy and cancer * trend platelets. Platelets are 99 today * #Hypertension; on losartan. Hydralazine prn DVT prophylaxis: SCDs. no anticoagulation o/a of acute on chronic anemia Code status: full code Charges/Coding Visit Charges Inpatient E&M: 61293 Subs Hosp L3
[2021-12-14] MEDS: Lactated Ringers 1,000 ML 15 ML IV (15:05)
--- NOTE | 2021-12-14 16:15 | EGD_PTH ---
PATIENT: JENNY RAZA LOC: MS3 U#:[id number] AGE/SX: 71/F ROOM: MS305 RE12/13/[address]: Dr. Jossy Tolbert MD : 1950 BED: 1 DIS: 12/18/2021 SPEC #: [id number] RECD: 12/14/21 17:53 STATUS: IGNACIO RECassia #: [id number] MYA: 12/14/21 16:[address]: Michael Walsh DEPT: SURGICAL PATHOLOGY RECD BY: Arlen Moon ENTERED: 12/17/21 08:03 SP TYPE: EGD BIOPSY OTHR DR: Deborah Walsh, PIE CHEF-C MD Dr. Ene Brunson MD Dr. Chitra Ganta, MD Dr. Drew Abramovich, MD Dr. David R Lance, DO Dr. Elnora Spradling, MD Dr. Jodi Hannan, MD Dr. Lapman Lun, MD Dr. Mir Ali, MD Dr. Nana Yaa Koram, MD Dr. Paul Masci, DO Melinda Salyers, NP-KASEY Helm Tissues: Duodenum, NOS Procedures: Surgery Specimen Level IV HEADER OPERATION: EGD with epinephrine injection and cautery (MAC) PRE-OP DIAGNOSIS: Anemia, GI bleed TISSUE SUBMITTED: Duodenal ulcer MICROSCOPIC DIAGNOSIS Duodenal ulcer, biopsy: Invasive well differentiated adenocarcinoma. See comment. AM:amanda 12/18/2021 COMMENT Immunohistochemistry ([id number]) supports the above diagnosis. Case has been reviewed in consultation with Dr. Hickey who concurs with the above diagnosis. DAVIAN:VAIBHAV MICROSCOPIC DESCRIPTION Slides are reviewed. GROSS DESCRIPTION Received in fixative is one container labeled with the patient's name and designated duodenal ulcer. The specimen consists of multiple irregular fragments of light bateman soft tissue that in aggregate measure 2 x 0.5 x 0.1 cm. The specimen is totally submitted in one cassette. / VAIBHAV:amanda 12/17/2021 TC:0 CPT: 48839, 01073
[2021-12-14] MEDS: 0.9% Normal Saline (Pres. free 10 ML Vial (17:27)
[2021-12-14] MEDS: Epinephrine (1 mg/ml) 1 MG/ML VIAL (17:27)
--- NOTE | 2021-12-14 17:54 | OP.EGD_ITS ---
Patient Name: Courtney Ramon Procedure Date: 12/14/2021 4:37 PM Date of : 1950 Age: 71 Procedure: Upper GI endoscopy Indications: Melena Providers: Michael Walsh DO Medicines: Monitored Anesthesia Care Patient Profile: This is a 71 year old female. Refer to note in patient chart for documentation of history and physical. Patient has symptoms of acute epigastric abdominal pain and acute nausea. Complications: No immediate complications. Procedure: Pre-Anesthesia Assessment: - Prior to the procedure, a History and Physical was performed, and patient medications and allergies were reviewed. The risks and benefits of the procedure and the sedation options and risks were discussed with the patient. All questions were answered and informed consent was obtained. Patient identification and proposed procedure were verified by the physician. Mental Status Examination: normal. Airway Examination: normal oropharyngeal airway and neck mobility. Respiratory Examination: clear to auscultation. CV Examination: normal. Prophylactic Antibiotics: The patient does not require prophylactic antibiotics. Prior Anticoagulants: The patient has taken no previous anticoagulant or antiplatelet agents. ASA Grade Assessment: II - A patient with mild systemic disease. After reviewing the risks and benefits, the patient was deemed in satisfactory condition to undergo the procedure. The anesthesia plan was to use monitored anesthesia care (MAC). Immediately prior to administration of medications, the patient was re-assessed for adequacy to receive sedatives. The heart rate, respiratory rate, oxygen saturations, blood pressure, adequacy of pulmonary ventilation, and response to care were monitored throughout the procedure. The physical status of the patient was re-assessed after the procedure. After obtaining informed consent, the endoscope was passed under direct vision. Throughout the procedure, the patient's blood pressure, pulse, and oxygen saturations were monitored continuously. The gastroscope was introduced through the mouth, and advanced to the second part of duodenum. The upper GI endoscopy was accomplished without difficulty. The patient tolerated the procedure well. Scope In: 4:47:09 PM Scope Out: 5:40:02 PM Total Procedure Duration Time 0 hours 52 minutes 53 seconds Findings: The examined esophagus was normal. A small hiatal hernia was present. No other significant abnormalities were identified in a careful examination of the stomach. One spurting cratered duodenal ulcer with a visible vessel was found in the duodenal bulb. The lesion was 21 mm in largest dimension. Area was successfully injected with 9 mL of a 1:10,000 solution of epinephrine for hemostasis. Coagulation for hemostasis using heater probe was successful. Estimated blood loss was minimal. Biopsies were taken with a cold forceps for histology. Verification of patient identification for the specimen was done. Estimated blood loss was minimal. Impression: - Normal esophagus. - Small hiatal hernia. - One spurting duodenal ulcer with a visible vessel. Injected. Treated with a heater probe. Biopsied. Recommendation: - Return patient to hospital [facility] for ongoing care. - Administer an IV bolus of 50 micrograms of octreotide followed by an infusion of 50 micrograms per hour for 1 day. - Give Protonix (pantoprazole): initiate therapy with 80 mg IV bolus, then 8 mg/hr IV by continuous infusion for 1 day. - Continue present medications. - The patient has taken no previous anticoagulant or antiplatelet agents. - No aspirin, ibuprofen, naproxen, or other non-steroidal anti-inflammatory drugs. Procedure Code(s): --- Professional --- 87216, 59, Esophagogastroduodenoscopy, flexible, transoral; with control of bleeding, any method 95860, 51, Esophagogastroduodenoscopy, flexible, transoral; with biopsy, single or multiple CPT copyright 2017 [employer]. All rights reserved. The codes documented in this report are preliminary and upon clamp truck driver review may be revised to meet current compliance requirements. Michael Walsh DO 12/14/2021 5:53:32 PM This report has been signed electronically. Number of Addenda: 0 Note Initiated On: 12/14/2021 4:37 PM
--- NOTE | 2021-12-14 17:54 | OP.CCLET_ITS ---
12/14/2021 Unique Mijares [address] [id number] Re : Upper GI endoscopy procedure for Courtney Ramon Dear Dr. Mijares This procedure was performed on Tuesday, December 14, 2021. My impressions and recommendations are as follows: Impressions : - Normal esophagus. - Small hiatal hernia. - One spurting duodenal ulcer with a visible vessel. Injected. Treated with a heater probe. Biopsied. Recommendations : - Return patient to hospital [facility] for ongoing care. - Administer an IV bolus of 50 micrograms of octreotide followed by an infusion of 50 micrograms per hour for 1 day. - Give Protonix (pantoprazole): initiate therapy with 80 mg IV bolus, then 8 mg/hr IV by continuous infusion for 1 day. - Continue present medications. - The patient has taken no previous anticoagulant or antiplatelet agents. - No aspirin, ibuprofen, naproxen, or other non-steroidal anti-inflammatory drugs. My findings are described in the full procedure note, which is enclosed. If I can be of further assistance, please feel free to contact me at . Sincerely, Michael Walsh, 12/14/2021 5:53:32 PM This report has been signed electronically.
--- NOTE | 2021-12-14 18:24 | NURSING ---
Compatibility of Octreotide and Pantoprazole discussed with Mercedes in pharmacy and she states these two medications (based on the concentration of the meds being given) are compatible.
[2021-12-14] MEDS: Ondansetron 4 MG/2 ML Vial IV (20:03)
[2021-12-14] MEDS: 0.9% Saline Lock 10 ML Syringe IV (20:03)
[2021-12-14] MEDS: Acetaminophen 325 MG Tablet 650 MG PO (20:38)
[2021-12-14] MEDS: Potassium Chloride Oral Tablet 20 MEQ 40 MEQ PO (21:40)
[2021-12-14] MEDS: Losartan Potassium 25 MG Tablet PO (21:40)
[2021-12-15] VITALS (11 sets, daily range): BP systolic 137–153; BP diastolic 69–87; PULSE 71–86; RESP 16–18; TEMP 36.6–36.9; O2SAT 92–100
[2021-12-15] MEDS: Acetaminophen 325 MG Tablet 650 MG PO (03:39)
[2021-12-15] MEDS: Ondansetron 4 MG/2 ML Vial IV (03:39)
[2021-12-15] MEDS: 0.9% Saline Lock 10 ML Syringe IV (03:40)
[2021-12-15] MEDS: 0.9% Normal Saline 1,000 ML 100 ML IV ×2 (05:07→13:47)
[2021-12-15] MEDS: Potassium Chloride Oral Tablet 20 MEQ 40 MEQ PO ×2 (06:37→20:38)
[2021-12-15 06:56] LABS: Absolute Lymphocyte Count 0.71 X10^3/uL (0.83-4.51); Absolute Neutrophil Count 3.7 X10^3/uL (2.0-7.7); Basophil# 0.03 X10^3/uL; Basophil% 0.6 % (0-1); Eosinophil# 0.08 X10^3/uL; Eosinophils% 1.7 % (0-5); Hematocrit 27.3 % (37-47); Hemoglobin 9.1 g/dL (12.0-15.0); Lymphocyte # 0.71 X10^3/ul (0.83-4.51); Lymphocyte % 15.2 % (19-41); Mean Corp Hgb Conc 33.3 g/dL (32-36); Mean Corpuscular Volume 90.1 fL (81-99); Monocyte# 0.12 X10^3/uL; Monocyte% 2.6 % (0-10); NRBC Flagged by Analyzer 0 % (0-5); Neutrophil # 3.71 X10^3/uL (2.7-7.7); Neutrophil % 79.5 % (47-70); POSITIVE COUNT YES; POSITIVE MORPHOLOGY YES; Platelet Count 89 K/mm3 (150-450); RBC Distribution Width CV 20.1 % (11.6-14.6); RBC Distribution Width SD 65.4 fl (35.1-43.9); Red Blood Count 3.03 M/mm3 (4.2-5.4); White Blood Count 4.7 K/mm3 (4.4-11.0)
[2021-12-15 07:13] LABS: Anion Gap 7 (5-15); BUN 11 mg/dL (7-18); BUN/Creat Ratio 16.4 RATIO (10-20); Calcium,Total 8.5 mg/dL (8.5-10.1); Chloride 104 mmol/L (98-107); Creatinine, Serum 0.67 mg/dL (0.55-1.02); EST Glomerular Filtration Rate 93 mL/min (>60); Est Glom Filt Rate - Afr Amer 112 mL/min (>60); Estimated Creatinine Clearance 42.33 ml/min; Glucose 126 mg/dL (74-106); Potassium 3.8 mmol/L (3.5-5.1); Sodium Level 137 mmol/L (136-145)
[2021-12-15 07:28] LABS: Anisocytosis RARE; Differential Indicated SCAN CRITERIA MET; Platelet Estimate SLT DEC (ADEQ)
[2021-12-15] MEDS: Losartan Potassium 25 MG Tablet PO ×2 (09:59→20:37)
--- NOTE | 2021-12-15 10:07 | PN.HOSP_ITS ---
Subjective Subjective Patient seen and examined. She had no complaints today and said she felt much better today. She had EGD which showed duodenal ulcer with a bleeding vessel, which was treated with a heater probe. She denied any abdominal pain, fever, chills, chest pain, palpitations or any other symptoms. hb today is 9.1 Objective Data Objective Data Vital Signs: Vital Signs Temp Pulse Resp BP Pulse Ox O2 Del Method 98.5 F 85 16 145/79 H 97 Room Air 12/15/21 05:28 12/15/21 06:00 12/15/21 05:28 12/15/21 05:28 12/15/21 05:28 12/15/21 05:28 Oxygen Delivery Method Room Air Weight: 111 lb 5.335 oz Body Mass Index (BMI) 18.1 Intake & Output: Intake and Output for Last 24 Hours 12/13/21 12/14/21 12/15/21 23:59 23:59 23:59 Intake Total 910 / 910 2168.75 / 2168.75 1090.5 / 1090.5 Output Total 800 / 800 Balance 910 / 710 1368.75 / 1368.75 1090.5 / 1090.5 Lab / Micro Data Result Diagrams: 12/15/21 06:16 12/15/21 06:16 Labs: Laboratory Results - last 24 hr 12/15/21 06:16: WBC 4.7, RBC 3.03 L, Hgb 9.1 L, Hct 27.3 L, MCV 90.1, MCH 30.0, MCHC 33.3, RDW Std Deviation 65.4 H, RDW Coeff of [place]old[place] 20.1 H, Plt Count 89 L, MPV 10.0, Immature Gran % (Auto) 0.400, Neut % (Auto) 79.5 H, Lymph % (Auto) 15.2 L, [place] % (Auto) 2.6, Eos % (Auto) 1.7, Baso % (Auto) 0.6, Absolute Neuts (auto) 3.7, Absolute Lymphs (auto) 0.71 L, Nucleated RBC % 0, Platelet Estimate SLT DEC, Anisocytosis RARE 12/15/21 06:16: Sodium 137, Potassium 3.8, Chloride 104, Carbon Dioxide 26.0, Anion Gap 7, BUN 11, Creatinine 0.67, Estim Creat Clear Calc 42.33, Est GFR (MDRD) Af Amer 112, Est GFR (MDRD) Non-Af 93, BUN/Creatinine Ratio 16.4, Glucose 126 H, Calcium 8.5 Micro: Microbiology 12/13/21 17:30 Stool Stool Occult Blood (LUIS) - Final Physical Exam Const alert, oriented x3 and no apparent distress HEENT head/scalp atraumatic, moist oral mucous membranes and oropharynx normal Head and Scalp: normocephalic Mouth: oral and palatal mucosa normal Eyes PERRL, EOMs intact bilaterally and conjunctivae normal Neck no lymphadenopathy, supple and no JVD Resp normal respiratory effort, no retractions, no use of accessory muscles and clear to auscultation bilaterally Cardio regular rate, regular rhythm, S1 normal heart sound, S2 normal heart sound and no murmurs GI normal to inspection, nondistended, normoactive bowel sounds, soft to palpation, non-tender and non-distended Extremity normal to inspection, full ROM and no clubbing, cyanosis or edema General Extremity: edema Neuro oriented x3, CN's II-XII intact bilaterally, moves all extremities and no focal motor deficits Sensorium / Orientation: awake and alert Motor Exam: strength 5/5 throughout Psych affect normal Assessment & Plan Assessment/Plan (1) Thrombocytopenia: (2) Anemia requiring transfusions: PLAN: Plan #Acute on chronic anemia due to bleeding duodenal ulcer * had EGD yesterday which showed bleeding duodenal ulcer which was treated with a heater proble * Hb today is 9.1. 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 Undergoing chemotherapy * #THrombocytopenia * likely chronic due to chemotherapy and cancer * trend platelets. Platelets are 89 today * will continue monitoring * #Hypertension; on losartan. Hydralazine prn DVT prophylaxis: SCDs. no anticoagulation o/a of acute on chronic anemia Code status: full code Charges/Coding Visit Charges Inpatient E&M: 84325 Subs Hosp L2
--- NOTE | 2021-12-15 11:34 | NURSING ---
called to room by pt daughter who states her mom c/o n/t to 3 fingers in right hand-see recent vitals-symptoms are now gone-pt reports having n/t in all extremities since chemo started 1 yr ago
--- NOTE | 2021-12-15 14:30 | CT_ITS ---
STUDY: CT ABDOMEN AND PELVIS WITH CONTRAST REASON FOR EXAM: Female, 71 years old. Obstructive jaundice. Patient has gallbladder cancer, getting chemo. Still has gallbladder RADIATION DOSAGE (If Supplied By Facility): CTDIvol = ( 8.19 ) mGy, DLP = ( 302.65 ) mGycm TECHNIQUE: Transaxial images were obtained from the dome of the diaphragm to the symphysis pubis without oral contrast. IV 100mL Isovue-300 was administered. Sagittal and coronal images were reconstructed. Individualized dose optimization techniques were used for this CT. COMPARISON: CT abdomen and pelvis May 21, 2021 FINDINGS: There is a small left pleural effusion new since prior study. Artery is of normal size. In the right side pericardial fat or abnormal enlarged lymph nodes with necrotic center measuring 2.6 x 1.6 cm enlarged since prior study. There is a lymph node measuring 1.4 cm and one measuring 1.5 cm. Since the prior study there is apparent inhomogeneous masslike infiltration within the right hepatic lobe with severe intrahepatic extrahepatic ductal dilatation greater than the prior study. The area of infiltration in the liver measures approximately 9.9 x 7.5 x 6.1 cm. There are multiple smaller masses in the liver especially the left hepatic lobe measuring up to 1.1 cm. There is a small structure bordering the right hepatic lobe which may represent a disease or partially collapsed focus of trapped gas possibly from the stomach. The gallbladder is not visualized. Normal spleen. There is a atrophied appearance of the tail the pancreas. There is distention of the gallbladder at the level of the common duct measuring 1.5 cm. At the cassie hepatis there is a mass that measures 5.1 x 4.5 cm. There is summation of shadows with this mass and the duodenum there is an encased or effaced appearance of the proximal left renal vein. Normal bilateral adrenal glands. Normal right kidney. Normal left kidney. There is a distended appearance of the distal stomach proximal to an area of thickening and narrowing which may be adhesed to the underside of the liver. There is a thickened appearance of the small bowel especially the second part of the duodenum. There are mildly distended loops of midline small bowel similar to the prior study. There is postoperative change within the midline and a fluid distended loop of small bowel. There is a mild to moderate amount of stool within the colon there is diverticulosis without diverticulitis. There are dense varices within the pelvis. Findings suggest narrowing of the inferior vena cava at the hepatic flexure due to probable masslike involvement. There are fluid distended loops of large bowel. Appendix is not well visualized. Normal abdominal aorta. Normal inferior vena cava. 2 numerous to count enlarged retroperitoneal lymph nodes. On the right side measuring 4.6 x 2.9 cm. On the left side measuring 5.1 x 3.6 cm. There is a left-sided lymph node measuring 3.6 x 3.6 cm and a right side collection measuring 2.2 x 2.4 cm. There is free fluid in the abdomen and pelvis. There is a minimal right-sided midline fatty hernia. Normal urinary bladder. There is absence of the uterus consistent with a prior hysterectomy. There is a small umbilical hernia containing fat. There are diffuse degenerative changes of the visualized lumbar spine. CT/Abdomen/Pelvis W IV Cont ONLY IMPRESSION: Abnormal right-sided cardial retroperitoneal, cassie hepatis lymph nodes, small left effusion, large masses within the midabdomen especially in the retroperitoneum highly suspicious for metastatic disease. Large area of masslike density within the right hepatic lobe and scattered smaller masses throughout the liver highly suspicious for metastatic disease. There is intra and extra hepatic ductal dilatation the common duct is likely obstructed. In addition there are varices demonstrated within the pelvis suggesting that there may be significant narrowing of the IVC. Postoperative change in the midline small bowel mild distention similar to prior study suggesting ileus. Electronically Signed: Marcella Machado MD at 15:54 EDT ,
[2021-12-15 15:20] LABS: ALB/GLOB Ratio 0.6 RATIO (0.9-2.4); AST(SGOT) 135 U/L (15-37); Alanine Aminotransfer ALT/SGPT 111 U/L (13-56); Albumin, Serum 2.3 g/dL (3.2-5.0); Alkaline Phosphatase 509 U/L (45-117); Anion Gap 6 (5-15); BUN 12 mg/dL (7-18); Calcium,Total 8.5 mg/dL (8.5-10.1); Chloride 104 mmol/L (98-107); Creatinine, Serum 0.63 mg/dL (0.55-1.02); EST Glomerular Filtration Rate 99 mL/min (>60); Est Glom Filt Rate - Afr Amer 120 mL/min (>60); Estimated Creatinine Clearance 42.33 ml/min; Globulin 3.8 g/dL (2.2-4.2); Glucose 134 mg/dL (74-106); Potassium 4.4 mmol/L (3.5-5.1); Protein, Total 6.1 g/dL (6.4-8.2); Sodium Level 138 mmol/L (136-145)
[2021-12-15] MEDS: Pantoprazole Sodium 40 MG Tablet PO ×2 (16:27→20:39)
[2021-12-15] MEDS: Sucralfate 1 GM Tablet PO ×2 (16:27→20:37)
--- NOTE | 2021-12-15 18:44 | PN_ITS ---
Subjective Subjective Patient has been experiencing alot of nausea and abdominal discomfort. Objective Data Objective Data Vital Signs: Vital Signs Temp Pulse Resp BP Pulse Ox O2 Del Method 98.1 F 77 18 153/87 H 97 Room Air 12/15/21 17:04 12/15/21 17:04 12/15/21 17:04 12/15/21 17:04 12/15/21 17:04 12/15/21 17:04 Oxygen Delivery Method Room Air Weight: 111 lb 5.335 oz Body Mass Index (BMI) 18.1 Intake & Output: Intake and Output for Last 24 Hours 12/13/21 12/14/21 12/15/21 23:59 23:59 23:59 Intake Total 910 / 910 2168.75 / 2168.75 2988.17 / 2988.17 Output Total 800 / 800 Balance 910 / 710 1368.75 / 1368.75 2988.17 / 2988.17 Lab / Micro Data Result Diagrams: 12/16/21 05:32 12/16/21 05:32 Labs: Laboratory Results - last 24 hr 12/15/21 06:16: WBC 4.7, RBC 3.03 L, Hgb 9.1 L, Hct 27.3 L, MCV 90.1, MCH 30.0, MCHC 33.3, RDW Std Deviation 65.4 H, RDW Coeff of [place]old[place] 20.1 H, Plt Count 89 L, MPV 10.0, Immature Gran % (Auto) 0.400, Neut % (Auto) 79.5 H, Lymph % (Auto) 15.2 L, [place] % (Auto) 2.6, Eos % (Auto) 1.7, Baso % (Auto) 0.6, Absolute Neuts (auto) 3.7, Absolute Lymphs (auto) 0.71 L, Nucleated RBC % 0, Platelet Estimate SLT DEC, Anisocytosis RARE 12/15/21 06:16: Sodium 137, Potassium 3.8, Chloride 104, Carbon Dioxide 26.0, Anion Gap 7, BUN 11, Creatinine 0.67, Estim Creat Clear Calc 42.33, Est GFR (MDRD) Af Amer 112, Est GFR (MDRD) Non-Af 93, BUN/Creatinine Ratio 16.4, Glucose 126 H, Calcium 8.5 12/15/21 14:55: Sodium 138, Potassium 4.4, Chloride 104, Carbon Dioxide 28.0, Anion Gap 6, BUN 12, Creatinine 0.63, Estim Creat Clear Calc 42.33, Est GFR (MDRD) Af Amer 120, Est GFR (MDRD) Non-Af 99, BUN/Creatinine Ratio 19.0, Glucose 134 H, Calcium 8.5, Total Bilirubin 3.80 H, AST 135 H, ALT 111 H, Alkaline Phosphatase 509 H, Total Protein 6.1 L, Albumin 2.3 L, Globulin 3.8, Al bumin/Globulin Ratio 0.6 L Micro: Microbiology 12/13/21 17:30 Stool Stool Occult Blood (LUIS) - Final Radiography Diagnostic Testing: Radiology Impression Abdomen/Pelvis CT 12/15/21 14:30 IMPRESSION: Abnormal right-sided cardial retroperitoneal, cassie hepatis lymph nodes, small left effusion, large masses within the midabdomen especially in the retroperitoneum highly suspicious for metastatic disease. Large area of masslike density within the right hepatic lobe and scattered smaller masses throughout the liver highly suspicious for metastatic disease. There is intra and extra hepatic ductal dilatation the common duct is likely obstructed. In addition there are varices demonstrated within the pelvis suggesting that there may be significant narrowing of the IVC. Postoperative change in the midline small bowel mild distention similar to prior study suggesting ileus. Electronically Signed: Marcella Machado MD at 15:54 EDT Reading Location ID and State: [facility] / [place] Tel , Service support , Physical Exam Const alert, oriented x3 and no apparent distress HEENT head/scalp atraumatic, moist oral mucous membranes and oropharynx normal Head and Scalp: normocephalic Mouth: oral and palatal mucosa normal Eyes PERRL, EOMs intact bilaterally and conjunctivae normal Neck no lymphadenopathy, supple and no JVD Resp normal respiratory effort, no retractions, no use of accessory muscles and clear to auscultation bilaterally Cardio regular rate, regular rhythm, S1 normal heart sound, S2 normal heart sound and no murmurs GI normal to inspection, nondistended, normoactive bowel sounds, soft to palpation, non-tender and non-distended Extremity normal to inspection, full ROM and no clubbing, cyanosis or edema General Extremity: edema Neuro oriented x3, CN's II-XII intact bilaterally, moves all extremities and no focal motor deficits Sensorium / Orientation: awake and alert Motor Exam: strength 5/5 throughout Psych affect normal Mood & Affect: anxious Assessment & Plan Assessment/Plan (1) Gastroparesis: PLAN: Suspected gastroparesis secondary to large duodenal ulcer. I will order a CT scan abdomen and pelvis for further evaluation. (2) Obstructive jaundice: PLAN: Suspected obstructive jaundice secondary to extrinsic compression from gallbladder cancer. I will reorder LFTs and I will order a CT scan abdomen pelvis. Charges/Coding Visit Charges Inpatient E&M: 29156 Subs Hosp L2
[2021-12-15] MEDS: miSOPROStol 200 MCG Tablet PO (20:37)
[2021-12-16] VITALS (16 sets, daily range): BP systolic 121–163; BP diastolic 60–86; PULSE 65–120; RESP 16–18; TEMP 36.6–37.1; O2SAT 95–99
[2021-12-16] MEDS: Acetaminophen 325 MG Tablet 650 MG PO (00:10)
[2021-12-16] MEDS: 0.9% Normal Saline 1,000 ML 100 ML IV ×3 (00:14→20:45)
[2021-12-16] MEDS: Potassium Chloride Oral Tablet 20 MEQ 40 MEQ PO ×3 (05:20→20:57)
[2021-12-16] MEDS: miSOPROStol 200 MCG Tablet PO ×3 (05:20→20:59)
[2021-12-16 06:23] LABS: Absolute Lymphocyte Count 0.69 X10^3/uL (0.83-4.51); Absolute Neutrophil Count 1.8 X10^3/uL (2.0-7.7); Basophil# 0.01 X10^3/uL; Basophil% 0.4 % (0-1); Eosinophil# 0.04 X10^3/uL; Eosinophils% 1.5 % (0-5); Hemoglobin 7.5 g/dL (12.0-15.0); Lymphocyte # 0.69 X10^3/ul (0.83-4.51); Lymphocyte % 25.2 % (19-41); Mean Corp Hgb Conc 32.6 g/dL (32-36); Mean Corpuscular Hgb 29.9 pg (27.0-32.0); Mean Corpuscular Volume 91.6 fL (81-99); Mean Platelet Vol. 9.4 fl (6.2-12.0); Monocyte# 0.19 X10^3/uL; Monocyte% 6.9 % (0-10); NRBC Flagged by Analyzer 0 % (0-5); Neutrophil # 1.79 X10^3/uL (2.7-7.7); Neutrophil % 65.3 % (47-70); POSITIVE COUNT YES; Platelet Count 64 K/mm3 (150-450); RBC Distribution Width CV 19.5 % (11.6-14.6); RBC Distribution Width SD 64.5 fl (35.1-43.9); Red Blood Count 2.51 M/mm3 (4.2-5.4); White Blood Count 2.7 K/mm3 (4.4-11.0)
[2021-12-16 06:58] LABS: Anion Gap 6 (5-15); BUN 10 mg/dL (7-18); BUN/Creat Ratio 15.4 RATIO (10-20); Calcium,Total 8.5 mg/dL (8.5-10.1); Chloride 102 mmol/L (98-107); Creatinine, Serum 0.65 mg/dL (0.55-1.02); EST Glomerular Filtration Rate 96 mL/min (>60); Est Glom Filt Rate - Afr Amer 116 mL/min (>60); Estimated Creatinine Clearance 42.25 ml/min; Glucose 102 mg/dL (74-106); Potassium 3.4 mmol/L (3.5-5.1); Sodium Level 137 mmol/L (136-145)
[2021-12-16] MEDS: Ondansetron 4 MG/2 ML Vial IV ×2 (07:06→19:02)
--- NOTE | 2021-12-16 09:37 | PN.HOSP_ITS ---
Subjective Subjective Patient seen and examined. She complains of abdominal pain today. She had some dark stools overnight. She denies any fever, chills, nausea or vomiting and is passing gas. REview of systems is otherwise negative. Her Hb is down to 7.5 today. Objective Data Objective Data Vital Signs: Vital Signs Temp Pulse Resp BP Pulse Ox O2 Del Method 98.1 F 77 16 138/71 H 99 Room Air 12/16/21 05:23 12/16/21 05:23 12/16/21 05:23 12/16/21 05:23 12/16/21 05:23 12/16/21 05:23 Oxygen Delivery Method Room Air Weight: 111 lb 1.808 oz Body Mass Index (BMI) 18.1 Intake & Output: Intake and Output for Last 24 Hours 12/14/21 12/15/21 12/16/21 23:59 23:59 23:59 Intake Total 2168.75 / 2168.75 4339.17 / 4339.17 1210 / 1210 Output Total 800 / 800 Balance 1368.75 / 1368.75 4339.17 / 4339.17 1210 / 1210 Lab / Micro Data Result Diagrams: 12/16/21 05:32 12/16/21 05:32 Labs: Laboratory Results - last 24 hr 12/15/21 14:55: Sodium 138, Potassium 4.4, Chloride 104, Carbon Dioxide 28.0, Anion Gap 6, BUN 12, Creatinine 0.63, Estim Creat Clear Calc 42.33, Est GFR (MDRD) Af Amer 120, Est GFR (MDRD) Non-Af 99, BUN/Creatinine Ratio 19.0, Glucose 134 H, Calcium 8.5, Total Bilirubin 3.80 H, AST 135 H, ALT 111 H, Alkaline Phosphatase 509 H, Total Protein 6.1 L, Albumin 2.3 L, Globulin 3.8, Albumin/Globulin Ratio 0.6 L 12/16/21 05:32: WBC 2.7 L, RBC 2.51 L, Hgb 7.5 L, Hct 23.0 L, MCV 91.6, MCH 29.9, MCHC 32.6, RDW Std Deviation 64.5 H, RDW Coeff of [place] 19.5 H, Plt Count 64 L, MPV 9.4, Immature Gran % (Auto) 0.700, Neut % (Auto) 65.3, Lymph % (Auto) 25.2, [place] % (Auto) 6.9, Eos % (Auto) 1.5, Baso % (Auto) 0.4, Absolute Neuts (auto) 1.8 L, Absolute Lymphs (auto) 0.69 L, Nucleated RBC % 0 12/16/21 05:32: Sodium 137, Potassium 3.4 L, Chloride 102, Carbon Dioxide 29.0, Anion Gap 6, BUN 10, Creatinine 0.65, Estim Creat Clear Calc 42.25, Est GFR (MDRD) Af Amer 116, Est GFR (MDRD) Non-Af 96, BUN/Creatinine Ratio 15.4, Glucose 102, Calcium 8.5 Micro: Microbiology 12/13/21 17:30 Stool Stool Occult Blood (LUIS) - Final Radiography Diagnostic Testing: Radiology Impression Abdomen/Pelvis CT 12/15/21 14:30 IMPRESSION: Abnormal right-sided cardial retroperitoneal, cassie hepatis lymph nodes, small left effusion, large masses within the midabdomen especially in the retroperitoneum highly suspicious for metastatic disease. Large area of masslike density within the right hepatic lobe and scattered smaller masses throughout the liver highly suspicious for metastatic disease. There is intra and extra hepatic ductal dilatation the common duct is likely obstructed. In addition there are varices demonstrated within the pelvis suggesting that there may be significant narrowing of the IVC. Postoperative change in the midline small bowel mild distention similar to prior study suggesting ileus. Electronically Signed: Marcella Machado MD at 15:54 EDT Reading Location ID and State: [facility] / [place] Tel , Service support , Physical Exam Const alert, oriented x3 and no apparent distress HEENT head/scalp atraumatic, moist oral mucous membranes and oropharynx normal Head and Scalp: normocephalic Mouth: oral and palatal mucosa normal Eyes PERRL, EOMs intact bilaterally and conjunctivae normal Neck no lymphadenopathy, supple and no JVD Resp normal respiratory effort, no retractions, no use of accessory muscles and clear to auscultation bilaterally Cardio regular rate, regular rhythm, S1 normal heart sound, S2 normal heart sound and no murmurs GI normal to inspection, nondistended, normoactive bowel sounds, soft to palpation, non-tender and non-distended Extremity normal to inspection, full ROM and no clubbing, cyanosis or edema General Extremity: edema Neuro oriented x3, CN's II-XII intact bilaterally, moves all extremities and no focal motor deficits Sensorium / Orientation: awake and alert Motor Exam: strength 5/5 throughout Psych affect normal Mood & Affect: anxious Assessment & Plan Assessment/Plan (1) Thrombocytopenia: (2) Anemia requiring transfusions: PLAN: Plan #Acute on chronic anemia due to bleeding duodenal ulcer * had EGD which showed bleeding duodenal ulcer which was treated with a heater probe * Hb today is down to 7.5, from 9.1 yesterday * she is still having dark stools, which may be due to old blood now passing out, or that she is still bleeding from the duodenal ulcer * on IV pantoprazole 40mg bid. Pantoprazole drip and octreotide drip were discontinued yesterday * GI on board. 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 * CT of the abdomen and pelvis done showed an abnormal right-sided cardiac per retroperitoneal and cassie hepatis lymph nodes with small left effusion and large masses within the abdomen especially in the retroperitoneum highly suspicious with metastatic disease and large area of masslike density within the right hepatic lobe and scattered smaller masses throughout the liver suspicious for metastasis. Also has intra and extrahepatic ductal dilatation with the common bile duct likely obstructed and varices demonstrated within the pelvis suggesting with significant narrowing of the IVC. There is also evidence of iron use. * Gastroenterology on board. * oncology on board. Undergoing chemotherapy * Patient willing to discuss hospice and palliative care after she speaks to her oncologist and gastroenterology about prognosis. * #THrombocytopenia * likely chronic due to chemotherapy and cancer * trend platelets. Platelets have trended down further to 64 today. * will continue monitoring * #Pancytopenia * WBC is down to 2.7 and platelets are down to 64 hemoglobin down 7.5. This is likely related to the malignancy though the worsening anemia is also likely related to the peptic ulcer. * #Hypertension; on losartan. Hydralazine prn DVT prophylaxis: SCDs. no anticoagulation o/a of acute on chronic anemia Code status: full code Charges/Coding Visit Charges Inpatient E&M: 76675 Subs Hosp L3
[2021-12-16] MEDS: LORazepam 0.5 MG Tablet PO (10:44)
[2021-12-16] MEDS: Pantoprazole Sodium 40 MG Tablet PO ×2 (10:45→20:57)
[2021-12-16] MEDS: Sucralfate 1 GM Tablet PO ×3 (10:45→20:57)
[2021-12-16] MEDS: Losartan Potassium 25 MG Tablet PO ×2 (10:45→20:57)
--- NOTE | 2021-12-16 11:12 | PN_ITS ---
Subjective Subjective Patient still continues to be nauseous and is experiencing some bloating. She denies any bright red blood per rectum or melanotic stools. She denies any chest pain or shortness of breath. Objective Data Objective Data Vital Signs: Vital Signs Temp Pulse Resp BP Pulse Ox O2 Del Method 98.1 F 77 16 138/71 H 99 Room Air 12/16/21 05:23 12/16/21 05:23 12/16/21 05:23 12/16/21 05:23 12/16/21 05:23 12/16/21 05:23 Oxygen Delivery Method Room Air Weight: 111 lb 1.808 oz Body Mass Index (BMI) 18.1 Intake & Output: Intake and Output for Last 24 Hours 12/14/21 12/15/21 12/16/21 23:59 23:59 23:59 Intake Total 2168.75 / 2168.75 4339.17 / 4339.17 1210 / 1210 Output Total 800 / 800 Balance 1368.75 / 1368.75 4339.17 / 4339.17 1210 / 1210 Lab / Micro Data Result Diagrams: 12/16/21 05:32 12/16/21 05:32 Labs: Laboratory Results - last 24 hr 12/13/21 15:20: Crossmatch See Detail 12/15/21 14:55: Sodium 138, Potassium 4.4, Chloride 104, Carbon Dioxide 28.0, Anion Gap 6, BUN 12, Creatinine 0.63, Estim Creat Clear Calc 42.33, Est GFR (MDRD) Af Amer 120, Est GFR (MDRD) Non-Af 99, BUN/Creatinine Ratio 19.0, Glucose 134 H, Calcium 8.5, Total Bilirubin 3.80 H, AST 135 H, ALT 111 H, Alkaline Phosphatase 509 H, Total Protein 6.1 L, Albumin 2.3 L, Globulin 3.8, Albumin/Globulin Ratio 0.6 L 12/16/21 05:32: WBC 2.7 L, RBC 2.51 L, Hgb 7.5 L, Hct 23.0 L, MCV 91.6, MCH 29.9, MCHC 32.6, RDW Std Deviation 64.5 H, RDW Coeff of [place]oldan 19.5 H, Plt Count 64 L, MPV 9.4, Immature Gran % (Auto) 0.700, Neut % (Auto) 65.3, Lymph % (Auto) 25.2, [place] % (Auto) 6.9, Eos % (Auto) 1.5, Baso % (Auto) 0.4, Absolute Neuts (auto) 1.8 L, Absolute Lymphs (auto) 0.69 L, Nucleated RBC % 0 12/16/21 05:32: Sodium 137, Potassium 3.4 L, Chloride 102, Carbon Dioxide 29.0, Anion Gap 6, BUN 10, Creatinine 0.65, Estim Creat Clear Calc 42.25, Est GFR (MDRD) Af Amer 116, Est GFR (MDRD) Non-Af 96, BUN/Creatinine Ratio 15.4, Glucose 102, Calcium 8.5 Micro: Microbiology 12/13/21 17:30 Stool Stool Occult Blood (LUIS) - Final Radiography Diagnostic Testing: Radiology Impression Abdomen/Pelvis CT 12/15/21 14:30 IMPRESSION: Abnormal right-sided cardial retroperitoneal, cassie hepatis lymph nodes, small left effusion, large masses within the midabdomen especially in the retroperitoneum highly suspicious for metastatic disease. Large area of masslike density within the right hepatic lobe and scattered smaller masses throughout the liver highly suspicious for metastatic disease. There is intra and extra hepatic ductal dilatation the common duct is likely obstructed. In addition there are varices demonstrated within the pelvis suggesting that there may be significant narrowing of the IVC. Postoperative change in the midline small bowel mild distention similar to prior study suggesting ileus. Electronically Signed: Marcella Machado MD at 15:54 EDT Reading Location ID and State: [facility] / [place] Tel , Service support , Physical Exam Const alert, oriented x3 and no apparent distress HEENT head/scalp atraumatic, moist oral mucous membranes and oropharynx normal Head and Scalp: normocephalic Mouth: oral and palatal mucosa normal Eyes PERRL, EOMs intact bilaterally and conjunctivae normal Neck no lymphadenopathy, supple and no JVD Resp normal respiratory effort, no retractions, no use of accessory muscles and clear to auscultation bilaterally Cardio regular rate, regular rhythm, S1 normal heart sound, S2 normal heart sound and no murmurs GI normal to inspection, nondistended, normoactive bowel sounds, soft to palpation, non-tender and non-distended Extremity normal to inspection, full ROM and no clubbing, cyanosis or edema General Extremity: edema Neuro oriented x3, CN's II-XII intact bilaterally, moves all extremities and no focal motor deficits Sensorium / Orientation: awake and alert Motor Exam: strength 5/5 throughout Psych affect normal Mood & Affect: anxious Assessment & Plan Assessment/Plan (1) Thrombocytopenia: PLAN: Thrombocytopenia likely secondary to chemotherapy. However hematology and oncology is on the case (2) Anemia requiring transfusions: PLAN: . Her anemia I think is multifactorial due to acute on chronic GI blood loss. I do not think she is bleeding anymore from the duodenal ulcer at this time. She is being maintained on PPI therapy twice a day, sulcal fate therapy 3 times a day and misoprostol 3 times a day. (3) Gallbladder cancer: PLAN: I repeated her CT scan and she shows worsening lymphadenopathy and metastasis to the liver. She also has what appears to be some extrinsic compression on the IVC causing pelvic varicosities and abdominal varicosities. (4) GI bleed: PLAN: GI bleed secondary to duodenal ulcer. I do not think she needs repeat endoscopy at this time unless her hemoglobin continues to go down. Recommend iron transfusions x2 along with the packed red blood cells x2. (5) Obstructive jaundice: PLAN: Obstructive jaundice likely secondary to extrinsic compression of the distal common bile duct. It also could be from infiltrative disease into the small bowel. At this time patient does not want any endoscopic treatment. Her bilirubin is up to 3.8 and we discussed the risk and benefits of obstructive jaundice. (6) Ileus: PLAN: She is experiencing a mild ileus likely secondary to swelling from lymphedema without clear obstruction. I will put her on azithromycin 500 mg IV once a day to hopefully help the bowels move is much as possible. I would avoid narcotics if possible and encourage movement. (7) Gastroparesis: PLAN: She has a mild gastric outlet obstruction secondary to a large duodenal bulb ulcer. I will put her on metoclopramide 5 mg every 6 hours. Risk and benefits of metoclopramide therapy were discussed with the patient. Charges/Coding Visit Charges Inpatient E&M: 30922 Subs Hosp L3
[2021-12-16] MEDS: Metoclopramide 10 MG/2 ML Vial 5 MG IV ×2 (13:50→17:07)
[2021-12-17] VITALS (12 sets, daily range): BP systolic 116–143; BP diastolic 66–78; PULSE 68–85; RESP 14–18; TEMP 36.8–37.1; O2SAT 96–100
[2021-12-17] MEDS: Metoclopramide 10 MG/2 ML Vial 5 MG IV ×4 (00:43→17:26)
[2021-12-17] MEDS: 0.9% Saline Lock 10 ML Syringe IV ×2 (00:44→06:09)
[2021-12-17] MEDS: 0.9% Normal Saline 1,000 ML 100 ML IV (00:47)
[2021-12-17 06:06] LABS: Absolute Lymphocyte Count 0.82 X10^3/uL (0.83-4.51); Absolute Neutrophil Count 4.4 X10^3/uL (2.0-7.7); Basophil# 0.01 X10^3/uL; Basophil% 0.2 % (0-1); Eosinophil# 0.02 X10^3/uL; Eosinophils% 0.3 % (0-5); Hematocrit 28.6 % (37-47); Hemoglobin 9.9 g/dL (12.0-15.0); Lymphocyte # 0.82 X10^3/ul (0.83-4.51); Lymphocyte % 13.7 % (19-41); Mean Corpuscular Hgb 30.7 pg (27.0-32.0); Mean Corpuscular Volume 88.5 fL (81-99); Mean Platelet Vol. 9.7 fl (6.2-12.0); Monocyte# 0.66 X10^3/uL; Monocyte% 11.1 % (0-10); NRBC Flagged by Analyzer 0 % (0-5); Neutrophil # 4.37 X10^3/uL (2.7-7.7); Neutrophil % 73.2 % (47-70); POSITIVE COUNT YES; Platelet Count 42 K/mm3 (150-450); RBC Distribution Width CV 17.3 % (11.6-14.6); RBC Distribution Width SD 55.1 fl (35.1-43.9); Red Blood Count 3.23 M/mm3 (4.2-5.4)
[2021-12-17] MEDS: Potassium Chloride Oral Tablet 20 MEQ 40 MEQ PO ×3 (06:11→21:12)
[2021-12-17] MEDS: miSOPROStol 200 MCG Tablet PO ×3 (06:13→21:13)
[2021-12-17 06:28] LABS: Anion Gap 7 (5-15); BUN 14 mg/dL (7-18); BUN/Creat Ratio 24.1 RATIO (10-20); Calcium,Total 8.5 mg/dL (8.5-10.1); Chloride 103 mmol/L (98-107); Creatinine, Serum 0.58 mg/dL (0.55-1.02); EST Glomerular Filtration Rate 109 mL/min (>60); Est Glom Filt Rate - Afr Amer 132 mL/min (>60); Glucose 91 mg/dL (74-106); Sodium Level 138 mmol/L (136-145)
[2021-12-17 07:02] LABS: Differential Indicated SCAN CRITERIA MET
[2021-12-17 07:03] LABS: Anisocytosis 1+
[2021-12-17 07:04] LABS: Platelet Estimate MKD DEC (ADEQ)
--- NOTE | 2021-12-17 07:51 | PN.HOSP_ITS ---
Subjective Subjective Follow-up on GI bleed/metastatic gallbladder CA: Patient was seen and examined. She had lots of anxiety overnight. Her daughter stayed overnight. She also received a couple doses of Ativan to help. Patient stated that she used to have Ativan as needed before chemotherapy. She is experiencing a lot of anxiety. Denies any abdominal pain or nausea or vomiting. She has been ambulating around the unit. Objective Data Objective Data Vital Signs: Vital Signs Temp Pulse Resp BP Pulse Ox O2 Del Method 98.5 F 76 18 133/66 H 96 Room Air 12/17/21 06:05 12/17/21 06:05 12/17/21 06:05 12/17/21 06:05 12/17/21 06:05 12/17/21 06:13 Oxygen Delivery Method Room Air Weight: 50.7 kg Body Mass Index (BMI) 18.1 Intake & Output: Intake and Output for Last 24 Hours 12/15/21 12/16/21 12/17/21 23:59 23:59 23:59 Intake Total 4339.17 / 4339.17 5153.34 / 5153.34 503.33 / 503.33 Balance 4339.17 / 4339.17 5153.34 / 5153.34 503.33 / 503.33 Lab / Micro Data Result Diagrams: 12/17/21 05:27 12/17/21 05:27 Labs: Laboratory Results - last 24 hr 12/13/21 15:20: Crossmatch See Detail 12/13/21 15:20: Crossmatch See Detail 12/17/21 05:27: WBC 6.0, RBC 3.23 L, Hgb 9.9 L, Hct 28.6 L, MCV 88.5, MCH 30.7, MCHC 34.6 D, RDW Std Deviation 55.1 H, RDW Coeff of Roldan 17.3 H, Plt Count 42 L* , MPV 9.7, Immature Gran % (Auto) 1.500 H, Neut % (Auto) 73.2 H, Lymph % (Auto) 13.7 L, [place] % (Auto) 11.1 H, Eos % (Auto) 0.3, Baso % (Auto) 0.2, Absolute Neuts (auto) 4.4, Absolute Lymphs (auto) 0.82 L, Nucleated RBC % 0, Diff Path Review July, Platelet Estimate MKD DEC, Anisocytosis 1+ 12/17/21 05:27: Sodium 138, Potassium 3.0 L, Chloride 103, Carbon Dioxide 28.0, Anion Gap 7, BUN 14, Creatinine 0.58, Estim Creat Clear Calc 42.50, Est GFR (MDRD) Af Amer 132, Est GFR (MDRD) Non-Af 109, BUN/Creatinine Ratio 24.1 H, Glucose 91, Calcium 8.5 Micro: Microbiology 12/13/21 17:30 Stool Stool Occult Blood (LUIS) - Final Physical Exam Narrative Physical exam: General: Alert, Oriented x3, Cooperative, appears frail, anxious HEENT: Atraumatic Oral: Moist Mucosa Neck: Supple Lungs: Clear to auscultation Cardiovascular: HS I+II, regular, no murmurs Abdomen: Bowel Sounds Present, Soft, Non Tender Extremities: No edema Skin: No rashes, No breakdown Neurological: Grossly intact Psych/Mental Status: Appropriate Assessment & Plan Assessment/Plan (1) GI bleed: (2) Obstructive jaundice: PLAN: Plan 1. Acute GI bleed secondary to acute bleeding duodenal ulcer, status post treatment with heater probe Continue on oral PPI 2. Acute on chronic anemia secondary to #1 Status post 4 units of packed RBCs Hemoglobin is 9.9 today, up from 7.5 previously Continue on oral PPI, sucralfate, misoprostol 3.Suspected gastroparesis secondary to gastric outlet obstruction from large duodenal ulcer Patient is improved on Reglan, azithromycin 4. Hypokalemia, replaced, recheck in a.m. 5. Metastatic gallbladder CA with obstructive jaundice from extrinsic compression from gallbladder cancer CT of the abdomen and pelvis on 12/15/2021 showed right-sided cardia retroperitoneal, cassie hepatis lymph nodes, small left effusion, large masses within the mid abdomen especially in the retroperitoneum suspicious for metas tatic disease. Large area of masslike density within the right hepatic lobe and scattered small masses throughout the liver suspicious of metastatic disease. On palliative chemotherapy, oncology following. Palliative care/hospice consulted 6. Pancytopenia/bi-cytopenia likely secondary to chemotherapy WBC count improved 6.0 from 2.7, hemoglobin 9.9 from 7.5, platelet count relatively decreased to 42 from 64 Oncology following, continue to trend 7. Hypertension, controlled, continue on losartan 8. DVT prophylaxis?SCDs Charges/Coding Visit Charges Inpatient E&M: 81164 Subs Hosp L2
[2021-12-17] MEDS: LORazepam 0.5 MG Tablet PO (07:56)
--- NOTE | 2021-12-17 07:56 | PCM.PN.BLA ---
Progress Note She patient is stable overall. Very anxious this morning. No rectal bleeding or melena. No abdominal pain or nausea. She was transfused again this weekend. EGD revealed a large duodenal ulcer. CT abdomen pelvis shows significant progression disease in the liver and retroperitoneal lymphadenopathy. Physical Exam Const alert and oriented x3 General Appearance: anxious Eyes no scleral icterus Neck no lymphadenopathy and supple Chest inspection of chest normal Resp clear to auscultation bilaterally Cardio regular rate and regular rhythm GI normal to inspection, nondistended, normoactive bowel sounds Extremity normal to inspection and no pedal edema Skin no rashes or lesions noted Neuro oriented x3, no focal motor deficits and no sensory deficits noted Assessment & Plan Assessment/Plan (1) Thrombocytopenia: PLAN: Thrombocytopenia secondary to chemotherapy. Transfused 1 unit phoresis platelet today because of GI bleeding (2) Anemia requiring transfusions: PLAN: anemia is multifactorial due to acute on chronic GI blood loss, chemotherapy and malignancy. No indication of active bleeding from duodenal ulcer at this time. Continue maintained on PPI therapy twice a day, sulcalfate therapy 3 times a day and misoprostol 3 times a day. (3) Gallbladder cancer: PLAN: CT scan shows worsening lymphadenopathy and metastasis to her liver. On 4th line palliative chemotherapy; we will discuss palliative care consult and possible hospice referral if she doesn't tolerate treatment. (4) GI bleed: PLAN: GI bleed secondary to duodenal ulcer. Continue iron sucrose infusion and monitor CBC. (5) Obstructive jaundice: PLAN: Obstructive jaundice likely secondary to extrinsic compression of the distal common bile duct. Unlikely further intervention will help at this point. She previously had palliative radiation therapy (6) Gastroparesis: PLAN: She has a mild gastric outlet obstruction secondary to a large duodenal bulb ulcer. Continue metoclopramide 5 mg every 6 hours. . PLAN: Plan Consult palliative care and follow-up with me next week.
[2021-12-17] MEDS: Losartan Potassium 25 MG Tablet PO ×2 (09:34→21:13)
[2021-12-17] MEDS: Pantoprazole Sodium 40 MG Tablet PO ×2 (09:34→21:13)
--- NOTE | 2021-12-17 09:53 | CASEMGMT ---
Addendum entered by Carolyne Merida 12/17/21 11:54: Hospice rep spoke to SW about pt. SW informed pt has signed with Hospice and Hospice will follow up with pt after discharge. Hospice inquiring about stent placement. SW contacted Dr. Tolbert for more details and to inform of pt signing with Hospice. Dr. Tolbert called to confirm notification. Stated pt may not be getting stent and could possibly discharge today. EHSAN Stein Original Note: Social Work SW updated by Nurse Huerta that Hospice is set to meet with pt and pt at 11 am today. VIC updated Dr. Tolbert of Hospice appt time. EHSAN Stein
[2021-12-17] MEDS: Sucralfate 1 GM Tablet PO ×3 (11:06→21:13)
[2021-12-17 11:39] LABS: Mean Corp Hgb Conc 34.6 g/dL (32-36)
[2021-12-17 12:22] LABS: AST(SGOT) 60 U/L (15-37); Alanine Aminotransfer ALT/SGPT 57 U/L (13-56); Albumin, Serum 2.1 g/dL (3.2-5.0); Alkaline Phosphatase 367 U/L (45-117); Bilirubin, Direct 0.78 mg/dL (0.00-0.30); Globulin 3.7 g/dL (2.2-4.2); Protein, Total 5.8 g/dL (6.4-8.2)
[2021-12-17] MEDS: LORazepam 0.5 MG Tablet 0.25 MG PO ×2 (13:20→19:43)
[2021-12-17 13:59] LABS: Pathologist Review Reviewed
--- NOTE | 2021-12-17 14:19 | CHAPLAIN ---
Type of Pastoral Visit _x__ Initial Visit ___ Follow-up Visit ___ On-call Visit ___ General Patient Visit ___ Spiritual Assessment ___ Family Conference ___ Bereavement ___ Rapid Response ___ Code Blue ___ Other (describe below) Pastoral Care Referral From _x__ Patient ___ Family ___ Nurse ___ Physician ___ Yarn Texturing Machine Operator ___ Home Care Physical Therapist ___ Other (describe below) Sacrament/Intervention ___ Active listening ___ Anointing ___ Christian ___ Bereavement ___ Communion ___ Mel exploration ___ ___ Life review ___ Prayer ___ Reconciliation ___ Sacrament of Sick _x__ Supportive presence ___ Wedding ___ Other (describe below) Pastoral Comments met with patient and two other family members; pt is awake and states that she does not want anything at this time; affirmation of pt's wishes and offer remains if pt should choose to desire support or presence; offer of same to family members; after visit this electroencephalographic technologist could read notes of this morning that pt and family have decided on enrolling with hospice; thus the mood of the room reflected a possible sobering and quiet mental processing;
[2021-12-18] VITALS (9 sets, daily range): BP systolic 109–146; BP diastolic 61–81; PULSE 80–93; RESP 14–16; TEMP 36.7–37.1; O2SAT 95–98
[2021-12-18] MEDS: 0.9% Saline Lock 10 ML Syringe IV ×4 (00:24→12:25)
[2021-12-18] MEDS: Metoclopramide 10 MG/2 ML Vial 5 MG IV ×3 (00:24→12:25)
[2021-12-18 04:51] LABS: Absolute Neutrophil Count 4.7 X10^3/uL (2.0-7.7); Basophil# 0.01 X10^3/uL; Basophil% 0.1 % (0-1); Eosinophil# 0.09 X10^3/uL; Eosinophils% 1.3 % (0-5); Hematocrit 25.5 % (37-47); Hemoglobin 8.7 g/dL (12.0-15.0); Lymphocyte % 14.6 % (19-41); Mean Corp Hgb Conc 34.1 g/dL (32-36); Mean Corpuscular Volume 90.7 fL (81-99); Monocyte# 0.94 X10^3/uL; Monocyte% 13.7 % (0-10); NRBC Flagged by Analyzer 0 % (0-5); Neutrophil # 4.72 X10^3/uL (2.7-7.7); Neutrophil % 68.7 % (47-70); POSITIVE COUNT YES; RBC Distribution Width CV 18.4 % (11.6-14.6); RBC Distribution Width SD 57.6 fl (35.1-43.9); Red Blood Count 2.81 M/mm3 (4.2-5.4); White Blood Count 6.9 K/mm3 (4.4-11.0)
[2021-12-18 04:57] LABS: Differential Indicated SCAN CRITERIA MET; Platelet Count 34 K/mm3 (150-450)
[2021-12-18 05:16] LABS: ALB/GLOB Ratio 0.6 RATIO (0.9-2.4); AST(SGOT) 42 U/L (15-37); Alanine Aminotransfer ALT/SGPT 44 U/L (13-56); Albumin, Serum 2.1 g/dL (3.2-5.0); Alkaline Phosphatase 341 U/L (45-117); Anion Gap 6 (5-15); BUN 15 mg/dL (7-18); BUN/Creat Ratio 24.5 RATIO (10-20); Calcium,Total 8.1 mg/dL (8.5-10.1); Chloride 102 mmol/L (98-107); Creatinine, Serum 0.61 mg/dL (0.55-1.02); EST Glomerular Filtration Rate 103 mL/min (>60); Est Glom Filt Rate - Afr Amer 124 mL/min (>60); Globulin 3.6 g/dL (2.2-4.2); Glucose 109 mg/dL (74-106); Potassium 3.3 mmol/L (3.5-5.1); Protein, Total 5.7 g/dL (6.4-8.2); Sodium Level 137 mmol/L (136-145)
[2021-12-18] MEDS: Potassium Chloride Oral Tablet 20 MEQ 40 MEQ PO (06:32)
[2021-12-18] MEDS: miSOPROStol 200 MCG Tablet PO (06:33)
[2021-12-18] MEDS: LORazepam 0.5 MG Tablet 0.25 MG PO ×2 (06:39→11:45)
[2021-12-18 06:56] LABS: Differential Comment SCANNED; Hypochromasia 1+; Platelet Estimate MKD DEC (ADEQ)
--- NOTE | 2021-12-18 09:26 | DS.PCM_ITS ---
Providers Date of Admission: 12/13/21 Date of Discharge: 12/18/21 Primary Care Physician: Dr. Unique Mijares MD Consultations 12/13/21 18:39 Consult: Gastroenterology Routine Consulting Provider: [facility] Reason for Consult: Acute anemia, unclear if GI bleed versus GB tumor associated EMERGENT Consult: No Notified: Yes Date Notified: 12/13/21 Time Notified: 17:29 Method of Notification: per Dr. Stephens, also texted Consult: Oncology/Hematology Routine Consulting Provider: [facility] Reason for Consult: Acute anemia, referred to hospital EMERGENT Consult: No Notified: Yes Date Notified: 12/14/21 Time Notified: 07:27 Method of Notification: in person 12/16/21 13:31 Consult: Hospice / Palliative Care Routine Consulting Provider: [facility] Reason for Consult: hospice EMERGENT Consult: No Notified: Yes Date Notified: 12/16/21 Time Notified: 13:32 Method of Notification: Answering Service Reason For Visit: ACUTE ANEMIA Diagnosis Discharge Diagnosis (1) GI bleed: Status: Acute Code(s): K92.2 - Gastrointestinal hemorrhage, unspecified (2) Obstructive jaundice: Status: Acute Code(s): K83.1 - Obstruction of bile duct Plan 1. Acute GI bleed secondary to acute bleeding duodenal ulcer, status post treatment with heater probe 2. Acute on chronic anemia secondary to #1 3.Suspected gastroparesis secondary to gastric outlet obstruction from large duodenal ulcer 4. Hypokalemia 5. Metastatic gallbladder CA with obstructive jaundice from extrinsic compression from gallbladder cancer 6. Pancytopenia/bi-cytopenia likely secondary to chemotherapy 7. Hypertension 8. Moderate chronic malnutrition, POA, Medications at Discharge Home Medications calcium carbonate 600 mg-vitamin D3 12.5 mcg (500 unit) capsule (Calcium 600 with Vitamin D3) 1 cap PO DAILY supplement 11/10/19 potassium chloride 20 mEq tablet,extended release(part/cryst) 40 meq PO TID supplement 05/18/21 acetaminophen 325 mg tablet 650 mg PO BID PRN Pain 12/13/21 losartan 25 mg tablet 25 mg PO BID@0800,2000 BP 12/13/21 magnesium chloride 71.5 mg (magnesium chloride) tablet,delayed release (Slow- Mag) 71.5 mg PO TID SUPPLEMENT 12/13/21 lorazepam 0.5 mg tablet 0.25 mg PO Q4H PRN PRN Anxiety #0 tabs 12/18/21 metoclopramide HCl 5 mg tablet (Reglan) 5 mg PO TID 2 weeks #42 tabs 12/18/21 misoprostol 200 mcg tablet 200 mcg PO TID 30 days #90 tabs 12/18/21 pantoprazole 40 mg tablet,delayed release 40 mg PO BID 30 days #60 tabs 12/18/21 sucralfate 1 gram tablet 1 g PO TID@1100,1600,2200 30 days #90 tabs 12/18/21 Hospital Course Operations None Procedures EGD Summary of Care Provided Minutes Spent on Discharge: 40 Hospital Course: 71-year-old with past medical history of 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 Patient was recently evaluated by her oncologist and found to have hemoglobin of 6.5 pressure sent to the emergency room. Patient was transfused a total of 4 units of packed RBCs in this hospital stay. GI was consulted. Patient was on IV PPI. She underwent EGD on 12/14/21 that showed 1 spurting duodenal ulcer with a visible vessel that was injected and treated with a heater probe and biopsied. She was followed by octreotide bolus and drip for 1 day. She was continued on her IV PPI. Patient continued to generally be stable. She had episode of nausea and vomiting believed to be secondary to gastroparesis. She was started on Reglan, azithromycin with improvement. Patient was followed by oncology during this hospital stay. Hospice was consulted, patient signed with hospice. She had episodes of hypokalemia during this hospital stay. She had evidence of moderate chronic malnutrition, superior court clerk consulted, she was on supplements. Patient had episodes of panic attack-like anxiety in the hospital. This improved with Ativan. She was discharged home with hospice. Hospice will provide Ativan. Patient will follow-up with oncology within a week and also with her primary care doctor. Physical Exam Narrative Physical exam: General: Alert, Oriented x3, Cooperative, appears frail, anxious HEENT: Atraumatic Oral: Moist Mucosa Neck: Supple Lungs: Clear to auscultation Cardiovascular: HS I+II, regular, no murmurs Abdomen: Bowel Sounds Present, Soft, Non Tender Extremities: No edema Skin: No rashes, No breakdown Neurological: Grossly intact Psych/Mental Status: Appropriate Weight / BMI Weight Weight: 50 kg Body Mass Index (BMI) 18.1 ABG / Lab / Microbiology Data Result Diagrams: 12/18/21 03:52 12/18/21 03:52 Laboratory: Laboratory Results - last 24 hr 12/17/21 05:27: MCHC 34.6 D, Diff Path Review Reviewed 12/17/21 05:27: Total Bilirubin 2.30 H, Direct Bilirubin 0.78 H, AST 60 H, ALT 57 H, Alkaline Phosphatase 367 H, Total Protein 5.8 L, Albumin 2.1 L, Globulin 3.7 12/18/21 03:52: WBC 6.9, RBC 2.81 L, Hgb 8.7 L, Hct 25.5 L, MCV 90.7, MCH 31.0, MCHC 34.1, RDW Std Deviation 57.6 H, RDW Coeff of Roldan 18.4 H, Plt Count 34 L*, MPV 9.0, Immature Gran % (Auto) 1.600 H, Neut % (Auto) 68.7, Lymph % (Auto) 14.6 L, [place] % (Auto) 13.7 H, Eos % (Auto) 1.3, Baso % (Auto) 0.1, Absolute Neuts (auto) 4.7, Absolute Lymphs (auto) 1.00, Nucleated RBC % 0, Differential Comment SCANNED, Diff Path Review May foll, Platelet Estimate MKD DEC, Hypochromasia 1+ 12/18/21 03:52: Sodium 137, Potassium 3.3 L, Chloride 102, Carbon Dioxide 29.0, Anion Gap 6, BUN 15, Creatinine 0.61, Estim Creat Clear Calc 42.50, Est GFR (MDRD) Af Amer 124, Est GFR (MDRD) Non-Af 103, BUN/Creatinine Ratio 24.5 H, Glucose 109 H, Calcium 8.1 L, Total Bilirubin 1.70 H, AST 42 H, ALT 44, Alkaline Phosphatase 341 H, Total Protein 5.7 L, Albumin 2.1 L, Globulin 3.6, Albumin/Globulin Ratio 0.6 L Microbiology: Microbiology 12/13/21 17:30 Stool Stool Occult Blood (LUIS) - Final D/C Instructions Discharge Diet: No restrictions Weight Bearing Status: Weight bearing as tolerated Meaningful Use Info Meaningful Use Diagnoses (Choose all that apply): None applicable Discharge Plan Admission Admit Date/Time: 12/13/21 17:29 Primary Reason for Your Visit: GI bleed/Metastatic gallbladder CA Attending Provider: Jossy Tolbert Primary Care Provider: Unique Mijares Consulting Providers: Ene Willingham ; Yuri Waite ; Geeta Wills ; Flakita Stephens ; Rashid Looney ; Tejinder Mckenzie ; Deborah Walsh ; Bill Abraham ; Stephanie Garcia ; Aury Campbell ; Yanelis Rodriguez NP ; Veronica Velasquez Instructions Additional Instructions / Restrictions: You are being discharged with hospice. Continue current recommendations from hospice and oncology. Continue to keep yourself hydrated. After about a week of taking Reglan, if you feel better, you may take the Reglan as needed. Discharge Orders/Prescriptions Prescriptions: New sucralfate 1 gram Tablet 1 g PO TID@1100,1600,2200 30 Days Qty: 90 0RF lorazepam 0.5 mg Tablet 0.25 mg PO Q4H PRN PRN (Reason: Anxiety) Qty: 0 0RF pantoprazole 40 mg Tablet,Delayed Release (Dr/Ec) 40 mg PO BID 30 Days Qty: 60 0RF misoprostol 200 mcg Tablet 200 mcg PO TID 30 Days Qty: 90 0RF metoclopramide HCl [Reglan] 5 mg tablet 5 mg PO TID 14 Days Qty: 42 0RF Continued calcium carbonate-vitamin D3 [Calcium 600 with Vitamin D3] 600 mg(1,500mg) - 500 unit capsule 1 cap PO DAILY potassium chloride 20 mEq Tablet,Er Particles/Crystals 40 meq PO TID losartan 25 mg tablet 25 mg PO BID@0800,2000 Label Comments: TAKE 1 TABLET BY MOUTH ONCE DAILY acetaminophen 325 mg Tablet 650 mg PO BID PRN (Reason: Pain) Slow-Mag 71.5 mg tablet,delayed release (DR/EC) 71.5 mg PO TID Label Comments: TAKE 1 TABLET BY MOUTH THREE TIMES DAILY Discontinued prochlorperazine maleate 10 mg tablet 10 mg PO Q6H PRN PRN (Reason: Nausea) Label Comments: TAKE 1 TABLET BY MOUTH EVERY 6 HOURS NEEDED promethazine 25 mg tablet 25 mg PO Q4H PRN (Reason: Nausea) Referrals / Follow Up: Unique Mijares MD [Primary Care Provider] - In 1 Week Tejinder Mckenzie DO [Med Staff - Active Staff] - In 1 Week Disposition Disposition (needs filled in before D/C Order can be placed): Hospice in Home Charges/Coding Visit Charges Inpatient E&M: 42252 Disch Hosp
--- NOTE | 2021-12-18 09:36 | PHA.DC.MR ---
Pharmacy Service has performed discharge medication reconciliation for this patient. The patient's discharge medication list was reviewed for discrepancies and discrepancies were resolved. Home Medications calcium carbonate 600 mg-vitamin D3 12.5 mcg (500 unit) capsule (Calcium 600 with Vitamin D3) 1 cap PO DAILY supplement 11/10/19 potassium chloride 20 mEq tablet,extended release(part/cryst) 40 meq PO TID supplement 05/18/21 acetaminophen 325 mg tablet 650 mg PO BID PRN Pain 12/13/21 losartan 25 mg tablet 25 mg PO BID@0800,2000 BP 12/13/21 magnesium chloride 71.5 mg (magnesium chloride) tablet,delayed release (Slow-Mag) 71.5 mg PO TID SUPPLEMENT 12/13/21 lorazepam 0.5 mg tablet 0.25 mg PO Q4H PRN PRN Anxiety #0 tabs 12/18/21 metoclopramide HCl 5 mg tablet (Reglan) 5 mg PO TID 2 weeks #42 tabs 12/18/21 misoprostol 200 mcg tablet 200 mcg PO TID 30 days #90 tabs 12/18/21 pantoprazole 40 mg tablet,delayed release 40 mg PO BID 30 days #60 tabs 12/18/21 sucralfate 1 gram tablet 1 g PO TID@1100,1600,2200 30 days #90 tabs 12/18/21
[2021-12-18] MEDS: Potassium Chloride Oral Tablet 20 MEQ PO (09:42)
[2021-12-18] MEDS: Pantoprazole Sodium 40 MG Tablet PO (09:46)
[2021-12-18] MEDS: Losartan Potassium 25 MG Tablet PO (09:46)
--- NOTE | 2021-12-18 10:20 | CASEMGMT ---
Social Work SW in to pt room to discuss transportation home. Pt shared will be picking up at discharge. SW called Hospice to update and inform of plan. Justyna at Hospice grateful for update. Asked if SW knew time pt would leave. SW unsure when pt will be in to pick pt up. SW called pt to check on time of pickup. Left message. Will update Justyna with time if pt calls back. Justyna requested discharge orders be faxed to [facility]. SW to fax the orders when discharge is complete. EHSAN Stein
[2021-12-18] MEDS: Ondansetron 4 MG/2 ML Vial IV (10:51)
--- NOTE | 2021-12-18 11:13 | CASEMGMT ---
Social Work SW faxed discharge Orders to [facility]. Notified on fax that SW has been unable to reach pt to coordinate transport time home. Will update Hospice with discharge/transport time if calls back. EHSAN Stein
--- NOTE | 2021-12-18 11:29 | CASEMGMT ---
Social Work SW called Justyna to inform that pt picking pt up to discharge now. Justyna appreciaitive. Stated would send nurse to pt home. Disposition: Home with Hospice EHSAN Stein
[2021-12-18] MEDS: Sucralfate 1 GM Tablet PO (11:45)
[2021-12-18 13:22] LABS: Pathologist Review Reviewed
== END 2021-12-18 13:35 | disposition hospice, home (50) | DRG 377 ==
LOC: ED 17:40 → MS3 17:44
PROVIDERS: Internal Medicine Gastroenterology; Student in an Organized Health Care Education/Training Program; Admitting Provider Family Medicine; Emergency Provider Emergency Medicine; PCP Internal Medicine; Visit Provider Internal Medicine
PROC: 0DJ08ZZ Inspection of Upper Intestinal Tract, Via Natural or Artificial Opening Endoscopic (ICD-10-PCS; CPT 43235; principal; 2021-12-14 16:10)
DX: K26.4 Chronic or unspecified duodenal ulcer with hemorrhage (principal); K83.1 Obstruction of bile duct; D61.818 Other pancytopenia; E44.0 Moderate protein-calorie malnutrition; C77.2 Secondary and unspecified malignant neoplasm of intra-abdominal lymph nodes; K56.7 Ileus, unspecified; E87.1 Hypo-osmolality and hyponatremia; C23 Malignant neoplasm of gallbladder; C78.7 Secondary malignant neoplasm of liver and intrahepatic bile duct; C78.00 Secondary malignant neoplasm of unspecified lung; D62 Acute posthemorrhagic anemia; I10 Essential (primary) hypertension; I89.0 Lymphedema, not elsewhere classified; K31.84 Gastroparesis; G43.909 Migraine, unspecified, not intractable, without status migrainosus; D63.0 Anemia in neoplastic disease; K44.9 Diaphragmatic hernia without obstruction or gangrene; E87.6 Hypokalemia; F41.9 Anxiety disorder, unspecified; Z87.891 Personal history of nicotine dependence; Z92.21 Personal history of antineoplastic chemotherapy; T45.1X5A Adverse effect of antineoplastic and immunosuppressive drugs, initial encounter; Z92.3 Personal history of irradiation
CPT/HCPCS: 36415; 36591; 74177; 80048; 80053; 80076; 82274; 83735; 84100; 85014; 85018; 85025; 86644; 86850; 86900; 86901; 86920; 86922; 86965; 88305; 88341; 88342; 99251; 99283; J7030; J7040; J7050; J7120; P9016; P9035; P9040; Q9967; A4216; G0463; J2405; J2916; J3490

== ENCOUNTER 2021-12-20 12:52 | Inpatient (IN) | payer MEDICARE, OTHER, SELFPAY ==
[2021-12-20] VITALS (14 sets, daily range): BP systolic 107–154; BP diastolic 62–88; PULSE 71–96; RESP 15–20; TEMP 36.3–36.8; O2SAT 96–99; BMI 18.0; BMI 17.6
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
--- NOTE | 2021-12-20 15:35 | CT_ITS ---
EXAM: CT HEAD WITHOUT INTRAVENOUS CONTRAST CLINICAL INDICATION: altered mental status TECHNIQUE: Multiple axial images were obtained of the head without intravenous contrast. This CT exam was performed using one or more of the following dose reduction techniques: automated exposure control, adjustment of the mA and/or kV according to patient size, and/or use of iterative reconstruction technique. This report was created using [employer] report generation technology. COMPARISON: 12/06/2021 FINDINGS: BRAIN AND EXTRA-AXIAL SPACES: Unremarkable. No intra- or extra-axial hemorrhage. No evidence of acute infarct. No intracranial mass or mass effect. There is preservation of the mullins/white matter interface. Posterior fossa structures are unremarkable. Ventricles are appropriate for age. No hydrocephalus. Basal cisterns are patent. BONES/JOINTS: Unremarkable. No discrete lytic or blastic abnormalities. SINUSES: Unremarkable as visualized. Clear. MASTOID AIR CELLS: Unremarkable. Clear. ORBITS: Visualized globes, extraocular muscles, optic nerves and retrobulbar fat appear unremarkable. OTHER FINDINGS: Stable underlying atrophic changes. CT/Brain/Head without Contrast IMPRESSION: No acute findings in the head/brain. There is been no change from the reference exam. Electronically Signed: Danny Kulkarni MD at 16:30 EDT ,
--- NOTE | 2021-12-20 15:38 | RAD_ITS ---
EXAM: XR PELVIS, 1 OR 2 VIEWS CLINICAL INDICATION: fall/injury -- tend left ischial tuberosity TECHNIQUE: Frontal view of the pelvis. This report was created using [employer] report generation technology. COMPARISON: None. FINDINGS: BONES/JOINTS: Unremarkable. No displaced fracture. No destructive or sclerotic lesions. Note that overlapping bowel shadows may however obscure fine detail. Sacroiliac joints are unremarkable. No widening of the pubic symphysis. The articular structures are unremarkable. SOFT TISSUES: Unremarkable. No soft tissue swelling or gas. RAD/Pelvis 1 or 2 Views IMPRESSION: No evidence of displaced pelvic fracture. Electronically Signed: Danny Kulkarni MD at 16:48 EDT ,
--- NOTE | 2021-12-20 15:38 | EX.ED.DYSGE1 ---
HPI History of Present Illness Chief Complaint: Abn Labs Informant: patient and family Narrative Narrative: Patient has stage IV gallbladder cancer, she was recently admitted to the hospital for GI bleeding and found to treated endoscopically, she was also here getting IV octreotide and PPI and 4 units of packed red blood cell transfusion, she was discharged 2 days ago on Protonix 40 mg twice daily, bisoprolol, and on hospice. In the past couple days she has been somewhat disoriented, including being brought here to the ED after outpatient labs showed her hemoglobin was lower at 7.3 today. She states she is feeling better and less disoriented now, she remembers seeing me when she was here in the ED about a week or so ago. She denies having any symptoms on gross ROS but she does not remember everything, limiting ROS to some degree. Family states she has had some dark stools, and the first bowel movement that she had since being home for the past 2 days was 1.5 days ago and had some dark red blood mixed in with it. That was the only one that they saw. Patient denies any having any abdominal pain, nausea or vomiting. She did have a fall soon after she got home, falling onto her buttocks fairly hard, she has some bruising and mild soreness there. Did not injure her head that they know of. She has had headaches and does have a mild 1 now, she did have a visual disturbance transiently, she states she commonly gets migraines with visual disturbance as her aura; she states her vision is fine right now. Family wants her revoked from hospice, further evaluated, and given blood. There are 3 family members and all are in agreement with this. They also state that she has forgotten that she was diagnosed with cancer and basically does not remember it at this time. [facility] Medical History Anemia Chemotherapy induced diarrhea Former tobacco use Gallbladder cancer HTN (hypertension) Migraines Rupture of small intestine Seasonal allergies Vaginal atrophy Home Medications potassium chloride 20 mEq tablet,extended release(part/cryst) 40 meq PO TID supplement 05/18/21 [History Last Taken 12/13/21] acetaminophen 325 mg tablet 650 mg PO BID PRN Pain 12/13/21 [History Last Taken 12/12/21] losartan 25 mg tablet 25 mg PO BID@0800,2000 BP 12/13/21 [History Last Taken 12/13/21] magnesium chloride 71.5 mg (magnesium chloride) tablet,delayed release (Slow-Mag) 71.5 mg PO TID SUPPLEMENT 12/13/21 [History Last Taken 12/13/21] metoclopramide HCl 5 mg tablet (Reglan) 5 mg PO TID 2 weeks #42 tabs 12/18/21 [Rx Last Taken Unknown] misoprostol 200 mcg tablet 200 mcg PO TID 30 days #90 tabs 12/18/21 [Rx Last Taken Unknown] pantoprazole 40 mg tablet,delayed release 40 mg PO BID 30 days #60 tabs 12/18/21 [Rx Last Taken Unknown] sucralfate 1 gram tablet 1 g PO TID@1100,1600,2200 30 days #90 tabs 12/18/21 [Rx Last Taken Unknown] buspirone 5 mg tablet 5 mg PO BID 12/20/21 [History Last Taken Unknown] Allergy/AdvReac Type Severity Reaction Status Date / Time erythromycin base Allergy Mild upset Verified 12/20/21 12:52 stomach Sulfa (Sulfonamide Allergy Mild dizziness, Verified 12/20/21 12:52 Antibiotics) nausea, sweaty diphenhydramine AdvReac Other Verified 12/20/21 12:52 [From Benadryl] prochlorperazine AdvReac Chest Verified 12/20/21 12:52 [From Compazine] tightness Family History (Updated 12/13/21 @ 18:[address] Ene Willingham MD) Brother Prostate cancer Drug abuse Alcohol abuse Mother Hypertension HLD (hyperlipidemia) Pulmonary embolism Father Glaucoma Surgical History (Updated 12/13/21 @ 18:[address] Ene Willingham MD) Bartholin cyst History of unilateral salpingectomy S/P ectopic S/P small bowel resection Social History household members: spouse Smoking Status: Former smoker alcohol intake: never substance use type: does not use caffeine: No what type of physical activity do you participate in: walking, yoga and other details: ti kaye for balance frequency: daily seatbelt use: always do you feel safe at home: Yes additional social history: -Lebron Patient works at [employer] ROS ED Review of Systems ROS Unobtainable: due to mental status ENT ENT ED: Denies ear pain or facial pain Cardiovascular Cardiovascular: Reports other Details: Lightheaded with standing today ; Denies chest pain Respiratory/Chest Respiratory/Chest: Denies dyspnea Gastrointestinal Gastrointestinal: Reports as per HPI, hematochezia and melena; Denies abdominal pain Musculoskeletal Musculoskeletal: Reports back pain; Denies neck pain Neurologic Neurologic: Reports headache(s); Denies paresthesias or weakness EXAM Physical Exam Const Vital Signs: 12/20/21 12:52 12/20/21 14:37 12/20/21 14:40 Temperature 97.5 F L Temperature Source Temporal Pulse Rate 94 77 Respiratory Rate 18 18 Respiratory Effort Normal Non-Labored Blood Pressure 107/67 140/76 H Blood Pressure Mean 80 97 Pulse Ox 99 98 Oxygen Delivery Method Room Air 12/20/21 16:13 Temperature Temperature Source Pulse Rate 94 Respiratory Rate 15 Respiratory Effort Blood Pressure 134/71 H Blood Pressure Mean 92 Pulse Ox 97 Oxygen Delivery Method Room Air Positive well nourished and well developed Constitutional Narrative: Keenly alert, sitting in bed doing fine, conversive in full sentences. No distress. General Appearance ED: well developed and NAD HEENT Reports moist mucous membranes HEENT Narrative: No facial tenderness or signs of trauma normocephalic and atraumatic Eyes PERRL and EOMs intact bilaterally Neck full ROM and supple Neck Narrative: No tenderness Resp normal respiratory effort and clear to auscultation bilaterally Cardio regular rate, regular rhythm and no murmurs GI non-tender and non-distended Auscultation: hyperactive bowel sounds Palpation: soft Back/Spine no CVA tenderness Back/Spine Narrative: No spinal tenderness. Mildly tender left ischial tuberosity, but nowhere else on the bony pelvis. There is ecchymosis between the left ischial tuberosity and the anus which is otherwise atraumatic, and there is more ecchymosis in the right buttock. The pelvic brim is nontender, the hips are ranging without pain. General Back: other FROM Extremity normal to inspection General Extremety ED: Negative for edema, pulses abnormal or tenderness General Extremity: Negative for edema or pulses abnormal Neuro oriented x3, CN's II-XII intact bilaterally and no sensory deficits noted Neuro Narrative: Oriented to person, place, city, year. GCS 15. Sensorium / Orientation: awake and alert Motor Exam: strength 5/5 throughout Skin no rashes or lesions noted and no wounds Skin Narrative: Ecchymoses in buttocks see above. Skin intact. MDM MDM MDM Narrative Medical decision making narrative: Type cross for 2 units of blood after informed consent from the patient and family is agreed on. 1 view x-ray pelvis on my interpretation negative for any acute fractures, radiology in agreement. 2 view chest x-ray my interpretation also negative for any acute radiology in agreement. On rectal there is no pooling, dark nonbloody stool present, Hemoccult positive. Hemoglobin comes back at 6.4 today, CT of the head shows no acute hemorrhage or other acute abnormality, patient has thrombocytopenia that is relatively stable from before with platelets of 49 right now, no indication for transfusion at this time since patient is hemodynamically stable and there is no evidence of acute arterial GI bleeding/hemorrhage. BUN is 16 consistent with this as well. Troponin is elevated nonspecifically 590, EKG shows no acute injury pattern. Discussed with Dr. Walsh who will consult in the hospital and agrees patient does not need to be emergently scoped at this time. Lab Data Attestation: I reviewed the patient's lab results. Labs: Laboratory Results - last 24 hr 12/20/21 12/20/21 12/20/21 10:45 15:50 15:50 WBC 6.5 RBC 1.99 L Hgb 6.4 L Hct 18.6 L MCV 93.5 MCH 32.2 H MCHC 34.4 RDW Std Deviation 62.4 H RDW Coeff of [place]oldan 20.6 H Plt Count 49 L* MPV 12.6 H Immature Gran % (Auto) 1.100 H Neut % (Auto) 68.8 Lymph % (Auto) 15.7 L [place] % (Auto) 13.6 H Eos % (Auto) 0.5 Baso % (Auto) 0.3 Absolute Neuts (auto) 4.5 Absolute Lymphs (auto) 1.02 Nucleated RBC % 0 Differential Comment SCANNED Anisocytosis 2+ PT INR APTT Sodium 135 L Potassium 3.4 L Chloride 101 Carbon Dioxide 27.0 Anion Gap 7 BUN 16 Creatinine 0.57 Estim Creat Clear Calc 41.82 Est GFR (MDRD) Af Amer 134 Est GFR (MDRD) Non-Af 111 BUN/Creatinine Ratio 27.9 H Glucose 99 Calcium 8.7 Total Bilirubin 1.40 H AST 30 ALT 30 Alkaline Phosphatase 260 H Troponin I High Sens 590 H* Total Protein 5.9 L Albumin 2.3 L Globulin 3.6 Albumin/Globulin Ratio 0.6 L Blood Type Cancelled Antibody Screen Cancelled Crossmatch See Detail 12/20/21 12/20/21 15:50 15:50 WBC RBC Hgb Hct MCV MCH MCHC RDW Std Deviation RDW Coeff of [place]old[place] Plt Count MPV Immature Gran % (Auto) Neut % (Auto) Lymph % (Auto) [place] % (Auto) Eos % (Auto) Baso % (Auto) Absolute Neuts (auto) Absolute Lymphs (auto) Nucleated RBC % Differential Comment Anisocytosis PT 14.2 INR 1.1 APTT 35.6 Sodium Potassium Chloride Carbon Dioxide Anion Gap BUN Creatinine Estim Creat Clear Calc Est GFR (MDRD) Af Amer Est GFR (MDRD) Non-Af BUN/Creatinine Ratio Glucose Calcium Total Bilirubin AST ALT Alkaline Phosphatase Troponin I High Sens Total Protein Albumin Globulin Albumin/Globulin Ratio Blood Type Antibody Screen Crossmatch See Detail Radiography Diagnostic Testing: Clinical Impression(s) from Imaging Studies Brain CT 12/20/21 15:35 IMPRESSION: No acute findings in the head/brain. There is been no change from the reference exam. Electronically Signed: Danny Kulkarni MD at 16:30 EDT , Pelvis X-Ray 12/20/21 15:38 IMPRESSION: No evidence of displaced pelvic fracture. Electronically Signed: Danny Kulkarni MD at 16:48 EDT , Chest X-Ray 12/20/21 16:21 IMPRESSION: No change in the appearance of the chest from reference exam. Electronically Signed: Danny Kulkarni MD at 16:36 EDT , Rhythm Strip Rhythm Strip: Sinus Rhythm Rate: 85 Ectopy: None EKG Initial EKG: Attestation: I personally reviewed and interpreted this EKG as follows: Interpretation: Sinus Rhythm and No Acute Injury Pattern Comments: Normal EKG, no evidence of ischemia. Critical Care Time Critical Care Time: Yes Critical care time (excluding procedures): 30-74 minutes (35 min), Including time spent:, Discussing w/Patient &/or Family/Professional Skater, Discussing w/Consultants, Arranging Admission or Transfer and Performing Direct Patient Care at Bedside Discharge Plan Dx/Rx/DC Orders Clinical Impression: ABLA (acute blood loss anemia), Thrombocytopenia, Acute upper GI bleed, Elevated troponin, Acute delirium, Gallbladder cancer Disposition Disposition: Acute Care [facility]
--- NOTE | 2021-12-20 16:21 | RAD_ITS ---
EXAM: XR CHEST, 2 VIEWS CLINICAL INDICATION: altered mental status TECHNIQUE: Frontal and lateral views of the chest. This report was created using [employer] report generation technology. COMPARISON: 08/25/2021 FINDINGS: LUNGS AND PLEURAL SPACES: There is trace left basilar airspace disease which is stable. No pneumothorax. No effusion. HEART: Unremarkable. Cardiac silhouette not enlarged. MEDIASTINUM: Central airways and mediastinal contour are unremarkable. BONES/JOINTS: Unremarkable. SOFT TISSUES: Unremarkable. TUBES, LINES AND DEVICES: Left sided Port-A-Cath in stable position. RAD/Chest PA and Lateral IMPRESSION: No change in the appearance of the chest from reference exam. Electronically Signed: Danny Kulkarni MD at 16:36 EDT ,
[2021-12-20 16:39] LABS: Absolute Lymphocyte Count 1.02 X10^3/uL (0.83-4.51); Absolute Neutrophil Count 4.5 X10^3/uL (2.0-7.7); Basophil# 0.02 X10^3/uL; Basophil% 0.3 % (0-1); Eosinophil# 0.03 X10^3/uL; Eosinophils% 0.5 % (0-5); Hematocrit 18.6 % (37-47); Hemoglobin 6.4 g/dL (12.0-15.0); Lymphocyte # 1.02 X10^3/ul (0.83-4.51); Lymphocyte % 15.7 % (19-41); Mean Corp Hgb Conc 34.4 g/dL (32-36); Mean Corpuscular Hgb 32.2 pg (27.0-32.0); Mean Corpuscular Volume 93.5 fL (81-99); Mean Platelet Vol. 12.6 fl (6.2-12.0); Monocyte# 0.88 X10^3/uL; Monocyte% 13.6 % (0-10); NRBC Flagged by Analyzer 0 % (0-5); Neutrophil # 4.47 X10^3/uL (2.7-7.7); Neutrophil % 68.8 % (47-70); POSITIVE COUNT YES; POSITIVE MORPHOLOGY YES; RBC Distribution Width CV 20.6 % (11.6-14.6); RBC Distribution Width SD 62.4 fl (35.1-43.9); Red Blood Count 1.99 M/mm3 (4.2-5.4); White Blood Count 6.5 K/mm3 (4.4-11.0)
[2021-12-20 16:43] LABS: International Normalized Ratio 1.1; Prothrombin Time (Protime)PT. 14.2 SECONDS (11.7-14.9)
[2021-12-20 16:44] LABS: Partial Thromboplast Time 35.6 Seconds (24.1-36.2)
[2021-12-20 16:47] LABS: ALB/GLOB Ratio 0.6 RATIO (0.9-2.4); AST(SGOT) 30 U/L (15-37); Alanine Aminotransfer ALT/SGPT 30 U/L (13-56); Albumin, Serum 2.3 g/dL (3.2-5.0); Alkaline Phosphatase 260 U/L (45-117); Anion Gap 7 (5-15); BUN 16 mg/dL (7-18); BUN/Creat Ratio 27.9 RATIO (10-20); Calcium,Total 8.7 mg/dL (8.5-10.1); Chloride 101 mmol/L (98-107); Creatinine, Serum 0.57 mg/dL (0.55-1.02); EST Glomerular Filtration Rate 111 mL/min (>60); Est Glom Filt Rate - Afr Amer 134 mL/min (>60); Estimated Creatinine Clearance 41.82 ml/min; Globulin 3.6 g/dL (2.2-4.2); Glucose 99 mg/dL (74-106); Potassium 3.4 mmol/L (3.5-5.1); Protein, Total 5.9 g/dL (6.4-8.2); Sodium Level 135 mmol/L (136-145); Troponin-I HS 590 pg/mL (3.0-54.0)
[2021-12-20 16:59] LABS: Differential Indicated SCAN CRITERIA MET; Platelet Count 49 K/mm3 (150-450)
[2021-12-20 17:16] LABS: Anisocytosis 2+; Differential Comment SCANNED
[2021-12-20] MEDS: Metoclopramide 10 MG/2 ML Vial 5 MG IV (17:49)
--- NOTE | 2021-12-20 18:18 | HP.PCM.HOS_ITS ---
HPI - General General Date of Admission: 12/20/21 Date of Service: 12/20/21 Chief Complaint: Abnormal labs HPI Narrative JENNY RAZA, is a 71 F who presents with abnormal labs. Patient was just discharged with bleeding duodenal ulcer . Patient was doing well but then around noon became just confused not knowing what was going on with her currently or in her past. Patient had abnormal labs which showed hemoglobin 7.3 and on the it was 8.7. In the emergency room her hemoglobin was 6.4. Patient was typed and crossed for 2 units packed red blood cells. A rectal exam was performed in the emergency room and showed no active bleeding. The patient's , who is at bedside, stated the patient did have hematochezia yesterday but none since. Patient denies any abdominal pain but does complain of a headache worse than her typical migraines. Patient was discharged to hospice but revoked it so that she can come to the hospital to be evaluated. [facility] Medical History (Updated 12/20/21 @ 18:[address] Carlos Sam, ) Anemia Chemotherapy induced diarrhea Former tobacco use Gallbladder cancer Gallbladder cancer, carcinoma HTN (hypertension) Migraines Rupture of small intestine Seasonal allergies Vaginal atrophy Home Medications potassium chloride 20 mEq tablet,extended release(part/cryst) 20 meq PO TID supp lement 05/18/21 [History Last Taken 12/20/21] acetaminophen 325 mg tablet 650 mg PO BID PRN Migraine Headache 12/13/21 [History Last Taken 12/20/21 10:00] losartan 25 mg tablet 25 mg PO DAILY BP 12/13/21 [History Last Taken 12/19/21 16:00] magnesium chloride 71.5 mg (magnesium chloride) tablet,delayed release (Slow- Mag) 71.5 mg PO TID SUPPLEMENT 12/13/21 [History Last Taken 12/20/21] buspirone 5 mg tablet 5 mg PO TID ANXIETY 12/20/21 [History Last Taken 12/19/21] metoclopramide HCl 5 mg tablet (Reglan) 5 mg PO TID STOMACH 12/20/21 [History Last Taken 12/20/21] misoprostol 200 mcg tablet 200 mcg PO TID STOMACH 12/20/21 [History Last Taken 12/20/21] pantoprazole 40 mg tablet,delayed release 40 mg PO BID GERD 12/20/21 [History Last Taken 12/20/21 10:00] sucralfate 1 gram tablet 1 g PO BID GERD 12/20/21 [History Last Taken 12/19/21] Allergy/AdvReac Type Severity Reaction Status Date / Time erythromycin base Allergy Mild upset Verified 12/20/21 12:52 stomach Sulfa (Sulfonamide Allergy Mild dizziness, Verified 12/20/21 12:52 Antibiotics) nausea, sweaty diphenhydramine AdvReac Other Verified 12/20/21 12:52 [From Benadryl] prochlorperazine AdvReac Chest Verified 12/20/21 12:52 [From Compazine] tightness Family History Brother Prostate cancer Drug abuse Alcohol abuse Mother Hypertension HLD (hyperlipidemia) Pulmonary embolism Father Glaucoma Surgical History Bartholin cyst History of unilateral salpingectomy S/P ectopic S/P small bowel resection Social History household members: spouse Smoking Status: Former smoker alcohol intake: never substance use type: does not use caffeine: No what type of physical activity do you participate in: walking, yoga and other details: ti kaye for balance frequency: daily seatbelt use: always do you feel safe at home: Yes additional social history: -Lebron Patient works at [employer] Review of Systems ROS Unobtainable: due to encephalopathy Vital Signs Vital Signs Vital Signs: 12/20/21 12:52 12/20/21 14:37 12/20/21 14:40 Temperature 36.4 C L Temperature Source Temporal Pulse Rate 94 77 Respiratory Rate 18 18 Respiratory Effort Normal Non-Labored Blood Pressure 107/67 140/76 H Blood Pressure Mean 80 97 Pulse Ox 99 98 Oxygen Delivery Method Room Air 12/20/21 16:13 12/20/21 17:56 Temperature 36.4 C L Temperature Source Temporal Pulse Rate 94 93 Respiratory Rate 15 15 Respiratory Effort Blood Pressure 134/71 H 154/83 H Blood Pressure Mean 92 106 Pulse Ox 97 98 Oxygen Delivery Method Room Air Room Air Weight Weight: 49.895 kg Body Mass Index (BMI) 18.0 Physical Exam Const Constitutional Narrative: Anxious. Confused. Is able to tell me that Dr. Friend did her recent endoscopy and that she had an ulcer that was bleeding. She then asked me where her cancer came from even though she has been dealing with that for the past year. Starts accusing her of withholding information about her cancer. HEENT normocephalic and head/scalp atraumatic Resp normal respiratory effort, no retractions, no use of accessory muscles and clear to auscultation bilaterally Cardio regular rate, regular rhythm, S1 normal heart sound and S2 normal heart sound GI normal to inspection, nondistended, normoactive bowel sounds, soft to palpation, non-tender, non-distended and hepatosplenomegaly Extremity normal to inspection and full ROM Neuro moves all extremities and no focal motor deficits Sensorium / Orientation: awake and alert Psych Mood & Affect: anxious Results Lab / Micro Data Attestation: I reviewed the patient's lab results. Result Diagrams: 12/20/21 15:50 12/20/21 15:50 Labs: Laboratory Results - last 24 hr 12/20/21 10:45: Blood Type Cancelled, Antibody Screen Cancelled, Crossmatch See Detail 12/20/21 15:50: WBC 6.5, RBC 1.99 L, Hgb 6.4 L, Hct 18.6 L, MCV 93.5, MCH 32.2 H , MCHC 34.4, RDW Std Deviation 62.4 H, RDW Coeff of Roldan 20.6 H, Plt Count 49 L*, MPV 12.6 H, Immature Gran % (Auto) 1.100 H, Neut % (Auto) 68.8, Lymph % (Auto) 15.7 L, [place] % (Auto) 13.6 H, Eos % (Auto) 0.5, Baso % (Auto) 0.3, Absolute Neuts (auto) 4.5, Absolute Lymphs (auto) 1.02, Nucleated RBC % 0, Differential Comment SCANNED, Anisocytosis 2+ 12/20/21 15:50: Sodium 135 L, Potassium 3.4 L, Chloride 101, Carbon Dioxide 27.0, Anion Gap 7, BUN 16, Creatinine 0.57, Estim Creat Clear Calc 41.82, Est GFR (MDRD) Af Amer 134, Est GFR (MDRD) Non-Af 111, BUN/Creatinine Ratio 27.9 H, Glucose 99, Calcium 8.7, Total Bilirubin 1.40 H, AST 30, ALT 30, Alkaline Phosphatase 260 H, Troponin I High Sens 590 H*, Total Protein 5.9 L, Albumin 2.3 L, Globulin 3.6, Albumin/Globulin Ratio 0.6 L 12/20/21 15:50: PT 14.2, INR 1.1, APTT 35.6 12/20/21 15:50: Blood Type O POSITIVE, Antibody Screen NEGATIVE, Crossmatch See Detail Micro: Microbiology 12/20/21 15:40 Stool Stool Occult Blood (LUIS) - Final Occult Blood Positive Rhythm Strip Rhythm Strip: Sinus Rhythm Rate: 85 Ectopy: None Radiology Impression Brain CT 12/20/21 15:35 IMPRESSION: No acute findings in the head/brain. There is been no change from the reference exam. Electronically Signed: Danny Kulkarni MD at 16:30 EDT , Pelvis X-Ray 12/20/21 15:38 IMPRESSION: No evidence of displaced pelvic fracture. Electronically Signed: Danny Kulkarni MD at 16:48 EDT , Chest X-Ray 12/20/21 16:21 IMPRESSION: No change in the appearance of the chest from reference exam. Electronically Signed: Danny Kulkarni MD at 16:36 EDT , Assessment & Plan Assessment/Plan (1) ABLA (acute blood loss anemia): PLAN: Likely secondary to the patient's known duodenal ulcer. 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 Patient had a bleeding ulcer at that time that was caut erized on the seventh. Patient type and cross for 2 units of Blood cells in the emergency room. Will continue to monitor hemoglobin. (2) Acute upper GI bleed: PLAN: Likely secondary to duodenal ulcer. Patient does not appear to be having active bleeding at this time. Continue with the sucralfate as well as misoprostol Will change her pantoprazole from p.o. to IV twice daily. There may be some residual oozing from the ulcer but I did tell the patient and her family it possibly could be something else that is bleeding. (3) Migraines: QUALIFIERS: Migraine type: with aura Status migrainosus presence: without status migrainosus Intractability: not intractable Qualified Code(s): G43.109 - Migraine with aura, not intractable, without status migrainosus PLAN: Chronic but worse according to the patient. She was concerned that the anemia may be causing this. Told them that his probably a factor but likely will be resolved with transfusions. No NSAIDs. Hold off any steroids given the ulcer. Patient did receive Reglan in the emergency room response. I did tell the patient and her family that we can put her on acetaminophen to see if that would help but it may not be sufficient. Can utilize narcotics but informed them that narcotics are typically a poor choice for migraines given her situation with stage IV gallbladder cancer palliation would be appropriate with narcotics for headache if it does help. (4) Elevated troponin: PLAN: May be a type II event. No prior troponins available. EKG was unremarkable for any acute ischemia. Patient not a candidate for cardiac evaluation and the fact that patient is pretty reasonable and in hospice when she is done with his hospitalization will consult cardiology. Currently patient is hemodynamically stable (5) Hypokalemia: PLAN: Replace (6) Thrombocytopenia: PLAN: Monitor. Complicates the patient's bleeding. (7) Gallbladder cancer, carcinoma: PLAN: Stage IV. Now with new lesion in her duodenum. Patient to reenroll in hospice upon discharge. PLAN: Plan VTE prophylaxis: Not chemical prophylaxis contraindicated in light of the anemia. SCDs. CODE STATUS: Currently full code. I did not go into further details as the patient and her family are very overwhelmed particular with new developments of lumbar ulcer from cancerous lesion. The plan is for the patient to go home with hospice when she is medically stabilized. After further conversation with nurse to make her DNR Comfort Care arrest has some of the anxiety over the new developments ease. Charges/Coding Visit Charges Inpatient E&M: 86277 Init Hosp L3
[2021-12-20] MEDS: Sucralfate 1 GM Tablet PO (20:20)
[2021-12-20] MEDS: miSOPROStol 200 MCG Tablet PO (20:20)
[2021-12-20] MEDS: Acetaminophen 500 MG Tablet 1000 MG PO (20:20)
[2021-12-21] VITALS (10 sets, daily range): BP systolic 126–151; BP diastolic 70–89; PULSE 67–85; RESP 18–20; TEMP 36.4–36.9; O2SAT 95–99
[2021-12-21] MEDS: KCL 20MEQ in 0.9% NS 20 MEQ/1,000 ML IV.SOLN. 150 MEQ IV ×2 (01:12→08:03)
[2021-12-21] MEDS: Acetaminophen 500 MG Tablet 1000 MG PO ×3 (05:47→22:08)
[2021-12-21] MEDS: miSOPROStol 200 MCG Tablet PO ×3 (05:53→22:09)
[2021-12-21 06:24] LABS: Absolute Lymphocyte Count 0.69 X10^3/uL (0.83-4.51); Absolute Neutrophil Count 4.4 X10^3/uL (2.0-7.7); Basophil# 0.03 X10^3/uL; Basophil% 0.5 % (0-1); Eosinophils% 1.6 % (0-5); Hematocrit 29.2 % (37-47); Hemoglobin 9.7 g/dL (12.0-15.0); Lymphocyte # 0.69 X10^3/ul (0.83-4.51); Lymphocyte % 11.3 % (19-41); Mean Corp Hgb Conc 33.2 g/dL (32-36); Mean Corpuscular Hgb 30.4 pg (27.0-32.0); Mean Corpuscular Volume 91.5 fL (81-99); Mean Platelet Vol. 9.8 fl (6.2-12.0); Monocyte# 0.77 X10^3/uL; Monocyte% 12.6 % (0-10); NRBC Flagged by Analyzer 0 % (0-5); Neutrophil # 4.39 X10^3/uL (2.7-7.7); POSITIVE COUNT YES; Platelet Count 54 K/mm3 (150-450); RBC Distribution Width CV 18.2 % (11.6-14.6); RBC Distribution Width SD 51.9 fl (35.1-43.9); Red Blood Count 3.19 M/mm3 (4.2-5.4); White Blood Count 6.1 K/mm3 (4.4-11.0)
[2021-12-21] MEDS: Ondansetron 4 MG/2 ML Vial IV (07:00)
[2021-12-21 07:04] LABS: Anion Gap 6 (5-15); BUN 11 mg/dL (7-18); Calcium,Total 8.5 mg/dL (8.5-10.1); Chloride 104 mmol/L (98-107); Creatinine, Serum 0.52 mg/dL (0.55-1.02); EST Glomerular Filtration Rate 123 mL/min (>60); Est Glom Filt Rate - Afr Amer 149 mL/min (>60); Estimated Creatinine Clearance 41.48 ml/min; Glucose 95 mg/dL (74-106); Sodium Level 138 mmol/L (136-145)
[2021-12-21] MEDS: Losartan Potassium 25 MG Tablet PO (08:15)
[2021-12-21] MEDS: Potassium Chloride Oral Tablet 20 MEQ 60 MEQ PO (08:15)
[2021-12-21] MEDS: Sucralfate 1 GM Tablet PO ×2 (08:15→22:09)
--- NOTE | 2021-12-21 08:24 | CASEMGMT ---
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 Pt came in from Dr. Stephens's office for low Hgb n 12/13/21. Pt has been on palliative chemo for last year and has had multiple transfusions during that time with the last one being 12/07/21. Pt transfused 4 units while here [address] Dr[address] Stephens was also consulted while inpt. CT abdomen pelvis while here shows significant progression disease in the liver and retroperitoneal lymphadenopathy. Per Dr. Stephens's note, pt is on 4th line palliative chemo. Pt with a lot of anxiety regarding all. GI was consulted and pt had EGD where one spurting duodenal ulcer with was injected and treated with heater probe as well as bx. Hospice consulted and pt signed on with hospice and went home with hospice on 12/18/21. Pt returned to [facility] ED on 12/20/21 revoking hospice d/t disorientation and low hgb 7.[address] Stephens's office. On arrival to ED, pt's Hgb was 6.4. Pt has been transfused with 2 more units of PRBC's since admission this visit. Dr. Walsh was consulted again. CM to follow for further clinical course and discharge planning/needs. Rangel CARCAMO CM
--- NOTE | 2021-12-21 12:19 | PCM.PN.HOSP ---
Subjective Subjective Follow-up on acute GI bleed/metastatic gallbladder CA: Patient was seen and examined. She complains of feeling very anxious. Denied any pain. Transfused 2 units of packed RBC yesterday. Repeat hemoglobin is 9.7. Objective Data Objective Data Vital Signs: Vital Signs Temp Pulse Resp BP Pulse Ox O2 Del Method 98.5 F 77 20 H 145/89 H 97 Room Air 12/21/21 09:30 12/21/21 09:30 12/21/21 09:30 12/21/21 09:30 12/21/21 09:30 12/21/21 09:30 Oxygen Delivery Method Room Air Weight: 49.487 kg Body Mass Index (BMI) 17.6 Intake & Output: Intake and Output for Last 24 Hours 12/19/21 12/20/21 12/21/21 23:59 23:59 23:59 Intake Total 110 / 310 1760 / 1760 Balance 110 / 310 1760 / 1760 Lab / Micro Data Result Diagrams: 12/21/21 05:45 12/21/21 05:45 Labs: Laboratory Results - last 24 hr 12/20/21 10:45: Blood Type Cancelled, Antibody Screen Cancelled, Crossmatch See Detail 12/20/21 15:50: WBC 6.5, RBC 1.99 L, Hgb 6.4 L, Hct 18.6 L, MCV 93.5, MCH 32.2 H, MCHC 34.4, RDW Std Deviation 62.4 H, RDW Coeff of Roldan 20.6 H, Plt Count 49 L*, MPV 12.6 H, Immature Gran % (Auto) 1.100 H, Neut % (Auto) 68.8, Lymph % (Auto) 15.7 L, [place] % (Auto) 13.6 H, Eos % (Auto) 0.5, Baso % (Auto) 0.3, Absolute Neuts (auto) 4.5, Absolute Lymphs (auto) 1.02, Nucleated RBC % 0, Differential Comment SCANNED, Diff Path Review May foll, Anisocytosis 2+ 12/20/21 15:50: Sodium 135 L, Potassium 3.4 L, Chloride 101, Carbon Dioxide 27.0, Anion Gap 7, BUN 16, Creatinine 0.57, Estim Creat Clear Calc 41.82, Est GFR (MDRD) Af Amer 134, Est GFR (MDRD) Non-Af 111, BUN/Creatinine Ratio 27.9 H, Glucose 99, Calcium 8.7, Total Bilirubin 1.40 H, AST 30, ALT 30, Alkaline Phosphatase 260 H, Troponin I High Sens 590 H*, Total Protein 5.9 L, Albumin 2.3 L, Globulin 3.6, Albumin/Globulin Ratio 0.6 L 12/20/21 15:50: PT 14.2, INR 1.1, APTT 35.6 12/20/21 15:50: Blood Type O POSITIVE, Antibody Screen NEGATIVE, Crossmatch See Detail 12/21/21 05:45: WBC 6.1, RBC 3.19 L, Hgb 9.7 L, Hct 29.2 L, MCV 91.5, MCH 30.4, MCHC 33.2, RDW Std Deviation 51.9 H, RDW Coeff of Roldan 18.2 H, Plt Count 54 L, MPV 9.8, Immature Gran % (Auto) 2.000 H, Neut % (Auto) 72.0 H, Lymph % (Auto) 11.3 L, [place] % (Auto) 12.6 H, Eos % (Auto) 1.6, Baso % (Auto) 0.5, Absolute Neuts (auto) 4.4, Absolute Lymphs (auto) 0.69 L, Nucleated RBC % 0 12/21/21 05:45: Sodium 138, Potassium 3.0 L, Chloride 104, Carbon Dioxide 28.0, Anion Gap 6, BUN 11, Creatinine 0.52 L, Estim Creat Clear Calc 41.48, Est GFR (MDRD) Af Amer 149, Est GFR (MDRD) Non-Af 123, BUN/Creatinine Ratio 21.0 H, Glucose 95, Calcium 8.5 Micro: Microbiology 12/20/21 15:40 Stool Stool Occult Blood (LUIS) - Final Occult Blood Positive Radiography Diagnostic Testing: Radiology Impression Brain CT 12/20/21 15:35 IMPRESSION: No acute findings in the head/brain. There is been no change from the reference exam. Electronically Signed: Danny Kulkarni MD at 16:30 EDT , Pelvis X-Ray 12/20/21 15:38 IMPRESSION: No evidence of displaced pelvic fracture. Electronically Signed: Danny Kulkarni MD at 16:48 EDT , Chest X-Ray 12/20/21 16:21 IMPRESSION: No change in the appearance of the chest from reference exam. Electronically Signed: Danny Kulkarni MD at 16:36 EDT , Rhythm Strip Rhythm Strip: Sinus Rhythm Rate: 85 Ectopy: None Physical Exam Narrative Physical exam: General: Alert, Oriented x3, Cooperative, appears frail, anxious HEENT: Atraumatic Oral: Moist Mucosa Neck: Supple Lungs: Clear to auscultation Cardiovascular: HS I+II, regular, no murmurs Abdomen: Bowel Sounds Present, Soft, Non Tender Extremities: No edema Skin: No rashes, No breakdown Neurological: Grossly intact Psych/Mental Status: Appropriate Assessment & Plan Assessment/Plan (1) Gallbladder cancer, carcinoma: (2) Migraines: QUALIFIERS: Migraine type: with aura Status migrainosus presence: without status migrainosus Intractability: not intractable Qualified Code(s): G43.109 - Migraine with aura, not intractable, without status migrainosus PLAN: Plan 1. Acute GI bleed secondary to likely secondary acute bleeding duodenal ulcer, Pathology from biopsies from EGD showed adenocarcinoma Patient with recent admission for the above, status post treatment with heater probe GI reconsulted, continue on IV PPI twice daily 2. Acute blood loss anemia on chronic anemia secondary to #1 Status post 2 units of packed RBCs Hemoglobin is 9.7 today Continue on IV PPI, sucralfate, misoprostol 3.Suspected gastroparesis in the previous admission No nausea and vomiting here We will continue to monitor 4. Hypokalemia, replaced, recheck in a.m. 5. Metastatic gallbladder CA with obstructive jaundice from extrinsic compression from gallbladder cancer CT of the abdomen and pelvis on 12/15/2021 showed right-sided cardia retroperitoneal, cassie hepatis lymph nodes, small left effusion, large masses within the mid abdomen especially in the retroperitoneum suspicious for metastatic disease.? Large area of masslike density within the right hepatic lobe and scattered small masses throughout the liver suspicious of metastatic disease. Patient was in hospice, oncology also following the outpatient 6. Panic attacks/anxiety disorder, continue on BuSpar and Ativan as needed 7. Pancytopenia/bi-cytopenia likely secondary to chemotherapy Remains thrombocytopenic, about her baseline 8. Hypertension, controlled, continue on losartan 9. DVT prophylaxis?SCDs Charges/Coding Visit Charges Inpatient E&M: 42966 Subs Hosp L2
[2021-12-21 12:52] LABS: Pathologist Review Reviewed
--- NOTE | 2021-12-21 13:20 | CASEMGMT ---
Addendum entered by Radha Bravo 12/21/21 13:46: SW called Hospice and spoke with Justyna. Justyna asked that [facility] call Hospice and let them know when patient is discharged. SW put a green sheet on the chart. Plan: d/c home on [facility]. Radha ARCOS Original Note: Per chart patient revoked Hospice to come in to the hospital. SW met with patient and her family. Introduced self and role at [facility]. SW asked if the plan is to resume Hospice once she returns home. Patient said that is the plan. SW let her know SW will make sure Hospice is aware when she is discharged. Radha ARCOS
--- NOTE | 2021-12-21 14:55 | CASEMGMT ---
Patient has a Healthcare Power of Pigskin Trimmer and Living Will. Patient is aware they are not on file and to bring a copy in when able. Patient's daughter Ace is her Healthcare POA. Radha Bravo WARE [employer] [place]
[2021-12-21] MEDS: LORazepam 0.5 MG Tablet PO (15:48)
--- NOTE | 2021-12-21 19:34 | CON.PCM_ITS ---
Assessment & Plan Assessment/Plan (1) Acute upper GI bleed: PLAN: I will put her on a PPI drip and octreotide drip. The plan is to hopef ully have this stop with those 2 medicines and avoid having to do an upper endoscopy this weekend. I will order a duodenal stent in order to cover the metastatic ulcer that is in her duodenum. I would avoid NSAIDs and anticoagulation at this time. Recommend to check hemoglobin every 12 hours to rodrigo kerns sure that she does not lose too much blood. Recommend to keep the hemoglobin greater than 7 and I will continue to follow. HPI Consult Data Date of Consult: 12/21/21 HPI Narrative Reason for Consultation: GI bleed HPI Narrative: JENNY RAZA, is a 71 F who presented to the ED with worsening anemia.? She has a past medical history of adenocarcinoma of the gallbladder with metastasis to the liver, stage IV, presents with feelings of shortness of breath and generalized weakness.? She has had transfusions in the past.? They state that on Friday, approximately 4 days ago, her hemoglobin was 9.2.? She had received a b lood transfusion on Friday as she has had multiple blood transfusion in the past.? Previously before her transfusion on Friday it was just above 7.? ?She saw her oncologist, Dr. Stephens, today who did laboratory work and her hemoglobin is low at 6.5.? She denies any black tarry stool.? No hematemesis.? She does not take blood thinners and denies any bleeding diathesis.? She states that she was sent here for blood transfusion, and basically to be admitted and have endoscopy performed because she could have a bleeding ulcer versus the tumor itself in the gallbladder bleeding.? She denies any exacerbating or alleviating factors. On previous visit she underwent an upper endoscopy and was discovered to have a large bleeding duodenal bulb ulcer. The ulcer was treated endoscopically. Biopsies from ulcer and showed adenocarcinoma likely consistent with metastatic gallbladder cancer. Her hemoglobin was 6.8 on admission and she received 2 units of packed red blood cells. At this time she appears to be more stable. [facility] Medical History Anemia Chemotherapy induced diarrhea Former tobacco use Gallbladder cancer Gallbladder cancer, carcinoma HTN (hypertension) Migraines Rupture of small intestine Seasonal allergies Vaginal atrophy Home Medications potassium chloride 20 mEq tablet,extended release(part/cryst) 20 meq PO TID supplement 05/18/21 [History Last Taken 12/20/21] acetaminophen 325 mg tablet 650 mg PO BID PRN Migraine Headache 12/13/21 [History Last Taken 12/20/21 10:00] losartan 25 mg tablet 25 mg PO DAILY BP 12/13/21 [History Last Taken 12/19/21 16:00] magnesium chloride 71.5 mg (magnesium chloride) tablet,delayed release (Slow- Mag) 71.5 mg PO TID SUPPLEMENT 12/13/21 [History Last Taken 12/20/21] buspirone 5 mg tablet 5 mg PO TID ANXIETY 12/20/21 [History Last Taken 12/19/21] metoclopramide HCl 5 mg tablet (Reglan) 5 mg PO TID STOMACH 12/20/21 [History Last Taken 12/20/21] misoprostol 200 mcg tablet 200 mcg PO TID STOMACH 12/20/21 [History Last Taken 12/20/21] pantoprazole 40 mg tablet,delayed release 40 mg PO BID GERD 12/20/21 [History Last Taken 12/20/21 10:00] sucralfate 1 gram tablet 1 g PO BID GERD 12/20/21 [History Last Taken 12/19/21] Allergy/AdvReac Type Severity Reaction Status Date / Time erythromycin base Allergy Mild upset Verified 12/20/21 12:52 stomach Sulfa (Sulfonamide Allergy Mild dizziness, Verified 12/20/21 12:52 Antibiotics) nausea, sweaty diphenhydramine AdvReac Other Verified 12/20/21 12:52 [From Benadryl] prochlorperazine AdvReac Chest Verified 12/20/21 12:52 [From Compazine] tightness Family History Brother Prostate cancer Drug abuse Alcohol abuse Mother Hypertension HLD (hyperlipidemia) Pulmonary embolism Father Glaucoma Surgical History Bartholin cyst History of unilateral salpingectomy S/P ectopic S/P small bowel resection Social History household members: spouse Smoking Status: Former smoker alcohol intake: never substance use type: does not use caffeine: No what type of physical activity do you participate in: walking, yoga and other details: ti kaye for balance frequency: daily seatbelt use: always do you feel safe at home: Yes additional social history: -[place] Patient works at [employer] Narrative Admission Review of Systems: CONSTITUTIONAL: No weight loss, fever, chills, + weakness or fatigue. HEENT: Eyes: No visual loss, blurred vision, double vision or yellow sclerae. Ears, Nose, Throat: No hearing loss, sneezing, congestion, runny nose or sore throat. SKIN: No rash or itching, lesions, wounds. CARDIOVASCULAR: No chest pain, chest pressure or chest discomfort, palpitations, edema, orthopnea, syncopal events. RESPIRATORY: + shortness of breath, No cough or sputum, wheezing, hemoptysis. GASTROINTESTINAL: No anorexia, nausea, vomiting or diarrhea, abdominal pain, melena, BRBPR. GENITOURINARY: No dysuria, frequency, urgency or retention. NEUROLOGICAL: No headache, dizziness, syncope, paralysis, ataxia, numbness or tingling in the extremities, focal weakness, change in bowel or bladder control, seizure. MUSCULOSKELETAL: + muscle, back pain, joint pain or stiffness. HEMATOLOGIC: + anemia, bleeding or bruising. LYMPHATICS: + enlarged nodes. No history of splenectomy. PSYCHIATRIC: No history of depression or anxiety. ENDOCRINOLOGIC: No reports of sweating, cold or heat intolerance. No polyuria or polydipsia. ALLERGIES: No history of asthma, hives, eczema or rhinitis. Physical Exam Narrative Physical exam: General: Alert, Oriented x3, Cooperative, appears frail, anxious HEENT: Atraumatic Oral: Moist Mucosa Neck: Supple Lungs: Clear to auscultation Cardiovascular: HS I+II, regular, no murmurs Abdomen: Bowel Sounds Present, Soft, Non Tender Extremities: No edema Skin: No rashes, No breakdown Neurological: Grossly intact Psych/Mental Status: Appropriate Lab / Micro Data Result Diagrams: 12/21/21 05:45 12/21/21 05:45 Labs: Laboratory Results - last 24 hr 12/20/21 15:50: Diff Path Review Reviewed 12/20/21 15:50: Blood Type O POSITIVE, Antibody Screen NEGATIVE, Crossmatch See Detail 12/21/21 05:45: WBC 6.1, RBC 3.19 L, Hgb 9.7 L, Hct 29.2 L, MCV 91.5, MCH 30.4, MCHC 33.2, RDW Std Deviation 51.9 H, RDW Coeff of Roldan 18.2 H, Plt Count 54 L, MPV 9.8, Immature Gran % (Auto) 2.000 H, Neut % (Auto) 72.0 H, Lymph % (Auto) 11.3 L, [place] % (Auto) 12.6 H, Eos % (Auto) 1.6, Baso % (Auto) 0.5, Absolute Neuts (auto) 4.4, Absolute Lymphs (auto) 0.69 L, Nucleated RBC % 0 12/21/21 05:45: Sodium 138, Potassium 3.0 L, Chloride 104, Carbon Dioxide 28.0, Anion Gap 6, BUN 11, Creatinine 0.52 L, Estim Creat Clear Calc 41.48, Est GFR (MDRD) Af Amer 149, Est GFR (MDRD) Non-Af 123, BUN/Creatinine Ratio 21.0 H, Glucose 95, Calcium 8.5 Micro: Microbiology 12/20/21 15:40 Stool Stool Occult Blood (LUIS) - Final Occult Blood Positive Rhythm Strip Rhythm Strip: Sinus Rhythm Rate: 85 Ectopy: None Charges/Coding Visit Charges Inpatient E&M: 54482 Init Hosp L2
[2021-12-22] VITALS (9 sets, daily range): BP systolic 131–147; BP diastolic 75–82; PULSE 68–80; RESP 18; TEMP 36.3–36.7; O2SAT 96–99
[2021-12-22] MEDS: Acetaminophen 500 MG Tablet 1000 MG PO ×3 (06:37→21:03)
[2021-12-22] MEDS: miSOPROStol 200 MCG Tablet PO ×3 (06:38→21:04)
[2021-12-22 06:56] LABS: Absolute Lymphocyte Count 0.82 X10^3/uL (0.83-4.51); Absolute Neutrophil Count 4.9 X10^3/uL (2.0-7.7); Basophil# 0.02 X10^3/uL; Basophil% 0.3 % (0-1); Eosinophil# 0.16 X10^3/uL; Eosinophils% 2.3 % (0-5); Hemoglobin 9.6 g/dL (12.0-15.0); Lymphocyte # 0.82 X10^3/ul (0.83-4.51); Mean Corp Hgb Conc 34.3 g/dL (32-36); Mean Corpuscular Hgb 31.4 pg (27.0-32.0); Mean Corpuscular Volume 91.5 fL (81-99); Monocyte# 0.83 X10^3/uL; Monocyte% 12.2 % (0-10); NRBC Flagged by Analyzer 0 % (0-5); Neutrophil # 4.93 X10^3/uL (2.7-7.7); Neutrophil % 72.3 % (47-70); POSITIVE COUNT YES; Platelet Count 81 K/mm3 (150-450); RBC Distribution Width CV 19.7 % (11.6-14.6); RBC Distribution Width SD 57.1 fl (35.1-43.9); Red Blood Count 3.06 M/mm3 (4.2-5.4); White Blood Count 6.8 K/mm3 (4.4-11.0)
[2021-12-22 07:21] LABS: ALB/GLOB Ratio 0.6 RATIO (0.9-2.4); AST(SGOT) 36 U/L (15-37); Alanine Aminotransfer ALT/SGPT 27 U/L (13-56); Albumin, Serum 2.4 g/dL (3.2-5.0); Alkaline Phosphatase 279 U/L (45-117); Anion Gap 8 (5-15); BUN 11 mg/dL (7-18); BUN/Creat Ratio 17.2 RATIO (10-20); Calcium,Total 8.9 mg/dL (8.5-10.1); Chloride 101 mmol/L (98-107); Creatinine, Serum 0.64 mg/dL (0.55-1.02); EST Glomerular Filtration Rate 98 mL/min (>60); Est Glom Filt Rate - Afr Amer 118 mL/min (>60); Estimated Creatinine Clearance 41.48 ml/min; Glucose 134 mg/dL (74-106); Potassium 3.2 mmol/L (3.5-5.1); Protein, Total 6.4 g/dL (6.4-8.2); Sodium Level 137 mmol/L (136-145)
[2021-12-22] MEDS: LORazepam 0.5 MG Tablet 0.125 MG PO (07:26)
[2021-12-22] MEDS: Sucralfate 1 GM Tablet PO ×2 (10:23→21:04)
[2021-12-22] MEDS: Potassium Chloride Oral Tablet 20 MEQ 60 MEQ PO (10:23)
[2021-12-22] MEDS: Losartan Potassium 25 MG Tablet PO (10:23)
[2021-12-22] MEDS: Sodium Ferric Gluconat 250 MG in 0.9% Normal Saline 250 ML 135 MG IV (10:33)
--- NOTE | 2021-12-22 11:31 | PN.HOSP_ITS ---
Subjective Subjective Follow-up on acute GI bleed/metastatic gallbladder CA: Patient was seen and examined. Continues to have panic attack. She has been getting Ativan. She insisted on having 0.25 mg of 0.5 mg Ativan. I discussed other strategies of managing anxiety with patient including deep breathing, talking to family, meditation,. Talked about switching to Xanax. Patient was open to that. We will do a trial of Xanax 0.25 mg x 1 Objective Data Objective Data Vital Signs: Vital Signs Temp Pulse Resp BP Pulse Ox O2 Del Method 97.9 F 73 18 147/81 H 97 Room Air 12/22/21 09:25 12/22/21 11:00 12/22/21 09:25 12/22/21 09:25 12/22/21 09:25 12/22/21 10:12 Oxygen Delivery Method Room Air Weight: 49.487 kg Body Mass Index (BMI) 17.6 Intake & Output: Intake and Output for Last 24 Hours 12/20/21 12/21/21 12/22/21 23:59 23:59 23:59 Intake Total 110 / 310 3360 / 3360 134.17 / 134.17 Balance 110 / 310 3360 / 3360 134.17 / 134.17 Lab / Micro Data Result Diagrams: 12/22/21 05:35 12/22/21 05:35 Labs: Laboratory Results - last 24 hr 12/20/21 15:50: Diff Path Review Reviewed 12/22/21 05:35: WBC 6.8, RBC 3.06 L, Hgb 9.6 L, Hct 28.0 L, MCV 91.5, MCH 31.4, MCHC 34.3, RDW Std Deviation 57.1 H, RDW Coeff of Roldan 19.7 H, Plt Count 81 L, MPV 11.0, Immature Gran % (Auto) 0.900, Neut % (Auto) 72.3 H, Lymph % (Auto) 12.0 L, [place] % (Auto) 12.2 H, Eos % (Auto) 2.3, Baso % (Auto) 0.3, Absolute Neuts (auto) 4.9, Absolute Lymphs (auto) 0.82 L, Nucleated RBC % 0 12/22/21 05:35: Sodium 137, Potassium 3.2 L, Chloride 101, Carbon Dioxide 28.0, Anion Gap 8, BUN 11, Creatinine 0.64, Estim Creat Clear Calc 41.48, Est GFR (MDRD) Af Amer 118, Est GFR (MDRD) Non-Af 98, BUN/Creatinine Ratio 17.2, Glucose 134 H, Calcium 8.9, Total Bilirubin 2.20 H, AST 36, ALT 27, Alkaline Phosphatase 279 H, Total Protein 6.4, Albumin 2.4 L, Globulin 4.0, Albumin/Globulin Ratio 0.6 L Micro: Microbiology 12/20/21 15:40 Stool Stool Occult Blood (LUIS) - Final Occult Blood Positive Rhythm Strip Rhythm Strip: Sinus Rhythm Rate: 85 Ectopy: None Physical Exam Narrative Physical exam: General: Alert, oriented x3, cooperative, appears frail, anxious HEENT: Atraumatic Oral: Moist Mucosa Neck: Supple Lungs: Clear to auscultation Cardiovascular: HS I+II, regular, no murmurs Abdomen: Bowel Sounds Present, Soft, Non Tender Extremities: No edema Skin: No rashes, No breakdown Neurological: Grossly intact Psych/Mental Status: Appropriate Assessment & Plan Assessment/Plan (1) Gallbladder cancer, carcinoma: (2) Migraines: QUALIFIERS: Migraine type: with aura Status migrainosus presence: without status migrainosus Intractability: not intractable Qualified Code(s): G43.109 - Migraine with aura, not intractable, without status migrainosus PLAN: Plan 1. Acute GI bleed secondary to likely secondary acute bleeding duodenal metastatic ulcer Started on PPI drip as well as octreotide drip No hematochezia seen today Pathology from biopsies from EGD showed adenocarcinoma Patient with recent admission for the above, status post treatment with heater probe GI following 2. Acute blood loss anemia on chronic anemia secondary to #1 Status post 2 units of packed RBCs Hemoglobin is 9.6 today Continue on IV PPI, sucralfate, misoprostol 3. Suspected gastroparesis in the previous admission No nausea and vomiting here We will continue to monitor 4. Hypokalemia, replaced, recheck in a.m. 5. Metastatic gallbladder CA with obstructive jaundice from extrinsic compression from gallbladder cancer CT of the abdomen and pelvis on 12/15/2021 showed right-sided cardia retroperitoneal, cassie hepatis lymph nodes, small left effusion, large masses within the mid abdomen especially in the retroperitoneum suspicious for metastatic disease.? Large area of masslike density within the right hepatic lobe and scattered small masses throughout the liver suspicious of metastatic disease. Patient was in hospice, oncology also following the outpatient 6. Panic attacks/anxiety disorder, continue on BuSpar and Ativan as needed 7. Pancytopenia/bi-cytopenia likely secondary to chemotherapy Remains thrombocytopenic, about her baseline 8. Hypertension, controlled, continue on losartan 9. DVT prophylaxis?SCDs Charges/Coding Visit Charges Inpatient E&M: 95769 Subs Hosp L2
[2021-12-22] MEDS: ALPRAZolam 0.25 MG Tablet PO ×2 (12:29→21:04)
[2021-12-22] MEDS: 0.9 % NaCl (Sterile) Posiflush 10 mL IV ×2 (12:57→15:37)
[2021-12-22] MEDS: busPIRone 5 MG Tablet PO (21:04)
[2021-12-23] VITALS (10 sets, daily range): BP systolic 125–142; BP diastolic 69–80; PULSE 63–78; RESP 16–18; TEMP 36.3–36.9; O2SAT 95–100
[2021-12-23] MEDS: Acetaminophen 500 MG Tablet 1000 MG PO ×3 (06:20→20:53)
[2021-12-23] MEDS: miSOPROStol 200 MCG Tablet PO ×3 (06:21→20:53)
[2021-12-23] MEDS: ALPRAZolam 0.25 MG Tablet PO ×3 (06:28→20:53)
[2021-12-23] MEDS: Sucralfate 1 GM Tablet PO ×2 (11:20→20:53)
[2021-12-23] MEDS: Losartan Potassium 25 MG Tablet PO (11:20)
[2021-12-23 13:29] LABS: Absolute Lymphocyte Count 0.94 X10^3/uL (0.83-4.51); Absolute Neutrophil Count 4.4 X10^3/uL (2.0-7.7); Basophil# 0.03 X10^3/uL; Basophil% 0.5 % (0-1); Eosinophil# 0.16 X10^3/uL; Eosinophils% 2.5 % (0-5); Hemoglobin 9.2 g/dL (12.0-15.0); Lymphocyte # 0.94 X10^3/ul (0.83-4.51); Lymphocyte % 14.4 % (19-41); Mean Corp Hgb Conc 32.9 g/dL (32-36); Mean Corpuscular Hgb 30.9 pg (27.0-32.0); Mean Platelet Vol. 9.3 fl (6.2-12.0); Monocyte# 0.96 X10^3/uL; Monocyte% 14.7 % (0-10); NRBC Flagged by Analyzer 0 % (0-5); Neutrophil # 4.38 X10^3/uL (2.7-7.7); Neutrophil % 67.1 % (47-70); POSITIVE MORPHOLOGY YES; Platelet Count 127 K/mm3 (150-450); RBC Distribution Width CV 20.9 % (11.6-14.6); RBC Distribution Width SD 64.5 fl (35.1-43.9); Red Blood Count 2.98 M/mm3 (4.2-5.4); White Blood Count 6.5 K/mm3 (4.4-11.0)
[2021-12-23 13:30] LABS: Differential Indicated SCAN CRITERIA MET
[2021-12-23 13:41] LABS: Phosphorus 2.8 mg/dL (2.5-4.9)
[2021-12-23 13:42] LABS: ALB/GLOB Ratio 0.6 RATIO (0.9-2.4); AST(SGOT) 34 U/L (15-37); Alanine Aminotransfer ALT/SGPT 23 U/L (13-56); Albumin, Serum 2.4 g/dL (3.2-5.0); Alkaline Phosphatase 265 U/L (45-117); Anion Gap 6 (5-15); BUN 14 mg/dL (7-18); BUN/Creat Ratio 19.4 RATIO (10-20); Calcium,Total 8.4 mg/dL (8.5-10.1); Chloride 99 mmol/L (98-107); Creatinine, Serum 0.72 mg/dL (0.55-1.02); EST Glomerular Filtration Rate 85 mL/min (>60); Est Glom Filt Rate - Afr Amer 103 mL/min (>60); Estimated Creatinine Clearance 41.48 ml/min; Globulin 3.9 g/dL (2.2-4.2); Glucose 125 mg/dL (74-106); Magnesium 1.4 mg/dL (1.6-2.6); Potassium 3.3 mmol/L (3.5-5.1); Protein, Total 6.3 g/dL (6.4-8.2); Sodium Level 135 mmol/L (136-145)
[2021-12-23 14:13] LABS: Differential Comment SCANNED
[2021-12-23 14:14] LABS: Anisocytosis 2+; Macrocytosis 1+; Microcytosis 1+
--- NOTE | 2021-12-23 14:55 | PCM.PN.HOSP ---
Subjective Subjective Follow-up on acute GI bleed/metastatic gallbladder CA: Patient was seen and examined. She feels much improved in terms of anxiety since started on Xanax. She is able to tolerate an advancement in her diet. She denies any hematochezia or dark stools. Objective Data Objective Data Vital Signs: Vital Signs Temp Pulse Resp BP Pulse Ox O2 Del Method 98.4 F 65 16 140/79 H 97 Room Air 12/23/21 11:12 12/23/21 11:12 12/23/21 11:12 12/23/21 11:12 12/23/21 11:12 12/23/21 11:12 Oxygen Delivery Method Room Air Weight: 49.487 kg Body Mass Index (BMI) 17.6 Intake & Output: Intake and Output for Last 24 Hours 12/21/21 12/22/21 12/23/21 23:59 23:59 23:59 Intake Total 3360 / 3360 1235.17 / 1235.17 192.5 / 192.5 Balance 3360 / 3360 1235.17 / 1235.17 192.5 / 192.5 Lab / Micro Data Result Diagrams: 12/23/21 13:18 12/23/21 13:18 Labs: Laboratory Results - last 24 hr 12/23/21 13:18: WBC 6.5, RBC 2.98 L, Hgb 9.2 L, Hct 28.0 L, MCV 94.0, MCH 30.9, MCHC 32.9, RDW Std Deviation 64.5 H, RDW Coeff of Roldan 20.9 H, Plt Count 127 L, MPV 9.3, Immature Gran % (Auto) 0.800, Neut % (Auto) 67.1, Lymph % (Auto) 14.4 L, [place] % (Auto) 14.7 H, Eos % (Auto) 2.5, Baso % (Auto) 0.5, Absolute Neuts (auto) 4.4, Absolute Lymphs (auto) 0.94, Nucleated RBC % 0, Differential Comment SCANNED, Anisocytosis 2+, Microcytosis 1+, Macrocytosis 1+ 12/23/21 13:18: Sodium 135 L, Potassium 3.3 L, Chloride 99, Carbon Dioxide 30.0, Anion Gap 6, BUN 14, Creatinine 0.72, Estim Creat Clear Calc 41.48, Est GFR (MDRD) Af Amer 103, Est GFR (MDRD) Non-Af 85, BUN/Creatinine Ratio 19.4, Glucose 125 H, Calcium 8.4 L, Magnesium 1.4 L, Total Bilirubin 1.70 H, AST 34, ALT 23, Alkaline Phosphatase 265 H, Total Protein 6.3 L, Albumin 2.4 L, Globulin 3.9, Albumin/Globulin Ratio 0.6 L 12/23/21 13:18: Phosphorus 2.8 Micro: Microbiology 12/20/21 15:40 Stool Stool Occult Blood (LUIS) - Final Occult Blood Positive Rhythm Strip Rhythm Strip: Sinus Rhythm Rate: 85 Ectopy: None Physical Exam Narrative Physical exam: General: Alert, oriented x3, cooperative, appears frail, anxious HEENT: Atraumatic Oral: Moist Mucosa Neck: Supple Lungs: Clear to auscultation Cardiovascular: HS I+II, regular, no murmurs Abdomen: Bowel Sounds Present, Soft, Non Tender Extremities: No edema Skin: No rashes, No breakdown Neurological: Grossly intact Psych/Mental Status: Appropriate Assessment & Plan Assessment/Plan (1) Gallbladder cancer, carcinoma: (2) Migraines: QUALIFIERS: Migraine type: with aura Status migrainosus presence: without status migrainosus Intractability: not intractable Qualified Code(s): G43.109 - Migraine with aura, not intractable, without status migrainosus PLAN: Plan 71-year-old female with past medical history of metastatic gallbladder CA, 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 Patient was recently discharged on 12/18/2021 with similar presentations. She was found to have duodenal ulcer and biopsy showed adenocarcinoma 1. Acute GI bleed secondary to acute bleeding duodenal metastatic ulcer Continue on PPI drip as well as octreotide drip, sucralfate and misoprostol No hematochezia seen today Pathology from biopsies from recent EGD showed adenocarcinoma Patient with recent admission for the above, status post treatment with heater probe GI following 2. Acute blood loss anemia on chronic anemia secondary to #1 Status post 2 units of packed RBCs Hemoglobin is 9.2 today Will trend labs in am 3. Panic attacks/anxiety disorder, slowly improving Patient did well with start of Xanax Continue on Xanax 0.25 mg twice daily Continue BuSpar 4. Suspected gastroparesis in the previous admission No nausea and vomiting here. Patient able to tolerate an advancement in her diet We will continue to monitor 5. Hypokalemia/hypomagnesemia, replaced, recheck in a.m. 6. Metastatic gallbladder CA with obstructive jaundice from extrinsic compression from gallbladder cancer CT of the abdomen and pelvis on 12/15/2021 showed right-sided cardia retroperitoneal, cassie hepatis lymph nodes, small left effusion, large masses within the mid abdomen especially in the retroperitoneum suspicious for metastatic disease.? Large area of masslike density within the right hepatic lobe and scattered small masses throughout the liver suspicious of metastatic disease. Patient was in hospice, oncology also following the outpatient 7. Pancytopenia/bi-cytopenia likely secondary to chemotherapy Remains thrombocytopenic, about her baseline 8. Hypertension, controlled, continue on losartan 9. DVT prophylaxis?SCDs Charges/Coding Visit Charges Inpatient E&M: 06670 Subs Hosp L2
[2021-12-23] MEDS: Potassium Chloride Oral Tablet 20 MEQ 60 MEQ PO (16:40)
[2021-12-23] MEDS: Magnesium Sulfate 4gm/100mL 4 GM/100 ML IV.SOLN. IV (16:49)
--- NOTE | 2021-12-23 19:05 | NURSING ---
Charting reviewed with Herson Melendrez RN
[2021-12-23 23:20] LABS: Bacteria 0 SEEN /hpf (None Seen); Mucous, Urine 0 SEEN /hpf (<or=2+); White Blood Cells 0 SEEN /hpf (0-5)
[2021-12-23 23:22] LABS: Color, Urine Straw (Yellow); Glucose, Dipstick Normal (Normal); Ketone-Dipstick Negative (Negative); Leukocyte Esterase-Dipstick Negative /ul (Negative); Nitrite-Dipstick Negative (Negative); Occult Blood-Urine 25 /ul (Negative); Protein-Dipstick Negative (Negative); Urine Bilirubin Dipstick Negative (Negative); Urine Clarity Clear (Clear); Urine Urobilinogen Normal (Normal)
[2021-12-23 23:28] LABS: Red Blood Cells-Urine 0-5 SEEN /hpf (0-5); Squamous Epithelial Cells - UA 0-5 SEEN /hpf (5-10)
[2021-12-24] VITALS (9 sets, daily range): BP systolic 114–145; BP diastolic 72–80; PULSE 68–82; RESP 14–18; TEMP 36.6–36.9; O2SAT 96–99
[2021-12-24 05:04] LABS: Absolute Lymphocyte Count 0.83 X10^3/uL (0.83-4.51); Absolute Neutrophil Count 4.9 X10^3/uL (2.0-7.7); Basophil# 0.03 X10^3/uL; Basophil% 0.4 % (0-1); Eosinophil# 0.18 X10^3/uL; Eosinophils% 2.6 % (0-5); Hematocrit 27.4 % (37-47); Hemoglobin 9.4 g/dL (12.0-15.0); Lymphocyte # 0.83 X10^3/ul (0.83-4.51); Mean Corp Hgb Conc 34.3 g/dL (32-36); Mean Corpuscular Hgb 31.9 pg (27.0-32.0); Mean Corpuscular Volume 92.9 fL (81-99); Mean Platelet Vol. 9.6 fl (6.2-12.0); Monocyte# 0.93 X10^3/uL; Monocyte% 13.4 % (0-10); NRBC Flagged by Analyzer 0 % (0-5); Neutrophil # 4.92 X10^3/uL (2.7-7.7); POSITIVE MORPHOLOGY YES; Platelet Count 125 K/mm3 (150-450); RBC Distribution Width CV 21.3 % (11.6-14.6); RBC Distribution Width SD 67.7 fl (35.1-43.9); Red Blood Count 2.95 M/mm3 (4.2-5.4); White Blood Count 6.9 K/mm3 (4.4-11.0)
[2021-12-24] MEDS: Acetaminophen 500 MG Tablet 1000 MG PO ×3 (05:08→21:24)
[2021-12-24] MEDS: miSOPROStol 200 MCG Tablet PO ×3 (05:08→21:26)
[2021-12-24 05:10] LABS: Differential Indicated SCAN CRITERIA MET
[2021-12-24 06:00] LABS: Anisocytosis 3+; Differential Comment SCANNED; Macrocytosis 1+; Microcytosis 1+
[2021-12-24 06:01] LABS: Polychromasia RARE; Schistocytes RARE
[2021-12-24 06:04] LABS: ALB/GLOB Ratio 0.6 RATIO (0.9-2.4); AST(SGOT) 36 U/L (15-37); Alanine Aminotransfer ALT/SGPT 19 U/L (13-56); Albumin, Serum 2.3 g/dL (3.2-5.0); Alkaline Phosphatase 253 U/L (45-117); Anion Gap 7 (5-15); BUN 13 mg/dL (7-18); BUN/Creat Ratio 18.1 RATIO (10-20); Calcium,Total 8.4 mg/dL (8.5-10.1); Chloride 102 mmol/L (98-107); Creatinine, Serum 0.72 mg/dL (0.55-1.02); EST Glomerular Filtration Rate 86 mL/min (>60); Est Glom Filt Rate - Afr Amer 104 mL/min (>60); Estimated Creatinine Clearance 41.48 ml/min; Globulin 3.6 g/dL (2.2-4.2); Glucose 131 mg/dL (74-106); Potassium 3.8 mmol/L (3.5-5.1); Protein, Total 5.9 g/dL (6.4-8.2); Sodium Level 137 mmol/L (136-145)
[2021-12-24] MEDS: ALPRAZolam 0.25 MG Tablet PO ×2 (06:32→21:24)
[2021-12-24] MEDS: Potassium Chloride Oral Tablet 20 MEQ 40 MEQ PO (09:38)
[2021-12-24] MEDS: Sucralfate 1 GM Tablet PO ×2 (09:39→21:26)
[2021-12-24] MEDS: Losartan Potassium 25 MG Tablet PO (09:39)
--- NOTE | 2021-12-24 14:04 | PCM.PN.HOSP ---
Subjective Subjective DOS 12-24-2021 CC: I am feeling down Ms. Perez reports this morning that she has been feeling down due to her cancer diagnosis. Appetite is okay, no abdominal pain, no chest pain or shortness of breath. No bowel movement yet today, has not noted overt bleeding however. Seen with daughter at bedside and there is a question about her Xanax being changed from 3 times daily as needed to twice daily scheduled without a third dose. She reports it significantly helps her anxiety, more so than the Ativan she was on as an outpatient intermittently. She is still interested in hospice on discharge, however family discussed potentially waiting until after genetic markers are back. They will continue to discuss this. Objective Data Objective Data Vital Signs: Vital Signs Temp Pulse Resp BP Pulse Ox O2 Del Method 98.4 F 80 16 133/72 H 97 Room Air 12/24/21 09:43 12/24/21 09:43 12/24/21 09:43 12/24/21 09:43 12/24/21 09:43 12/24/21 10:00 Oxygen Delivery Method Room Air Weight: 49.487 kg Body Mass Index (BMI) 17.6 Intake & Output: Intake and Output for Last 24 Hours 12/22/21 12/23/21 12/24/21 23:59 23:59 23:59 Intake Total 1235.17 / 1235.17 1601.17 / 1601.17 100 / 100 Balance 1235.17 / 1235.17 1601.17 / 1601.17 100 / 100 Medical Nutrition Assessment Dietitian: Malnutrition Criteria Met Start: 12/24/21 11:10 Freq: Status: Active Protocol: Document 12/24/21 12:21 RMA (Rec: 12/24/21 12:22 RMA [id number]) Nutrition Malnutrition Evidence of Malnutrition Exists Yes Malnutrition (moderate): Chronic Evidenced By Suboptimal Energy Intake ( Moderate),Weight Loss ( Moderate),Physical Changes ( Moderate) Clinical Problem Chronic Disease or Condition Related Malnutrition Etiology Moderate to severe pro-albert malnutrition in the context of chronic metastatic disease related to increased energy expenditure and inadequate oral intake Signs/Symptoms as evidenced by moderate muscle/fat wasting in the face , clavicle, arms and legs, ~9% x past 7 months or so, BMI 17 .6, and oral intake meeting less than 75% estimated nutrition needs x past 6-8 months Status Active Problem Unintended Weight Loss Etiology related to predicted inadequate oral intake and increased energy expenditure Signs/Symptoms as evidenced by 9% weight loss in 7 months Status Active Problem Recommendation Dietitian Recommendations/Changes Continue regular diet as ordered. ONS: will offer johns magic cup BID w/ lunch and dinner and provide chocolate milkshake (milk and ice cream only) as per pt request. Pt refusing ensure products. Encouraged pt to bring home ONS as desired since she dislikes ensure products and carnation instant breakfast. Lab / Micro Data Result Diagrams: 12/24/21 04:23 12/24/21 04:23 Labs: Laboratory Results - last 24 hr 12/23/21 13:18: Differential Comment SCANNED, Anisocytosis 2+, Microcytosis 1+, Macrocytosis 1+ 12/23/21 23:18: Urine Color Straw, Urine Clarity Clear, Urine pH 6.0, Ur Specific [place] 1.010, Urine Protein Negative, Urine Glucose (UA) Normal, Urine Ketones Negative, Urine Occult Blood 25 H, Urine Nitrite Negative, Urine Bilirubin Negative, Urine Urobilinogen Normal, Ur Leukocyte Esterase Negative, Urine RBC 0-5 SEEN, Urine WBC 0 SEEN, Ur Squamous Epith Cells 0-5 SEEN, Urine Bacteria 0 SEEN, Urine Mucus 0 SEEN 12/24/21 04:23: WBC 6.9, RBC 2.95 L, Hgb 9.4 L, Hct 27.4 L, MCV 92.9, MCH 31.9, MCHC 34.3, RDW Std Deviation 67.7 H, RDW Coeff of [place] 21.3 H, Plt Count 125 L, MPV 9.6, Immature Gran % (Auto) 0.600, Neut % (Auto) 71.0 H, Lymph % (Auto) 12.0 L, [place] % (Auto) 13.4 H, Eos % (Auto) 2.6, Baso % (Auto) 0.4, Absolute Neuts (auto) 4.9, Absolute Lymphs (auto) 0.83, Nucleated RBC % 0, Differential Comment SCANNED, Polychromasia RARE, Anisocytosis 3+, Microcytosis 1+, Macrocytosis 1+, Schistocytes RARE 12/24/21 04:23: Sodium 137, Potassium 3.8, Chloride 102, Carbon Dioxide 28.0, Anion Gap 7, BUN 13, Creatinine 0.72, Estim Creat Clear Calc 41.48, Est GFR (MDRD) Af Amer 104, Est GFR (MDRD) Non-Af 86, BUN/Creatinine Ratio 18.1, Glucose 131 H, Calcium 8.4 L, Magnesium 2.0, Total Bilirubin 1.60 H, AST 36, ALT 19, Alkaline Phosphatase 253 H, Total Protein 5.9 L, Albumin 2.3 L, Globulin 3.6, Albumin/Globulin Ratio 0.6 L Micro: Microbiology 12/20/21 15:40 Stool Stool Occult Blood (LUIS) - Final Occult Blood Positive Rhythm Strip Rhythm Strip: Sinus Rhythm Rate: 85 Ectopy: None Physical Exam Const alert Constitutional Narrative: Oriented HEENT normocephalic and head/scalp atraumatic Eyes Eyes Narrative: EOM grossly intact, anicteric Neck supple Resp normal respiratory effort and clear to auscultation bilaterally Cardio regular rate and regular rhythm GI soft to palpation, non-tender and non-distended Extremity Extremity Narrative: No edema appreciated Neuro moves all extremities Neuro Narrative: No overt focal deficits appreciated Psych Psych Narrative: Affect constricted Assessment & Plan Assessment/Plan (1) Gallbladder cancer, carcinoma: (2) Migraines: QUALIFIERS: Migraine type: with aura Status migrainosus presence: without status migrainosus Intractability: not intractable Qualified Code(s): G43.109 - Migraine with aura, not intractable, without status migrainosus PLAN: Plan 71-year-old female with past medical history of metastatic gallbladder CA, 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 Patient was recently discharged on 12/18/2021 with similar presentations. She was found to have duodenal ulcer and biopsy showed adenocarcinoma 1. Acute GI bleed secondary to acute bleeding duodenal metastatic ulcer Patient has been continued on PPI drip as well as octreotide drip, sucralfate and misoprostol No hematochezia seen today Pathology from biopsies from recent EGD showed adenocarcinoma Patient with recent admission for the above, status post treatment with heater probe Hemoglobin 9.4 today, seems to have stabilized GI following, appreciate recommendations 2. Acute blood loss anemia on chronic anemia secondary to #1 Status post 2 units of packed RBCs Hemoglobin is 9. 4 today No further hematochezia noted today 3. Panic attacks/anxiety disorder, slowly improving Patient did well with start of Xanax Continue on Xanax 0.25 mg twice daily, will add third as needed dose for middle of the day Continue BuSpar Discussed BuSpar versus Xanax and risks and benefits with both Agreeable to continue BuSpar, currently on 5 mg p.o. 3 times daily, can consider optimizing as an outpatient or changing to an SSRI/alternate medication that also targets mood more specifically Discussed that I will be unable to prescribe more than several days of Xanax upon discharge and that she will need to follow with her outpatient provider for further management Given very low dose, would not anticipate withdrawal 4. Suspected gastroparesis in the previous admission No nausea and vomiting here. Patient able to tolerate an advancement in her diet We will continue to monitor 5. Hypokalemia/hypomagnesemia, replaced, recheck in a.m. 6. Metastatic gallbladder CA with obstructive jaundice from extrinsic compression from gallbladder cancer CT of the abdomen and pelvis on 12/15/2021 showed right-sided cardia retroperitoneal, cassie hepatis lymph nodes, small left effusion, large masses within the mid abdomen especially in the retroperitoneum suspicious for metastatic disease.? Large area of masslike density within the right hepatic lobe and scattered small masses throughout the liver suspicious of metastatic disease. Patient was in hospice, oncology also following the outpatient, patient remains interested in hospice upon discharge 7. Pancytopenia/bi-cytopenia likely secondary to chemotherapy Remains thrombocytopenic, about her baseline, has improved since admission 8. Hypertension, controlled, continue on losartan 9. DVT prophylaxis?SCDs Charges/Coding Visit Charges Inpatient E&M: 72798 Subs Hosp L2
[2021-12-24] MEDS: 0.9 % NaCl (Sterile) Posiflush 10 mL IV (14:22)
--- NOTE | 2021-12-24 18:01 | PN_ITS ---
Subjective Subjective Patient did well over the weekend without any signs of upper or lower GI bleeding. She is tolerating a diet and has been on PPI drip along with octreotide. Objective Data Objective Data Vital Signs: Vital Signs Temp Pulse Resp BP Pulse Ox O2 Del Method 97.9 F 75 14 114/74 99 Room Air 12/24/21 14:00 12/24/21 15:00 12/24/21 14:00 12/24/21 14:00 12/24/21 14:00 12/24/21 14:00 Oxygen Delivery Method Room Air Weight: 109 lb 1.602 oz Body Mass Index (BMI) 17.6 Intake & Output: Intake and Output for Last 24 Hours 12/22/21 12/23/21 12/24/21 23:59 23:59 23:59 Intake Total 1235.17 / 1235.17 1601.17 / 1601.17 851 / 851 Balance 1235.17 / 1235.17 1601.17 / 1601.17 851 / 851 Medical Nutrition Assessment Dietitian: Malnutrition Criteria Met Start: 12/24/21 11:10 Freq: Status: Active Protocol: Document 12/24/21 12:21 RMA (Rec: 12/24/21 12:22 RMA [id number]) Nutrition Malnutrition Evidence of Malnutrition Exists Yes Malnutrition (moderate): Chronic Evidenced By Suboptimal Energy Intake ( Moderate),Weight Loss ( Moderate),Physical Changes ( Moderate) Clinical Problem Chronic Disease or Condition Related Malnutrition Etiology Moderate to severe pro-albert malnutrition in the context of chronic metastatic disease related to increased energy expenditure and inadequate oral intake Signs/Symptoms as evidenced by moderate muscle/fat wasting in the face , clavicle, arms and legs, ~9% x past 7 months or so, BMI 17 .6, and oral intake meeting less than 75% estimated nutrition needs x past 6-8 months Status Active Problem Unintended Weight Loss Etiology related to predicted inadequate oral intake and increased energy expenditure Signs/Symptoms as evidenced by 9% weight loss in 7 months Status Active Problem Recommendation Dietitian Recommendations/Changes Continue regular diet as ordered. ONS: will offer johns magic cup BID w/ lunch and dinner and provide chocolate milkshake (milk and ice cream only) as per pt request. Pt refusing ensure products. Encouraged pt to bring home ONS as desired since she dislikes ensure products and carnation instant breakfast. Lab / Micro Data Result Diagrams: 12/24/21 04:23 12/24/21 04:23 Labs: Laboratory Results - last 24 hr 12/23/21 23:18: Urine Color Straw, Urine Clarity Clear, Urine pH 6.0, Ur Specific [place] 1.010, Urine Protein Negative, Urine Glucose (UA) Normal, Urine Ketones Negative, Urine Occult Blood 25 H, Urine Nitrite Negative, Urine Bilirubin Negative, Urine Urobilinogen Normal, Ur Leukocyte Esterase Negative, Urine RBC 0-5 SEEN, Urine WBC 0 SEEN, Ur Squamous Epith Cells 0-5 SEEN, Urine Bacteria 0 SEEN, Urine Mucus 0 SEEN 12/24/21 04:23: WBC 6.9, RBC 2.95 L, Hgb 9.4 L, Hct 27.4 L, MCV 92.9, MCH 31.9, MCHC 34.3, RDW Std Deviation 67.7 H, RDW Coeff of [place] 21.3 H, Plt Count 125 L, MPV 9.6, Immature Gran % (Auto) 0.600, Neut % (Auto) 71.0 H, Lymph % (Auto) 12.0 L, [place] % (Auto) 13.4 H, Eos % (Auto) 2.6, Baso % (Auto) 0.4, Absolute Neuts (auto) 4.9, Absolute Lymphs (auto) 0.83, Nucleated RBC % 0, Differential Comment SCANNED, Polychromasia RARE, Anisocytosis 3+, Microcytosis 1+, Macrocytosis 1+, Schistocytes RARE 12/24/21 04:23: Sodium 137, Potassium 3.8, Chloride 102, Carbon Dioxide 28.0, Anion Gap 7, BUN 13, Creatinine 0.72, Estim Creat Clear Calc 41.48, Est GFR (MDRD) Af Amer 104, Est GFR (MDRD) Non-Af 86, BUN/Creatinine Ratio 18.1, Glucose 131 H, Calcium 8.4 L, Magnesium 2.0, Total Bilirubin 1.60 H, AST 36, ALT 19, Alkaline Phosphatase 253 H, Total Protein 5.9 L, Albumin 2.3 L, Globulin 3.6, Albumin/Globulin Ratio 0.6 L Micro: Microbiology 12/20/21 15:40 Stool Stool Occult Blood (LUIS) - Final Occult Blood Positive Rhythm Strip Rhythm Strip: Sinus Rhythm Rate: 85 Ectopy: None Physical Exam Const alert Constitutional Narrative: Oriented HEENT normocephalic and head/scalp atraumatic Eyes Eyes Narrative: EOM grossly intact, anicteric Neck supple Resp normal respiratory effort and clear to auscultation bilaterally Cardio regular rate and regular rhythm GI soft to palpation, non-tender and non-distended Extremity Extremity Narrative: No edema appreciated Neuro moves all extremities Neuro Narrative: No overt focal deficits appreciated Psych Psych Narrative: Affect constricted Assessment & Plan Assessment/Plan (1) Gallbladder cancer, carcinoma: PLAN: Metastatic gallbladder cancer with a poor prognosis. It is unclear if patient is going to go back on hospice when she leaves the facility tomorrow. She can be discharged from GI standpoint as her hemoglobin has remained stable. (2) Acute upper GI bleed: PLAN: Upper GI bleed secondary to duodenal ulcer gallbladder adenocarcinoma. She has been on PPI drip and octreotide. She will need to continue Protonix 40 mg p.o. 3 times a day at home and she will need octreotide 120mg subcutaneous injection once a month. Charges/Coding Visit Charges Inpatient E&M: 00695 Subs Hosp L2
--- NOTE | 2021-12-24 19:54 | NURSING ---
Charting reviewed with Herson Melendrez RN
[2021-12-25 03:00] VITALS: PULSE 67
[2021-12-25 03:30] VITALS: BP 141/71; PULSE 69; RESP 18; TEMP 36.9; O2SAT 97
[2021-12-25] MEDS: ALPRAZolam 0.25 MG Tablet PO ×2 (04:58→11:22)
[2021-12-25] MEDS: Acetaminophen 500 MG Tablet 1000 MG PO (04:59)
[2021-12-25] MEDS: miSOPROStol 200 MCG Tablet PO (05:00)
[2021-12-25 05:30] LABS: Absolute Lymphocyte Count 0.83 X10^3/uL (0.83-4.51); Absolute Neutrophil Count 4.9 X10^3/uL (2.0-7.7); Basophil# 0.03 X10^3/uL; Basophil% 0.4 % (0-1); Eosinophil# 0.21 X10^3/uL; Hematocrit 24.2 % (37-47); Hemoglobin 8.3 g/dL (12.0-15.0); Lymphocyte # 0.83 X10^3/ul (0.83-4.51); Lymphocyte % 11.9 % (19-41); Mean Corp Hgb Conc 34.3 g/dL (32-36); Mean Corpuscular Hgb 32.3 pg (27.0-32.0); Mean Corpuscular Volume 94.2 fL (81-99); Monocyte# 0.93 X10^3/uL; Monocyte% 13.3 % (0-10); NRBC Flagged by Analyzer 0 % (0-5); Neutrophil % 70.3 % (47-70); POSITIVE MORPHOLOGY YES; Platelet Count 147 K/mm3 (150-450); RBC Distribution Width CV 21.4 % (11.6-14.6); RBC Distribution Width SD 70.6 fl (35.1-43.9); Red Blood Count 2.57 M/mm3 (4.2-5.4)
[2021-12-25 05:39] LABS: Differential Indicated SCAN CRITERIA MET
[2021-12-25 05:54] LABS: ALB/GLOB Ratio 0.6 RATIO (0.9-2.4); AST(SGOT) 36 U/L (15-37); Alanine Aminotransfer ALT/SGPT 16 U/L (13-56); Albumin, Serum 2.2 g/dL (3.2-5.0); Alkaline Phosphatase 266 U/L (45-117); Anion Gap 7 (5-15); BUN 16 mg/dL (7-18); BUN/Creat Ratio 25.4 RATIO (10-20); Calcium,Total 8.3 mg/dL (8.5-10.1); Chloride 98 mmol/L (98-107); Creatinine, Serum 0.63 mg/dL (0.55-1.02); EST Glomerular Filtration Rate 99 mL/min (>60); Est Glom Filt Rate - Afr Amer 120 mL/min (>60); Estimated Creatinine Clearance 41.48 ml/min; Globulin 3.8 g/dL (2.2-4.2); Glucose 123 mg/dL (74-106); Potassium 2.9 mmol/L (3.5-5.1); Sodium Level 135 mmol/L (136-145)
[2021-12-25 06:11] LABS: Anisocytosis 2+; Differential Comment SCANNED; Macrocytosis 1+; Microcytosis 1+
[2021-12-25 06:12] LABS: Polychromasia RARE; Schistocytes 1+
[2021-12-25] MEDS: Potassium Chloride Oral Tablet 20 MEQ 40 MEQ PO ×3 (07:00→08:53)
[2021-12-25 07:35] VITALS: PULSE 66
--- NOTE | 2021-12-25 07:58 | PCM.DC ---
Discharge Instructions Diet Discharge Diet: No restrictions Activity Discharge Activity: Return to Normal Activity Follow Up Care Test Results: Test results from this visit will be discussed in further detail at your follow-up appointment, if applicable. Discharge Plan Admission Admit Date/Time: 12/20/21 18:13 Primary Reason for Your Visit: Anemia due to bleeding duodenal ulcer Attending Provider: Nette Santana Primary Care Provider: Unique Mijares Consulting Providers: Carlos Sam ; Jossy Tolbert Instructions Patient Instructions: ED Anxiety Reaction, ED Upper GI Bleeding (Stable), Cancer and Nutrition Foods to ... Additional Instructions / Restrictions: *Please take this with you to your next doctors appointment* - You were given an injection of octreotide prior to discharge, it will be important that you follow-up with Dr. Walsh (the software sales executive you saw in the hospital) for further coordination of your injections -You will also be on pantoprazole 40 mg 3 times a day, please take this as prescribed, a new prescription was sent to your pharmacy on file -Your potassium was low on the day of discharge, this was replaced with oral supplementation. Continue your home supplementation. -Continue sucralfate -Due to significant anxiety you are placed on Xanax which he reported was helpful for anxiety. You will be discharged with 3 days of 0.25 mg 3 times a day as needed and this was sent to your preferred pharmacy on file, [facility] pharmacy on [address] in [facility], it will be important that you follow-up with an outpatient provider for further discussion on continuing this medication. -Please follow with your outpatient oncologist, Dr. Stephens, upon discharge -Please follow-up with Dr. Walsh with gastroenterology upon discharge, please call upon discharge to schedule your hospital follow-up appointment. Phone number is [phone] and the practice is located at [address] [place] [address] -Please call your primary care provider's office upon discharge to schedule a hospital follow up within 1 week. -You have indicated you would like to consider a second opinion, contact information for Dr. Han, a radiation oncologist in the area is provided in this discharge packet, the phone number for his office is [phone]. If desired, please call upon discharge to schedule an appointment -For any concerning signs or symptoms please call 911 or proceed to the nearest emergency department Discharge Orders/Prescriptions Prescriptions: New alprazolam 0.25 mg Tablet 0.25 mg PO TID PRN (Reason: Significant anxiety) 3 Days Qty: 9 0RF Continued potassium chloride 20 mEq Tablet,Er Particles/Crystals 20 meq PO TID losartan 25 mg tablet 25 mg PO DAILY Label Comments: TAKE 1 TABLET BY MOUTH ONCE DAILY acetaminophen 325 mg Tablet 650 mg PO BID PRN (Reason: Migraine Headache) Slow-Mag 71.5 mg tablet,delayed release (DR/EC) 71.5 mg PO TID Label Comments: TAKE 1 TABLET BY MOUTH THREE TIMES DAILY buspirone 5 mg tablet 5 mg PO TID sucralfate 1 gram tablet 1 g PO BID metoclopramide HCl [Reglan] 5 mg tablet 5 mg PO TID misoprostol 200 mcg tablet 200 mcg PO TID Changed pantoprazole 40 mg tablet,delayed release (DR/EC) 40 mg PO TID 30 Days Qty: 90 0RF Referrals / Follow Up: Unique Mijares MD [Primary Care Provider] - Flakita Stephens MD [Med Staff - Active Staff] - Within 1 Week Michael Walsh DO [Med Staff - Active Staff] - Within 1 Week Junior Han DO [Med Staff - Active Staff] - See Referral Note (You have indicated you would like to consider a second opinion, this is contact information for Dr. Han a radiation oncologist in the area. If desired, please call upon discharge to schedule an appointment) Disposition Disposition (needs filled in before D/C Order can be placed): Hospice in Home
[2021-12-25] MEDS: Sucralfate 1 GM Tablet PO (08:51)
[2021-12-25] MEDS: Losartan Potassium 25 MG Tablet PO (08:52)
[2021-12-25 09:30] VITALS: BP 134/71; PULSE 72; RESP 18; TEMP 36.6; O2SAT 98
[2021-12-25 11:00] VITALS: PULSE 87
[2021-12-25] MEDS: Octreotide 0.1 MG/ML ML SC (11:23)
--- NOTE | 2021-12-25 11:37 | CASEMGMT ---
Physician plans on discharging patient today. SW met with patient. One of her daughters was also present. SW confirmed patient plans on returning home on Hospice. Patient's daughter asked about anxiety medication. SW let her know that when the Hospice nurse comes out she can request this. SW will also pass along this message to Hospice as well. SW called Hospice and left a message for Justyna letting her know patient will be going home today. SW will check back with Hospice to make sure they are aware of d/c and anxiety medication. Radha Bravo CANCER RESEARCHER [place]
--- NOTE | 2021-12-25 14:31 | CASEMGMT ---
Addendum entered by Radha Bravo 12/25/21 14:44: VIC also told Justyna that physician started patient on Xanax and this is working well for patient. Family requests that Hospice continue this medication. Radha ARCOS Original Note: VIC called Justyna at Hospice and let her know patient will be discharged today. VIC let her know about the Octreotide injections. Justyna will have to make sure that is on the approved medication list. VIC faxed d/c instructions to Justyna. Radha ARCOS
--- NOTE | 2021-12-25 14:58 | CASEMGMT ---
VIC spoke with Justyna at Hospice and patient cannot be on Hospice while taking Octreotide injections. Justyna feels that Palliative may be of more assistance to patient at this time. Justyna was going to send someone to talk with patient, however patient has left the hospital already. Justyna will send someone out to patient's home to discuss this matter. Radha Bravo SALES PROJECT COORDINATOR [place]
--- NOTE | 2021-12-25 17:02 | PCM.DC.SUM ---
Providers Date of Admission: 12/20/21 Date of Discharge: 12/25/21 Primary Care Physician: Dr. Unique Mijares MD Consultations 12/20/21 18:19 Consult: Gastroenterology Routine Consulting Provider: Ron[facility] Reason for Consult: GI bleed EMERGENT Consult: No MD Notified: Yes Date Notified: 12/20/21 Time Notified: 18:17 Method of Notification: ED Physician Initiated Reason For Visit: GI BLEED Diagnosis Discharge Diagnosis (1) Gallbladder cancer, carcinoma: Status: Acute Code(s): C23 - Malignant neoplasm of gallbladder (2) Acute upper GI bleed: Status: Acute Code(s): K92.2 - Gastrointestinal hemorrhage, unspecified Plan 71-year-old female with past medical history of metastatic gallbladder CA, 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 Patient was recently discharged on 12/18/2021 with similar presentations. She was found to have duodenal ulcer and biopsy showed adenocarcinoma 1. Acute GI bleed secondary to acute bleeding duodenal metastatic ulcer 2. Acute blood loss anemia on chronic anemia secondary to #1 3. Panic attacks/anxiety disorder, slowly improving 4. Suspected gastroparesis in the previous admission 5. Hypokalemia/hypomagnesemia, replaced 6. Metastatic gallbladder CA with obstructive jaundice from extrinsic compression from gallbladder cancer 7. Pancytopenia/bi-cytopenia likely secondary to chemotherapy 8. Hypertension, controlled Medications at Discharge Home Medications potassium chloride 20 mEq tablet,extended release(part/cryst) 20 meq PO TID supplement 05/18/21 acetaminophen 325 mg tablet 650 mg PO BID PRN Migraine Headache 12/13/21 losartan 25 mg tablet 25 mg PO DAILY BP 12/13/21 magnesium chloride 71.5 mg (magnesium chloride) tablet,delayed release (Slow-Mag) 71.5 mg PO TID SUPPLEMENT 12/13/21 buspirone 5 mg tablet 5 mg PO TID ANXIETY 12/20/21 metoclopramide HCl 5 mg tablet (Reglan) 5 mg PO TID STOMACH 12/20/21 misoprostol 200 mcg tablet 200 mcg PO TID STOMACH 12/20/21 sucralfate 1 gram tablet 1 g PO BID GERD 12/20/21 alprazolam 0.25 mg tablet 0.25 mg PO TID PRN Significant anxiety 3 days #9 tabs 12/25/21 octreotide,microspheres 30 mg intramuscular susp, extended release (Sandostatin LAR [place]) 30 mg IM Q4W #1 ea 12/25/21 pantoprazole 40 mg tablet,delayed release 40 mg PO TID GERD 30 days #90 tabs 12/25/21 Hospital Course Summary of Care Provided Minutes Spent on Discharge: 35 Hospital Course: Ms. Peguero is a 71-year-old female with history of gallbladder cancer and high blood pressure who presented 12-20-2021 due to abnormal labs. She had been hospitalized recently with a bleeding duodenal ulcer and was discharged on . She had been doing well but around noon the day of admission became confused her labs showed a hemoglobin of 7.3 down from 8.7 and in the ED her hemoglobin was 6.4. She was given 2 units packed red blood cells and rectal showed no active bleeding that hematochezia the day before was reported. During the previous admission she was noted to have a bleeding ulcer in her duodenum, the biopsy did come back as adenocarcinoma and it was presumed to be metastatic lesion from her known gallbladder carcinoma. On 12/14 the bleeding ulcer was cauterized. Of note she was discharged on to hospice but revoked to this upon presentation. GI, hold and she has been on a PPI and octreotide drip monitor hemoglobin was monitored. She stabilized and was discharged with Protonix 40 mg by mouth 3 times daily and octreotide injections monthly through Dr. Walsh's office. During her admission she had significant anxiety and she was given Xanax 0.25 mg 3 times daily as needed and her BuSpar was continued, short course of this was prescribed and discussed that this would need to be discussed from an outpatient physician as she was prescribed 3 days. Did discuss her low potassium and supplementation and possible need for follow-up lab work. Follow-up with Dr. Stephens on discharge. On the day of discharge she reported feeling roughly the same. Denied any blood per rectum. No chest pain or shortness of breath. Was eating, interested in going home. Second opinion with radiation oncology had been discussed with her and her family by previous provider, they did report interest in possible second opinion. Discussed inpatient versus outpatient with Ms. Ramon and her as well as one of her daughters and their preference was to go home and follow-up for second opinion as an outpatient if desired. Physical Exam Const alert Constitutional Narrative: Oriented HEENT normocephalic and head/scalp atraumatic Eyes Eyes Narrative: EOM grossly intact, anicteric Neck supple Resp normal respiratory effort and clear to auscultation bilaterally Cardio regular rate and regular rhythm GI soft to palpation, non-tender and non-distended Extremity Extremity Narrative: No edema appreciated Neuro moves all extremities Neuro Narrative: No overt focal deficits appreciated Psych Psych Narrative: Affect constricted Weight / BMI Weight Weight: 49.487 kg Body Mass Index (BMI) 17.6 ABG / Lab / Microbiology Data Result Diagrams: 12/25/21 04:44 12/25/21 04:44 Laboratory: Laboratory Results - last 24 hr 12/25/21 04:44: WBC 7.0, RBC 2.57 L, Hgb 8.3 L, Hct 24.2 L, MCV 94.2, MCH 32.3 H, MCHC 34.3, RDW Std Deviation 70.6 H, RDW Coeff of Roldan 21.4 H, Plt Count 147 L, MPV 10.0, Immature Gran % (Auto) 1.100 H, Neut % (Auto) 70.3 H, Lymph % (Auto) 11.9 L, [place] % (Auto) 13.3 H, Eos % (Auto) 3.0, Baso % (Auto) 0.4, Absolute Neuts (auto) 4.9, Absolute Lymphs (auto) 0.83, Nucleated RBC % 0, Differential Comment SCANNED, Polychromasia RARE, Anisocytosis 2+, Microcytosis 1+, Macrocytosis 1+, Schistocytes 1+ 12/25/21 04:44: Sodium 135 L, Potassium 2.9 L, Chloride 98, Carbon Dioxide 30.0, Anion Gap 7, BUN 16, Creatinine 0.63, Estim Creat Clear Calc 41.48, Est GFR (MDRD) Af Amer 120, Est GFR (MDRD) Non-Af 99, BUN/Creatinine Ratio 25.4 H, Glucose 123 H, Calcium 8.3 L, Total Bilirubin 1.50 H, AST 36, ALT 16, Alkaline Phosphatase 266 H, Total Protein 6.0 L, Albumin 2.2 L, Globulin 3.8, Albumin/Globulin Ratio 0.6 L Microbiology: Microbiology 12/20/21 15:40 Stool Stool Occult Blood (LUIS) - Final Occult Blood Positive D/C Instructions Discharge Diet: No restrictions Meaningful Use Info Meaningful Use Diagnoses (Choose all that apply): None applicable Discharge Plan Admission Admit Date/Time: 12/20/21 18:13 Primary Reason for Your Visit: Anemia due to bleeding duodenal ulcer Attending Provider: Nette Santana Primary Care Provider: Unique Mijares Consulting Providers: Carlos Sam ; Jossy Tolbert Instructions Patient Instructions: ED Anxiety Reaction, ED Upper GI Bleeding (Stable), Cancer and Nutrition Foods to ... Additional Instructions / Restrictions: *Please take this with you to your next doctors appointment* - You were given an injection of octreotide prior to discharge, it will be important that you follow-up with Dr. Walsh (the inside barrel lathe operator you saw in the hospital) for further coordination of your injections -You will also be on pantoprazole 40 mg 3 times a day, please take this as prescribed, a new prescription was sent to your pharmacy on file -Your potassium was low on the day of discharge, this was replaced with oral supplementation. Continue your home supplementation. -Continue sucralfate -Due to significant anxiety you are placed on Xanax which he reported was helpful for anxiety. You will be discharged with 3 days of 0.25 mg 3 times a day as needed and this was sent to your preferred pharmacy on file, [facility] [address] [facility], it will be important that you follow-up with an outpatient provider for further discussion on continuing this medication. -Please follow with your outpatient oncologist, Dr. Stephens, upon discharge -Please follow-up with Dr. Walsh with gastroenterology upon discharge, please call upon discharge to schedule your hospital follow-up appointment. Phone number is [phone] and the practice is located at [address] [place] [address] -Please call your primary care provider's office upon discharge to schedule a hospital follow up within 1 week. -You have indicated you would like to consider a second opinion, contact information for Dr. Han, a radiation oncologist in the area is provided in this discharge packet, the phone number for his office is [phone]. If desired, please call upon discharge to schedule an appointment -For any concerning signs or symptoms please call 911 or proceed to the nearest emergency department Discharge Orders/Prescriptions Prescriptions: New alprazolam 0.25 mg Tablet 0.25 mg PO TID PRN (Reason: Significant anxiety) 3 Days Qty: 9 0RF Continued potassium chloride 20 mEq Tablet,Er Particles/Crystals 20 meq PO TID losartan 25 mg tablet 25 mg PO DAILY Label Comments: TAKE 1 TABLET BY MOUTH ONCE DAILY acetaminophen 325 mg Tablet 650 mg PO BID PRN (Reason: Migraine Headache) Slow-Mag 71.5 mg tablet,delayed release (DR/EC) 71.5 mg PO TID Label Comments: TAKE 1 TABLET BY MOUTH THREE TIMES DAILY buspirone 5 mg tablet 5 mg PO TID sucralfate 1 gram tablet 1 g PO BID metoclopramide HCl [Reglan] 5 mg tablet 5 mg PO TID misoprostol 200 mcg tablet 200 mcg PO TID Changed pantoprazole 40 mg tablet,delayed release (DR/EC) 40 mg PO TID 30 Days Qty: 90 0RF No Action Sandostatin LAR [place] 30 mg suspension,extended rel recon 30 mg IM Q4W Qty: 1 0RF Referrals / Follow Up: Unique Mijares MD [Primary Care Provider] - Flakita Stephens MD [Med Staff - Active Staff] - Within 1 Week Michael Walsh DO [Med Staff - Active Staff] - 12/31/21 1:15 pm Junior Han DO [Med Staff - Active Staff] - See Referral Note (You have indicated you would like to consider a second opinion, this is contact information for Dr. Han a radiation oncologist in the area. If desired, please call upon discharge to schedule an appointment) Disposition Disposition (needs filled in before D/C Order can be placed): Hospice in Home Charges/Coding Visit Charges Inpatient E&M: 55352 Subs Hosp L2
== END 2021-12-25 14:50 | disposition hospice, home (50) | DRG 377 ==
LOC: ED 17:19 → PCU 18:21
PROVIDERS: Family Medicine; Internal Medicine; Emergency Provider Emergency Medicine; PCP Internal Medicine; Visit Provider Internal Medicine
DX: K26.0 Acute duodenal ulcer with hemorrhage (principal); K83.1 Obstruction of bile duct; D61.810 Antineoplastic chemotherapy induced pancytopenia; I21.A1 Myocardial infarction type 2; E44.0 Moderate protein-calorie malnutrition; C78.4 Secondary malignant neoplasm of small intestine; C23 Malignant neoplasm of gallbladder; D62 Acute posthemorrhagic anemia; Z68.1 Body mass index [BMI] 19.9 or less, adult; K31.84 Gastroparesis; E87.6 Hypokalemia; I10 Essential (primary) hypertension; G43.101 Migraine with aura, not intractable, with status migrainosus; Z87.891 Personal history of nicotine dependence; F41.0 Panic disorder [episodic paroxysmal anxiety]; T45.1X5A Adverse effect of antineoplastic and immunosuppressive drugs, initial encounter; Z79.899 Other long term (current) drug therapy
CPT/HCPCS: 36415; 36591; 70450; 71046; 72170; 80048; 80053; 81001; 82274; 83735; 84100; 84484; 85025; 85610; 85730; 86850; 86900; 86901; 86920; 86922; 93005; 99284; J7040; J7050; P9016; J2354; J2405; J2916

== ENCOUNTER 2021-12-26 06:48 | Emergency (ER) | payer MEDICARE, OTHER, SELFPAY ==
[2021-12-26 06:49] VITALS: BP 166/87; PULSE 87; RESP 18; TEMP 36.4; O2SAT 97; BMI 19.8
--- NOTE | 2021-12-26 07:28 | CT_ITS ---
STUDY: CT ABDOMEN AND PELVIS WITH CONTRAST REASON FOR EXAM: Female, 71 years old. Diffuse abdominal pain RADIATION DOSAGE (If Supplied By Facility): CTDIvol = ( 8.79 ) mGy, DLP = ( 366.68 ) mGycm TECHNIQUE: Transaxial images were obtained from the dome of the diaphragm to the symphysis pubis without oral contrast. IV 100mL Isovue-300 was administered. Sagittal and coronal images were reconstructed. Individualized dose optimization techniques were used for this CT. COMPARISON: 12/15/2021 FINDINGS: The visualized lung bases are unremarkable. The visualized portions of the heart are within normal limits. Stable suspicious necrotic lymph nodes noted in the right pericardium. Previously noted heterogeneous lesion in the cassie hepatis extending into the left lobe of the liver again measures approximately 5.07 x 3.93 cm. There is persistent intra and extrahepatic biliary dilatation. There are stable simple renal cysts and persistent diffuse extensive low-density metastasis throughout both lobes of the liver largest in the right lobe again measures approximately 8.1 x 6.9 cm. There is non-visualization of the gallbladder, which may be secondary to either contraction or a prior cholecystectomy. Normal spleen. Stable low-density lesion in the proximal body of the pancreas while the tail again shows atrophy. There is persistent bulky abnormal cassie hepatic and perihilar lymphadenopathy consistent with diffuse metastasis. Normal bilateral adrenal glands. Normal right kidney. Normal left kidney. Persistent submucosal thickening in the gastric antrum consistent consistent with gastritis. Nondistended fluid-filled small bowel loops are noted consistent with ileus. Retained stool noted in the colon with scattered colonic diverticula but no CT evidence of acute diverticulitis. Surgical changes noted in the lower mid pelvis without anastomotic leak. There is non-visualization of the appendix. Normal abdominal aorta. Normal inferior vena cava. Diffuse abnormal bulky retroperitoneal lymph nodes again noted. Largest on the right again measures approximately 5 x 3 cm, largest on the left 5.2 x 3.5 cm. Normal urinary bladder. Uterus is present endometrium appears thickened and there are dilated serpiginous vessels around the periphery of the uterus consistent with pelvic congestion. Normal abdominal wall. Bony structures show degenerative change in the lumbar spine and pelvis CT/Abdomen/Pelvis W IV Cont ONLY IMPRESSION: Overall there is little significant interval change since the previous study. There is persistent extensive intrahepatic and extrahepatic metastasis with stable low-density lesions scattered throughout both lobes of the liver. Stable diffuse bulky metastatic adenopathy noted in the cassie hepatis, celiac axis and in the retroperitoneum. Stable suspicious necrotic lymph nodes in the right pericardial Stable intra and extrahepatic biliary dilatation Submucosal thickening in the gastric antrum consistent with gastritis Uterus is present, the endometrium cannot be accurately evaluated with CT, there are dilated serpiginous vessels around the periphery of the uterus Degenerative bony changes Electronically Signed: Tien Zarco MD at 9:04 EDT ,
--- NOTE | 2021-12-26 07:34 | EX.ED.DYSGE1 ---
HPI History of Present Illness Chief Complaint: Abd Pain Informant: patient Narrative Narrative: 71-year-old female with a history of stage IV gallbladder carcinoma presenting to the emergency department with lower abdominal and back pain. The patient was discharged from the hospital yesterday following an admission for a duodenal ulcer bleed. She has had several transfusions recently. She states her bowel movements have returned to normal. She had emesis on the way to the department. She describes the pain as a dull severe ache in the lower abdomen that wraps to into the back. She denies any urinary symptoms. No fevers or URI symptoms. [facility] Medical History ABLA (acute blood loss anemia) Acute delirium Anemia Chemotherapy induced diarrhea Elevated troponin Former tobacco use Gallbladder cancer Gallbladder cancer, carcinoma HTN (hypertension) Migraines Rupture of small intestine Seasonal allergies Vaginal atrophy Home Medications potassium chloride 20 mEq tablet,extended release(part/cryst) 20 meq PO TID supplement 05/18/21 [History Last Taken 12/20/21] acetaminophen 325 mg tablet 650 mg PO BID PRN Migraine Headache 12/13/21 [History Last Taken 12/20/21 10:00] losartan 25 mg tablet 25 mg PO DAILY BP 12/13/21 [History Last Taken 12/19/21 16:00] magnesium chloride 71.5 mg (magnesium chloride) tablet,delayed release (Slow-Mag) 71.5 mg PO TID SUPPLEMENT 12/13/21 [History Last Taken 12/20/21] metoclopramide HCl 5 mg tablet (Reglan) 5 mg PO TID STOMACH 12/20/21 [History Last Taken 12/20/21] misoprostol 200 mcg tablet 200 mcg PO TID STOMACH 12/20/21 [History Last Taken 12/20/21] sucralfate 1 gram tablet 1 g PO BID GERD 12/20/21 [History Last Taken 12/19/21] alprazolam 0.25 mg tablet 0.25 mg PO TID PRN Significant anxiety 3 days #9 tabs 12/25/21 [Rx Last Taken Unknown] octreotide,microspheres 30 mg intramuscular susp, extended release (Sandostatin LAR Dep[place]) 30 mg IM Q4W #1 ea 12/25/21 [Rx Last Taken Unknown] pantoprazole 40 mg tablet,delayed release 40 mg PO TID GERD 30 days #90 tabs 12/25/21 [Rx Last Taken Unknown] oxycodone 5 mg tablet See Rx Instructions .Route .COMPLEX PRN pain 7 days #28 tabs 12/26/21 [Rx Last Taken Unknown] Allergy/AdvReac Type Severity Reaction Status Date / Time erythromycin base Allergy Mild upset Verified 12/26/21 06:55 stomach Sulfa (Sulfonamide Allergy Mild dizziness, Verified 12/26/21 06:55 Antibiotics) nausea, sweaty diphenhydramine AdvReac Other Verified 12/26/21 06:55 [From Benadryl] prochlorperazine AdvReac Chest Verified 12/26/21 06:55 [From Compazine] tightness Family History Brother Prostate cancer Drug abuse Alcohol abuse Mother Hypertension HLD (hyperlipidemia) Pulmonary embolism Father Glaucoma Surgical History Bartholin cyst History of unilateral salpingectomy S/P ectopic S/P small bowel resection Social History household members: spouse Smoking Status: Former smoker alcohol intake: never substance use type: does not use caffeine: No what type of physical activity do you participate in: walking, yoga and other details: ti kaye for balance frequency: daily seatbelt use: always do you feel safe at home: Yes additional social history: -[place] Patient works at [employer] ROS ED Constitutional Constitutional ED: Denies chills or weight loss Eyes Eyes: Denies change in vision or diplopia ENT ENT ED: Denies ear pain, rhinorrhea or sore throat Cardiovascular Cardiovascular: Denies chest pain, orthopnea, palpitations or racing heartbeat Respiratory/Chest Respiratory/Chest: Denies cough, dyspnea or orthopnea Gastrointestinal Gastrointestinal: Reports abdominal pain; Denies constipation, diarrhea, nausea or vomiting Genitourinary Genitourinary ED: Denies dysuria, hematuria or urinary frequency Musculoskeletal Musculoskeletal: Reports back pain; Denies arthralgias or myalgias Integumentary Denies abscess or rash Neurologic Neurologic: Denies headache(s) or weakness Psychiatric Psychiatric: Denies anxiety, depression, suicidal ideation or suicidal thoughts Endocrine Endocrinology: Denies polydipsia, polyphagia or polyuria Allergic/Immunologic Allergic/Immunologic ED: Denies mouth swelling, tongue swelling or urticaria EXAM Physical Exam Const Vital Signs: 12/26/21 06:49 Temperature 97.5 F L Temperature Source Oral Pulse Rate 87 Respiratory Rate 18 Blood Pressure 166/87 H Blood Pressure Mean 113 Pulse Ox 97 Oxygen Delivery Method Room Air MDM MDM MDM Narrative Medical decision making narrative: Patient received morphine for pain. White count 8.6. Hemoglobin stable from yesterday at 8.1. Platelet count noted to be 149. Glucose of 140 with normal creatinine at 0.7. Alk phos elevated at 327 total bilirubin 1.7 with a direct bilirubin of 0.63. Urinalysis shows no overt infection. CT of the abdomen pelvis with IV contrast was obtained. This shows no significant change from prior. I do not see obstruction of the intestines or of the renal system. There is noted large tumor burden and lymph node enlargement. Clinically I feel this is most likely going to be pain from her cancer. There is no problem writing her additional pain medication to have at home but as discussed with her potential problems include constipation confusion and nausea. Her and her family note understanding. This point I will write for her to have oxycodone. Would recommend working with her oncologist and possibly palliative care to find a comfortable pain management routine. Lab Data Labs: Laboratory Results - last 24 hr 12/26/21 12/26/21 12/26/21 07:45 07:45 08:50 WBC 8.6 RBC 2.51 L Hgb 8.1 L Hct 23.9 L MCV 95.2 MCH 32.3 H MCHC 33.9 RDW Std Deviation 73.4 H RDW Coeff of Roldan 22.2 H Plt Count 149 L MPV 9.5 Immature Gran % (Auto) 1.500 H Neut % (Auto) 79.2 H Lymph % (Auto) 6.5 L [place] % (Auto) 12.0 H Eos % (Auto) 0.5 Baso % (Auto) 0.3 Absolute Neuts (auto) 6.8 Absolute Lymphs (auto) 0.56 L Nucleated RBC % 0 Differential Comment Platelet Estimate ADEQUATE RBC Morphology N CHROM Anisocytosis 2+ Sodium 136 Potassium 3.0 L Chloride 98 Carbon Dioxide 31.0 Anion Gap 7 BUN 12 Creatinine 0.70 Estim Creat Clear Calc 46.86 Est GFR (MDRD) Af Amer 106 Est GFR (MDRD) Non-Af 88 BUN/Creatinine Ratio 17.1 Glucose 140 H Calcium 8.8 Total Bilirubin 1.70 H Direct Bilirubin 0.63 H AST 39 H ALT 21 Alkaline Phosphatase 327 H Total Protein 6.5 Albumin 2.5 L Globulin 4.0 Lipase 32 L Urine Color Yellow Urine Clarity Clear Urine pH 7.0 Ur Specific [place] 1.010 Urine Protein 100 H Urine Glucose (UA) Normal Urine Ketones Negative Urine Occult Blood 50 H Urine Nitrite Negative Urine Bilirubin Negative Urine Urobilinogen Normal Ur Leukocyte Esterase Negative Urine RBC 0-5 SEEN Urine WBC 0 SEEN Ur Squamous Epith Cells 0-5 SEEN Urine Bacteria RARE Urine Mucus 0 SEEN Radiography Diagnostic Testing: Clinical Impression(s) from Imaging Studies Abdomen/Pelvis CT 12/26/21 07:28 IMPRESSION: Overall there is little significant interval change since the previous study. There is persistent extensive intrahepatic and extrahepatic metastasis with stable low-density lesions scattered throughout both lobes of the liver. Stable diffuse bulky metastatic adenopathy noted in the cassie hepatis, celiac axis and in the retroperitoneum. Stable suspicious necrotic lymph nodes in the right pericardial Stable intra and extrahepatic biliary dilatation Submucosal thickening in the gastric antrum consistent with gastritis Uterus is present, the endometrium cannot be accurately evaluated with CT, there are dilated serpiginous vessels around the periphery of the uterus Degenerative bony changes Electronically Signed: Tien Zarco MD at 9:04 EDT Reading Location ID and State: [facility] / [place] , Service support , Discharge Plan Triage Chief Complaint: Abd Pain Other Complaint: Back ED Provider: Jose L Dorsey Dx/Rx/DC Orders Clinical Impression: Thrombocytopenia, Gallbladder cancer, carcinoma, Abdominal pain, Acute back pain, Anemia Instructions: Medicine for Pain Prescriptions: New oxycodone 5 mg tablet See Rx Instructions .ROUTE .COMPLEX PRN (Reason: pain) 7 Days Qty: 28 0RF Rx Instructions: 1-2 tabs p.o. every 6 hours No Action potassium chloride 20 mEq Tablet,Er Particles/Crystals 20 meq PO TID losartan 25 mg tablet 25 mg PO DAILY Label Comments: TAKE 1 TABLET BY MOUTH ONCE DAILY acetaminophen 325 mg Tablet 650 mg PO BID PRN (Reason: Migraine Headache) Slow-Mag 71.5 mg tablet,delayed release (DR/EC) 71.5 mg PO TID Label Comments: TAKE 1 TABLET BY MOUTH THREE TIMES DAILY sucralfate 1 gram tablet 1 g PO BID metoclopramide HCl [Reglan] 5 mg tablet 5 mg PO TID misoprostol 200 mcg tablet 200 mcg PO TID alprazolam 0.25 mg Tablet 0.25 mg PO TID PRN (Reason: Significant anxiety) 3 Days Qty: 9 0RF pantoprazole 40 mg tablet,delayed release (DR/EC) 40 mg PO TID 30 Days Qty: 90 0RF Sandostatin [place] 30 mg suspension,extended rel recon 30 mg IM Q4W Qty: 1 0RF Rx Instructions: LAST SHOT YESTERDAY Primary Care Provider: Unique Mijares Referrals: Unique Mijares MD [Primary Care Provider] - As soon as possible Flakita Stephens MD [Med Staff - Active Staff] - As soon as possible Disposition Disposition: Home, Self Care
[2021-12-26] MEDS: Morphine 4 MG/ML Syringe IV ×2 (07:47→08:10)
[2021-12-26] MEDS: Ondansetron 4 MG/2 ML Vial IV (07:47)
[2021-12-26] MEDS: 0.9% Normal Saline 1,000 ML 1000 ML IV (07:50)
[2021-12-26 08:01] LABS: Absolute Lymphocyte Count 0.56 X10^3/uL (0.83-4.51); Absolute Neutrophil Count 6.8 X10^3/uL (2.0-7.7); Basophil# 0.03 X10^3/uL; Basophil% 0.3 % (0-1); Eosinophil# 0.04 X10^3/uL; Eosinophils% 0.5 % (0-5); Hematocrit 23.9 % (37-47); Hemoglobin 8.1 g/dL (12.0-15.0); Lymphocyte # 0.56 X10^3/ul (0.83-4.51); Lymphocyte % 6.5 % (19-41); Mean Corp Hgb Conc 33.9 g/dL (32-36); Mean Corpuscular Hgb 32.3 pg (27.0-32.0); Mean Corpuscular Volume 95.2 fL (81-99); Mean Platelet Vol. 9.5 fl (6.2-12.0); Monocyte# 1.03 X10^3/uL; NRBC Flagged by Analyzer 0 % (0-5); Neutrophil # 6.79 X10^3/uL (2.7-7.7); Neutrophil % 79.2 % (47-70); POSITIVE DIFFERENTIAL YES; POSITIVE MORPHOLOGY YES; Platelet Count 149 K/mm3 (150-450); RBC Distribution Width CV 22.2 % (11.6-14.6); RBC Distribution Width SD 73.4 fl (35.1-43.9); Red Blood Count 2.51 M/mm3 (4.2-5.4); White Blood Count 8.6 K/mm3 (4.4-11.0)
[2021-12-26 08:08] LABS: Differential Indicated SCAN CRITERIA MET
[2021-12-26 08:27] LABS: AST(SGOT) 39 U/L (15-37); Alanine Aminotransfer ALT/SGPT 21 U/L (13-56); Albumin, Serum 2.5 g/dL (3.2-5.0); Alkaline Phosphatase 327 U/L (45-117); Anion Gap 7 (5-15); BUN 12 mg/dL (7-18); BUN/Creat Ratio 17.1 RATIO (10-20); Bilirubin, Direct 0.63 mg/dL (0.00-0.30); Calcium,Total 8.8 mg/dL (8.5-10.1); Chloride 98 mmol/L (98-107); EST Glomerular Filtration Rate 88 mL/min (>60); Est Glom Filt Rate - Afr Amer 106 mL/min (>60); Estimated Creatinine Clearance 46.86 ml/min; Glucose 140 mg/dL (74-106); Lipase 32 U/L (73-393); Protein, Total 6.5 g/dL (6.4-8.2); Sodium Level 136 mmol/L (136-145)
[2021-12-26 08:31] LABS: Anisocytosis 2+; Platelet Estimate ADEQUATE (ADEQ); Red Cell Morphology N CHROM NORMAL (NORM C&C)
[2021-12-26 09:01] LABS: Mucous, Urine 0 SEEN /hpf (<or=2+); White Blood Cells 0 SEEN /hpf (0-5)
[2021-12-26 09:09] LABS: Color, Urine Yellow (Yellow); Glucose, Dipstick Normal (Normal); Ketone-Dipstick Negative (Negative); Leukocyte Esterase-Dipstick Negative /ul (Negative); Nitrite-Dipstick Negative (Negative); Occult Blood-Urine 50 /ul (Negative); Protein-Dipstick 100 mg/dl (Negative); Urine Bilirubin Dipstick Negative (Negative); Urine Clarity Clear (Clear); Urine Urobilinogen Normal (Normal)
[2021-12-26 09:15] LABS: Bacteria RARE /hpf (None Seen); Red Blood Cells-Urine 0-5 SEEN /hpf (0-5); Squamous Epithelial Cells - UA 0-5 SEEN /hpf (5-10)
[2021-12-26 09:48] VITALS: BP 129/74; PULSE 68; RESP 16; O2SAT 95
== END 2021-12-26 09:50 | disposition home or self-care (01) ==
PROVIDERS: Emergency Provider Emergency Medicine; PCP Internal Medicine; Visit Provider Emergency Medicine
DX: D69.6 Thrombocytopenia, unspecified (principal); C23 Malignant neoplasm of gallbladder; R10.9 Unspecified abdominal pain; M54.9 Dorsalgia, unspecified; R11.2 Nausea with vomiting, unspecified; I10 Essential (primary) hypertension; Z87.891 Personal history of nicotine dependence
CPT/HCPCS: 36591; 74177; 80048; 80076; 81001; 83690; 85025; 99282; J7030; Q9967; J2405